=== PATIENT | female | born 1995 | race Hispanic/Latino ===

== ENCOUNTER 2016-08-30 14:08 | Emergency (ER) | payer OTHER ==
[~2016-08-30] VITALS: Ht 157.5 cm; Wt 49.9 kg
[2016-08-30 15:21] LABS: BASO % 0.5 % (0.0-1.0); EOS # 0.1 K/mm3 (0.0-0.50); EOS % 1.1 % (0.0-3.0); LARGE UNSTAINED CELL # 0.2 K/mm3 (0.0-0.4); LARGE UNSTAINED CELL % 2.5 % (0.0-4.0); LYMPH # 2.6 K/mm3 (1.5-6.5); LYMPH % 41.1 % (24.0-44.0); MEAN CORPUSCULAR HEMOGLOBIN 30.2 pg (27.0-33.0); MEAN CORPUSCULAR HGB CONC 33.7 g/dl (32.0-36.5); MEAN CORPUSCULAR VOLUME 89.7 fl (80.0-96.0); MONO # 0.4 K/mm3 (0.0-0.8); MONO % 6.5 % (0.0-5.0); NEUTROPHILS # 2.9 K/mm3 (1.8-7.7); NEUTROPHILS % 48.2 % (36.0-66.0); PLATELET COUNT, AUTOMATED 208 k/mm3 (150-450); WHITE BLOOD COUNT 5.9 K/mm3 (4.0-10.0)
[2016-08-30 16:47] VITALS: BP 121/56
== END 2016-08-30 17:11 | disposition home or self-care (01) ==
LOC: M ED 15:07
DX: N83.291 Other ovarian cyst, right side (principal); Z3A.01 Less than 8 weeks gestation of pregnancy

== ENCOUNTER → 2016-09-02 | Outpatient (CLI) | payer OTHER | LOC: M LAB 09:26 | PROVIDERS: ATTEND Nurse Practitioner Family | DX: R10.9 Unspecified abdominal pain (principal) ==

== ENCOUNTER → 2016-09-11 | Outpatient (CLI) | payer OTHER ==
[~2016-09-11] MED LIST: BENA25TA9 PO; KEFL500C7 PO; PRENTAB55 PO
[2016-09-11 13:27] LABS: BASO % 0.5 % (0.0-1.0); EOS # 0.1 K/mm3 (0.0-0.50); EOS % 1.6 % (0.0-3.0); LARGE UNSTAINED CELL # 0.1 K/mm3 (0.0-0.4); LARGE UNSTAINED CELL % 2.2 % (0.0-4.0); LYMPH # 2.1 K/mm3 (1.5-6.5); LYMPH % 39.8 % (24.0-44.0); MEAN CORPUSCULAR HEMOGLOBIN 30.5 pg (27.0-33.0); MEAN CORPUSCULAR HGB CONC 33.6 g/dl (32.0-36.5); MEAN CORPUSCULAR VOLUME 90.9 fl (80.0-96.0); MONO # 0.3 K/mm3 (0.0-0.8); MONO % 6.2 % (0.0-5.0); NEUTROPHILS # 2.5 K/mm3 (1.8-7.7); NEUTROPHILS % 49.7 % (36.0-66.0); PLATELET COUNT, AUTOMATED 167 k/mm3 (150-450); RED CELL DISTRIBUTION WIDTH 12.8 % (11.5-14.5); WHITE BLOOD COUNT 4.9 K/mm3 (4.0-10.0)
[2016-09-11 14:19] LABS: HBsAg Prenatal NEGATIVE (NEGATIVE)
== END ==
LOC: M SMT 09:15
PROVIDERS: ATTEND Advanced Practice Midwife
DX: Z34.81 Encounter for supervision of other normal pregnancy, first trimester (principal)

== ENCOUNTER 2016-09-16 15:00 | Emergency (ER) | payer OTHER ==
[~2016-09-16] VITALS: Ht 160 cm; Wt 42.6 kg
[2016-09-16 15:01] VITALS: BP 111/61
[2016-09-16] MEDS ORDERED: PRENTAB55 PO (15:33)
[2016-09-16] MEDS ORDERED: KEFL500C7 PO (16:07)
[2016-09-16] MEDS ORDERED: BENA25TA9 PO (16:07)
== END 2016-09-16 16:19 | disposition home or self-care (01) ==
LOC: M ED 15:00
DX: L03.114 Cellulitis of left upper limb (principal)

== ENCOUNTER 2016-12-04 12:27 | Emergency (ER) | payer OTHER ==
[~2016-12-04] VITALS: Ht 160 cm; Wt 52.3 kg
[2016-12-04 12:27] VITALS: BP 117/59
[~2016-12-04 12:27] MED LIST changes: +BENA25TA10 PO; -BENA25TA9 PO; +KEFL500C17 PO; -KEFL500C7 PO
== END 2016-12-04 13:36 | disposition home or self-care (01) ==
LOC: M ED 12:27
DX: O9A.212 Injury, poisoning and certain other consequences of external causes complicating pregnancy, second trimester (principal); S93.601A Unspecified sprain of right foot, initial encounter; Z3A.18 18 weeks gestation of pregnancy; X50.1XXA Overexertion from prolonged static or awkward postures, initial encounter; Y92.099 Unspecified place in other non-institutional residence as the place of occurrence of the external cause; Y93.01 Activity, walking, marching and hiking; Y99.9 Unspecified external cause status

== ENCOUNTER → 2016-12-17 | Outpatient (CLI) | payer OTHER ==
[~2016-12-17] MED LIST changes: +ACET50TA PO; +PRENTAB9 PO
--- NOTE | 2016-12-18 03:16 | REP ---
Clinical: Anatomical evaluation. Comparison: 08/30/2016 . Findings: Examination demonstrates a single live intrauterine in breech presentation. motion is identified by technologist. Placenta is noted anteriorly and grade zero without evidence for placenta previa or abruption. Amniotic fluid volume is normal. Cervix measures 4.9 cm in length and appears closed. No evidence for nuchal cord. Gestational age by current measurements 20 weeks 1 day with BISI 05/05/2017 . FHR equals 150 beats per minute. BPD 4.7 cm 20 weeks 0 days HC 17.9 cm 20 weeks 2 days AC 14.8 cm 20 weeks 1 day FL 3.4 cm 20 weeks 5 days HL 3.3 cm 21 weeks 1 day HC/AC ratio 1.21 Estimated weight 349 grams ( 56 percentile). Anatomical assessment demonstrates normal structures including cranium, choroid plexus, cavum, cerebellum/posterior fossa, lungs, diaphragm, stomach, cord insertion/three-vessel cord, kidneys/bladder, spine, and extremities. Impression: Single live intrauterine in breech presentation demonstrating appropriate estimated weight based on current measurements. Limited evaluation of the facial features and heart/ventricular outflow tracts may warrant reevaluation and follow-up. No abnormalities identified. Signed by Sachin Montgomery MD 12/18/2016 03:07 A
== END ==
LOC: M SMT 13:10
PROVIDERS: ATTEND Advanced Practice Midwife
DX: Z34.80 Encounter for supervision of other normal pregnancy, unspecified trimester (principal)

== ENCOUNTER → 2017-01-14 | Outpatient (CLI) | payer OTHER ==
--- NOTE | 2017-01-14 14:42 | REP ---
OB ULTRASOUND: Real-time sonographic evaluation of the gravid uterus is performed. There is a single living intrauterine gestation with an estimated gestational age of 24 weeks 1 day, EDC 05/05/2017. Today's measurements indicate appropriate growth. BPD 60 mm = 24 weeks 3 days, 57th percentile HC 223 mm = 24 weeks 3 days, 52nd percentile AC 194 mm = 24 weeks 1 day, 50th percentile Femur length 43 mm = 24 weeks 1 day, 50th percentile HC/AC ratio 1.15 within normal range. Estimated weight 667 grams, 45th percentile. Cervix is closed and measures 5.8 cm in length. heart rate 144 beats per minute. SEEN/GROSSLY UNREMARKABLE Lateral ventricles Yes Posterior fossa Yes Upper lip Yes Four-chamber heart Yes LVOT Yes RVOT Yes Stomach Yes Cord insertion Yes Three vessel cord Yes Kidneys Yes Bladder Yes Spine No position: Breech. Placenta: Anterior and grade 1 with no previa or abruption. Amniotic fluid: Within normal limits. Signed by Gurpreet Henriquez MD 01/14/2017 02:44 P
== END ==
LOC: M SMT 13:04
PROVIDERS: ATTEND Specialist
DX: Z34.82 Encounter for supervision of other normal pregnancy, second trimester (principal); Z36.2 Encounter for other antenatal screening follow-up

== ENCOUNTER 2017-01-29 14:54 | Outpatient (CLI) | payer OTHER ==
[~2017-01-29] VITALS: Ht 160 cm; Wt 59.1 kg
[~2017-01-29 14:54] MED LIST changes: -ACET50TA PO; -PRENTAB9 PO
[2017-01-29] MEDS ORDERED: PRENTAB9 PO (15:16)
[2017-01-29] MEDS ORDERED: ACET50TA PO (15:16)
[2017-01-29 16:00] VITALS: BP 102/51
[2017-01-29] MEDS ORDERED: PERCOCET 5MG/325MG TAB PO ONE (16:00)
[2017-01-29 16:52] VITALS: BP 101/52
== END 2017-01-29 17:01 | disposition home or self-care (01) ==
LOC: M LDO 14:54
PROVIDERS: ATTEND Specialist
DX: O26.892 Other specified pregnancy related conditions, second trimester (principal); Z3A.26 26 weeks gestation of pregnancy; M54.5 Low back pain; M46.1 Sacroiliitis, not elsewhere classified

== ENCOUNTER 2017-02-05 19:42 | Outpatient (CLI) | payer OTHER ==
[~2017-02-05] VITALS: Ht 160 cm; Wt 60.6 kg
[~2017-02-05 19:42] MED LIST changes: +ACET50TA PO; +PRENTAB9 PO
[2017-02-05 20:08] VITALS: BP 106/55
[2017-02-05] MEDS ORDERED: CYCLOBENZAPRINE 10 MG TAB PO ONE (22:00)
== END 2017-02-05 22:30 | disposition home or self-care (01) ==
LOC: M LDO 19:42
PROVIDERS: ATTEND Obstetrics & Gynecology
DX: O26.892 Other specified pregnancy related conditions, second trimester (principal); Z3A.27 27 weeks gestation of pregnancy; M54.5 Low back pain

== ENCOUNTER → 2017-04-09 | Outpatient (REF) | payer OTHER | LOC: M LAB REF 17:00 | DX: Z34.83 Encounter for supervision of other normal pregnancy, third trimester (principal) ==

== ENCOUNTER 2017-04-15 07:28 | Inpatient (IN) | payer OTHER ==
[2017-04-15 08:34] LABS: HEMATOCRIT 38.6 % (36.0-47.0); HEMOGLOBIN 12.8 g/dl (12.0-16.0); MEAN CORPUSCULAR HGB CONC 33.2 g/dl (32.0-36.5); MEAN CORPUSCULAR VOLUME 87.3 fl (80.0-96.0); PLATELET COUNT, AUTOMATED 184 10^3/uL (150-450); RED BLOOD COUNT 4.42 10^6/uL (4.00-5.40); RED CELL DISTRIBUTION WIDTH 14.2 % (11.5-14.5)
[2017-04-15] MEDS: BUTORPHANOL 2 MG/ML INJ (J0595) IV (08:54)
[2017-04-15] MEDS: PROMETHAZINE INJ 25 MG/ML VIAL (J2550) IV (08:54)
[2017-04-15] MEDS: LACTATED RINGER'S 1000 ML IV (11:59)
[2017-04-15] MEDS ORDERED: FENTANYL 2MCG/ML ROPIVACAINE 0.2% IN 0.9% NACL 200ML IVBAG As Ordered (12:54)
[2017-04-15] MEDS: LR 1,000 ML IV ×2 (13:32→19:13)
[2017-04-15] MEDS ORDERED: EPIDURAL/PCA KEYS XX (16:00)
[2017-04-15] MEDS ORDERED: REFRIGERATOR IV KEYS XX (16:00)
[2017-04-15] MEDS ORDERED: NALOXONE INJ 0.4 MG/1 ML VIAL (J2310) IV (16:00)
[2017-04-15] MEDS ORDERED: EPIDURAL COMMENT XX (16:00)
[2017-04-15] MEDS ORDERED: LACTATED RINGER'S 1000 ML IV (16:00)
[2017-04-15] MEDS ORDERED: diphenhydrAMINE INJ 50MG/ML VIAL (J1200) IV (16:00)
[2017-04-15] MEDS ORDERED: ePHEDrine INJ 50 MG/ML VIAL IV (16:00)
[2017-04-15] MEDS ORDERED: FENTANYL/ROPIVACAINE/NACL BAG 200 ML EPIDURAL (16:00)
[2017-04-15] MEDS ORDERED: ONDANSETRON 4MG/2ML VIAL (J2405) IV ×2 (16:00→19:15)
[2017-04-15] MEDS ORDERED: OXYTOCIN 30 UNITS IN 0.9% NaCl 500ML IV BAG (J2590) As Ordered (18:41)
[2017-04-15] MEDS: OXYTOCIN DRIP 30 UNITS in APPROPRIATE DILUENT 1 EA IV (19:13)
[2017-04-15] MEDS ORDERED: PROMETHAZINE 25 MG TAB PO (19:15)
[2017-04-15] MEDS ORDERED: RHOGAM 300 MCG (1500 IU) INJ (J2790) IM (19:15)
[2017-04-15] MEDS ORDERED: DOCUSATE SODIUM 100 MG CAP PO (19:15)
[2017-04-15] MEDS ORDERED: DIBUCAINE 1% OINTMENT 30GM TOP (19:15)
[2017-04-15] MEDS ORDERED: MEASLES,MUMPS,RUBELLA VACCINE INJ (MMR-II) (90707) SC (19:15)
[2017-04-16] MEDS: ACETAMINOPHEN 500 MG TAB PO ×3 (02:58→19:26)
[2017-04-16] MEDS: IBUPROFEN 800 MG TAB PO ×2 (04:06→05:57)
[2017-04-16] MEDS: PRENATAL VITAMINS CHEWABLE TABLET PO (08:03)
[2017-04-16] MEDS: KETOROLAC 30 MG/ML VIAL (J1885) IV (20:49)
[2017-04-17] MEDS: KETOROLAC 30 MG/ML VIAL (J1885) IV ×2 (03:18→09:32)
[2017-04-17] MEDS: ACETAMINOPHEN 500 MG TAB PO (03:18)
[2017-04-17] MEDS: PRENATAL VITAMINS CHEWABLE TABLET PO (09:31)
== END 2017-04-17 12:50 | disposition home or self-care (01) | DRG 560 ==
LOC: M LDO 07:28 → M LDI 08:00 → M OBS 21:29
PROVIDERS: Obstetrics & Gynecology
PROC: 10E0XZZ Delivery of Products of Conception, External Approach (ICD-10-PCS; principal; 2017-04-15)
PROC: 10907ZC Drainage of Amniotic Fluid, Therapeutic from Products of Conception, Via Natural or Artificial Opening (ICD-10-PCS; 2017-04-15)
PROC: 0HQ9XZZ Repair Perineum Skin, External Approach (ICD-10-PCS; 2017-04-15)
DX: O34.211 Maternal care for low transverse scar from previous cesarean delivery (principal); O70.0 First degree perineal laceration during delivery; Z37.0 Single live birth; Z3A.37 37 weeks gestation of pregnancy

== ENCOUNTER → 2017-06-11 | Outpatient (CLI) | payer OTHER | LOC: M SMT 14:03 | DX: M54.6 Pain in thoracic spine (principal); M53.85 Other specified dorsopathies, thoracolumbar region | CPT/HCPCS: 72070 ==

== ENCOUNTER → 2017-07-08 | Outpatient (REF) | payer OTHER | LOC: M SFHCPLAZ 14:37 | DX: Z00.00 Encounter for general adult medical examination without abnormal findings (principal) | CPT/HCPCS: 36415 ==

== ENCOUNTER → 2017-07-15 | Outpatient (REF) | payer OTHER ==
[2017-07-15 15:57] LABS: BASO % 0.4 % (0.0-1.0); EOS # 0.1 10^3/uL (0.0-0.50); EOS % 1.4 % (0.0-3.0); HEMATOCRIT 40.6 % (36.0-47.0); HEMOGLOBIN 13.3 g/dl (12.0-15.5); IMMATURE GRANULOCYTE % 0.1 % (0-3.0); LYMPH # 2.4 10^3/uL (1.5-6.5); LYMPH % 34.1 % (24.0-44.0); MEAN CORPUSCULAR HEMOGLOBIN 28.6 pg (27.0-33.0); MEAN CORPUSCULAR HGB CONC 32.8 g/dl (32.0-36.5); MEAN CORPUSCULAR VOLUME 87.3 fl (80.0-96.0); MONO # 0.6 10^3/uL (0.0-0.8); MONO % 8.9 % (0.0-5.0); NEUTROPHILS # 3.9 10^3/uL (1.8-7.7); NEUTROPHILS % 55.1 % (36.0-66.0); PLATELET COUNT, AUTOMATED 230 10^3/uL (150-450); RED BLOOD COUNT 4.65 10^6/uL (4.00-5.40); RED CELL DISTRIBUTION WIDTH 13.7 % (11.5-14.5); WHITE BLOOD COUNT 7.1 10^3/uL (4.0-10.0)
[2017-07-15 16:18] LABS: ALBUMIN/GLOBULIN RATIO 0.98 (1.00-1.93); ALKALINE PHOSPHATASE 88 U/L (45-117); ALT/SGPT 51 U/L (12-78); ANION GAP 6 MEQ/L (8-16); AST/SGOT 28 U/L (7-37); BILIRUBIN,TOTAL 0.3 MG/DL (0.2-1.0); BLOOD UREA NITROGEN 13 MG/DL (7-18); CARBON DIOXIDE LEVEL 30 MEQ/L (21-32); CHLORIDE LEVEL 104 MEQ/L (98-107); CREATININE FOR GFR 0.69 MG/DL (0.55-1.30); FREE T4 0.98 NG/DL (0.76-1.46); GLOMERULAR FILTRATION RATE > 60.0 (>60); GLUCOSE, FASTING 94 MG/DL (70-100); POTASSIUM SERUM 4.4 MEQ/L (3.5-5.1); SODIUM LEVEL 140 MEQ/L (136-145); TOTAL PROTEIN 8.1 GM/DL (6.4-8.2)
[2017-07-15 16:26] LABS: TOTAL 25(OH) VITAMIN D 15.9 NG/ML (30.0-100.0)
== END ==
LOC: M SFHCPLAZ 13:04
DX: M54.5 Low back pain (principal); R41.840 Attention and concentration deficit; F41.9 Anxiety disorder, unspecified
CPT/HCPCS: 84443

== ENCOUNTER 2018-01-10 17:57 | Emergency (ER) | payer OTHER, MEDICAID ==
[2018-01-10 19:47] LABS: KETONE, URINE AUTO RFX NEGATIVE (NEGATIVE); LEUKOCYTE ESTERASE UR AUTO RFX NEGATIVE (NEGATIVE); NITRITE, URINE AUTO RFX NEGATIVE (NEGATIVE); RBC, URINE AUTO RFX 1 /HPF (0-3); SPECIFIC GRAVITY UR AUTO RFX 1.005 (1.002-1.035); SQUAM EPITHELIAL CELL UR AURFX 1 /HPF (0-6); WBC, URINE AUTO RFX 0 /HPF (0-3)
[2018-01-10 21:58] LABS: CONTROL LINE UCG INT CTR LINE PRESENT
[2018-01-10 21:59] LABS: URINE PREG TEST NEGATIVE (NEGATIVE)
[2018-01-10] MEDS: KETOROLAC TROMETHAMINE 10 MG TAB PO (22:06)
[2018-01-10] MEDS: METHOCARBAMOL 750 MG TAB PO (22:06)
== END 2018-01-10 23:38 | disposition home or self-care (01) ==
LOC: M ED 17:57
DX: M54.41 Lumbago with sciatica, right side (principal); F90.9 Attention-deficit hyperactivity disorder, unspecified type; Z79.899 Other long term (current) drug therapy
CPT/HCPCS: 74176

== ENCOUNTER → 2018-02-01 | Outpatient (REF) | payer OTHER ==
[2018-02-01 16:49] LABS: TOTAL 25(OH) VITAMIN D 15.1 NG/ML (30.0-100.0)
== END ==
LOC: M SFHCPLAZ 13:12
DX: E55.9 Vitamin D deficiency, unspecified (principal)
CPT/HCPCS: 82306

== ENCOUNTER → 2018-02-08 | Outpatient (REF) | payer OTHER ==
[2018-02-08 16:05] LABS: AMORPHOUS SEDIMENT SMALL (NEGATIVE); APPEARANCE, URINE TURBID (CLEAR); BACTERIA, URINE AUTO NEGATIVE (NEGATIVE); BILIRUBIN, URINE AUTO NEGATIVE (NEGATIVE); BLOOD, URINE BLOOD NEGATIVE (NEGATIVE); COLOR, URINE YELLOW (YELLOW); GLUCOSE, URINE (UA) AUTO NEGATIVE (NEGATIVE); KETONE, URINE AUTO 1+ mg/dL (NEGATIVE); LEUKOCYTE ESTERASE, URINE AUTO NEGATIVE (NEGATIVE); MUCUS, URINE LARGE (NEGATIVE); NITRITE, URINE AUTO NEGATIVE (NEGATIVE); PROTEIN, URINE AUTO NEGATIVE (NEGATIVE); RBC, URINE AUTO 0 /HPF (0-3); SPECIFIC GRAVITY URINE AUTO 1.029 (1.002-1.035); SQUAMOUS EPITHELIAL CELL UR AU 0 /HPF (0-6); UROBILINOGEN, URINE AUTO 0.2 mg/dL (0.0-2.0); WBC, URINE AUTO 5 /HPF (0-3)
== END ==
LOC: M SFHCPLAZ 15:42
DX: R30.0 Dysuria (principal)
CPT/HCPCS: 81001

== ENCOUNTER → 2018-04-05 | Outpatient (CLI) | payer OTHER ==
[~2018-04-05] MED LIST changes: -ACET50TA PO; +COLA100C5 PO; +IBUP-1114 PO; +MAPA500T2 PO; +METH-914; +METH36TA2; +NORCOTAB PO; +PERCOCET PO; +ROBA500T PO
[2018-04-05 14:27] LABS: FREE T4 0.91 NG/DL (0.76-1.46)
[2018-04-05 14:57] LABS: HCG, SERUM QUALITATIVE NEGATIVE (NEGATIVE)
[2018-04-06 10:57] LABS: HEPATITIS B SURFACE ANTIGEN NEGATIVE (NEGATIVE)
[2018-04-06 11:23] LABS: HEPATITIS B CORE ANTIBODY IGM NEGATIVE (NEGATIVE); HEPATITIS C VIRUS ABY INDEX 0.1 INDEX (<0.8)
[2018-04-06 11:25] LABS: HIV 1&2 SCREEN CENTAUR NEGATIVE (NEGATIVE)
[2018-04-06 11:26] LABS: HEPATITIS A ANTIBODY IGM NEGATIVE (NEGATIVE)
== END ==
LOC: M SMT 11:48
PROVIDERS: ATTEND Advanced Practice Midwife
DX: N92.6 Irregular menstruation, unspecified (principal); Z11.3 Encounter for screening for infections with a predominantly sexual mode of transmission

== ENCOUNTER → 2018-04-05 | Outpatient (REF) | payer OTHER, MEDICAID ==
[2018-04-05 15:48] LABS: CHLAMYDIA DNA AMPLIFICATION NEGATIVE (NEGATIVE); GC DNA AMPLIFICATION NEGATIVE (NEGATIVE)
== END ==
LOC: M LAB REF 13:34
PROVIDERS: ATTEND Advanced Practice Midwife
DX: Z11.3 Encounter for screening for infections with a predominantly sexual mode of transmission (principal)

== ENCOUNTER 2018-04-27 15:28 | Emergency (ER) | payer MEDICAID, OTHER ==
[~2018-04-27] VITALS: Ht 160 cm; Wt 54.5 kg
[2018-04-27 15:28] VITALS: BP 123/62
[2018-04-27] MEDS ORDERED: LIDOCAINE 1% MDV 20ML VIAL IM ONE (16:00)
[2018-04-27] MEDS ORDERED: NAPROXEN 250 MG TAB PO ONE (16:00)
[2018-04-27] MEDS ORDERED: POLYSPORIN TOPICAL OINTMENT 15GM As Ordered ONE (16:36)
[2018-04-27] MEDS ORDERED: BACITRACIN OINT 30GM TOP ONE (16:45)
--- NOTE | 2018-04-27 16:49 | REP ---
RIGHT FINGERS, FOUR VIEWS: HISTORY: 5th digit injury. There is no acute fracture or dislocation. The joint spaces are normal in appearance. IMPRESSION:There is no acute fracture or dislocation. Electronically Signed by Hai Garnica MD 04/27/2018 04:54 P
[2018-04-27] MEDS ORDERED: ADACEL/BOOSTRIX VACCINE (DIPHTH/PERTUSS/ACELL/TETANUS)0.5ML SYR (90715) IM ONE (17:00)
== END 2018-04-27 17:25 | disposition home or self-care (01) ==
LOC: M ED 15:28
DX: S61.206A Unspecified open wound of right little finger without damage to nail, initial encounter (principal); W23.1XXA Caught, crushed, jammed, or pinched between stationary objects, initial encounter; Y92.89 Other specified places as the place of occurrence of the external cause

== ENCOUNTER 2018-07-07 09:24 | Emergency (ER) | payer OTHER ==
[~2018-07-07] VITALS: Ht 160 cm; Wt 53.6 kg
[~2018-07-07 09:24] MED LIST changes: +HYDR-3715 PO; +METH-1022; -METH-914; -NORCOTAB PO
--- NOTE | 2018-07-07 10:17 | REP ---
Right knee five views : There is no fracture or dislocation. Mineralization and joint spaces are normal. There are no calcifications or foreign bodies. Impression: Negative right knee . Electronically Signed by Gurpreet Lao MD 07/07/2018 10:09 A
[2018-07-07] MEDS ORDERED: NAPR-837 PO (10:36)
[2018-07-07 10:51] VITALS: BP 113/65
== END 2018-07-07 11:20 | disposition home or self-care (01) ==
LOC: M ED 09:24
DX: S83.411A Sprain of medial collateral ligament of right knee, initial encounter (principal); X50.9XXA Other and unspecified overexertion or strenuous movements or postures, initial encounter; Y92.018 Other place in single-family (private) house as the place of occurrence of the external cause

== ENCOUNTER → 2018-08-10 | Outpatient (CLI) | payer OTHER ==
[~2018-08-10] MED LIST changes: +NAPR-837 PO
--- NOTE | 2018-08-10 15:12 | REP ---
MRI RIGHT KNEE: TECHNIQUE: Axial proton density fat saturation, sagittal proton density T2 STIR, water excitation, coronal proton density, proton density fat saturation. Menisci are intact with no evidence of a tear. The cruciate and collateral ligaments are intact. The extensor mechanism is intact. No osteochrondral defect is seen. There is no bone marrow edema or occult fracture. There is a small joint effusion. No abnormalities are seen in the popliteal fossa. The medial and lateral patellar reticula are intact. IMPRESSION: No meniscal tear. Cruciate and collateral ligaments intact. Small joint effusion. No occult fracture. Electronically Signed by Gurpreet Henriquez MD 08/11/2018 12:33 P
== END ==
LOC: M RAD 08:58
PROVIDERS: ATTEND Orthopaedic Surgery Sports Medicine
DX: M25.561 Pain in right knee (principal); M25.461 Effusion, right knee

== ENCOUNTER 2019-01-06 14:44 | Emergency (ER) | payer OTHER ==
[~2019-01-06] VITALS: Ht 160 cm; Wt 54.5 kg
[2019-01-06 15:07] LABS: HEMATOCRIT 45.4 % (36.0-47.0); HEMOGLOBIN 14.6 g/dl (12.0-15.5); MEAN CORPUSCULAR HEMOGLOBIN 29.2 pg (27.0-33.0); MEAN CORPUSCULAR HGB CONC 32.2 g/dl (32.0-36.5); MEAN CORPUSCULAR VOLUME 90.8 fl (80.0-96.0); PLATELET COUNT, AUTOMATED 216 10^3/uL (150-450)
[2019-01-06 15:33] LABS: HCG, SERUM QUALITATIVE NEGATIVE (NEGATIVE)
[2019-01-06 15:45] LABS: ACETAMINOPHEN LEVEL < 2.0 UG/ML (10.0-30.0); ALBUMIN 4.8 GM/DL (3.2-5.2); ALT/SGPT 18 U/L (12-78); BILIRUBIN,DIRECT 0.2 MG/DL (0.0-0.2); BILIRUBIN,TOTAL 0.8 MG/DL (0.2-1.0); BLOOD UREA NITROGEN 11 MG/DL (7-18); CALCIUM LEVEL 9.7 MG/DL (8.5-10.1); CARBON DIOXIDE LEVEL 25 MEQ/L (21-32); CHLORIDE LEVEL 103 MEQ/L (98-107); CREATININE FOR GFR 0.68 MG/DL (0.55-1.30); ETHYL ALCOHOL (ETHANOL) < 0.003 % (0.000-0.010); GLOMERULAR FILTRATION RATE > 60.0 (>60); GLUCOSE, FASTING 81 MG/DL (70-100); POTASSIUM SERUM 3.8 MEQ/L (3.5-5.1); SALICYLATE LEVEL 3.4 MG/DL (5.0-30.0); SODIUM LEVEL 136 MEQ/L (136-145); THYROID STIMULATING HORMONE 0.844 uIU/ML (0.358-3.740); TOTAL PROTEIN 8.8 GM/DL (6.4-8.2)
[2019-01-06 17:45] LABS: AMPHETAMINES LEVEL URINE NEGATIVE (NEGATIVE); BARBITURATES URINE NEGATIVE (NEGATIVE); BENZODIAZEPINES URINE NEGATIVE (NEGATIVE); CANNABINOIDS URINE POSITIVE (NEGATIVE); COCAINE METABOLITE URINE NEGATIVE (NEGATIVE); METHADONE URINE NEGATIVE (NEGATIVE); OPIATES URINE NEGATIVE (NEGATIVE); PHENCYCLIDINE URINE NEGATIVE (NEGATIVE)
--- NOTE | 2019-01-06 20:24 | ECGEPIP ---
[facility] - ED Test Date: 2019-01-06 Pat Name: OLU SAUNDERS Department: Room: - Gender: Female [employer]ator: : 1995 Requested By: MICKI Francisco Order Number: [id number] Reading MD: Renzo Villarreal Measurements Intervals [place] Rate: 60 P: 15 ME: 174 QRS: 0 QRSD: 107 T: 25 QT: 405 QTc: 407 Interpretive Statements SINUS RHYTHM POSSIBLE RIGHT VENTRICULAR CONDUCTION DELAY NONSPECIFIC ST T WAVE CHANGES NO PRIOR ECG FOR COMPARISON Electronically Signed on 01-06-2019 20:24:24 EDT by Renzo Villarreal
[2019-01-07 05:31] VITALS: BP 139/63
== END 2019-01-07 05:35 ==
LOC: M ED 14:44
DX: F32.9 Major depressive disorder, single episode, unspecified (principal); R45.851 Suicidal ideations; F90.9 Attention-deficit hyperactivity disorder, unspecified type; Z87.891 Personal history of nicotine dependence
CPT/HCPCS: 36415; 80048; 80076; 80307; 84443; 84703; 85027; 93005; 99284; G0480

== ENCOUNTER 2019-03-28 09:30 | Emergency (ER) | payer OTHER ==
[~2019-03-28] VITALS: Ht 160 cm; Wt 57.9 kg
[2019-03-28] MEDS ORDERED: OLAN10TA2 (09:45)
[2019-03-28] MEDS ORDERED: LORA1TAB4 (09:45)
[2019-03-28] MEDS ORDERED: PRAZ1CAP (09:45)
[2019-03-28] MEDS ORDERED: DIVA500T94 (09:45)
[2019-03-28] MEDS ORDERED: ZYPR10TA (09:45)
[2019-03-28 11:11] VITALS: BP 114/54
== END 2019-03-28 11:11 | disposition home or self-care (01) ==
LOC: M ED 09:30
DX: N92.6 Irregular menstruation, unspecified (principal); R35.0 Frequency of micturition; F31.9 Bipolar disorder, unspecified; F90.9 Attention-deficit hyperactivity disorder, unspecified type; Z79.899 Other long term (current) drug therapy

== ENCOUNTER 2019-04-01 12:50 | Emergency (ER) | payer OTHER ==
[~2019-04-01] VITALS: Ht 160 cm; Wt 57.9 kg
[~2019-04-01 12:50] MED LIST changes: +DIVA500T94; +LORA1TAB4; +OLAN10TA2; +PRAZ1CAP; +ZYPR10TA
[2019-04-01] MEDS ORDERED: KETOROLAC 30 MG/ML VIAL (J1885) IM ONE (14:15)
[2019-04-01] MEDS ORDERED: BENZOCAINE 20% GEL 9GM TUBE (ANBESOL MAX STRENGTH) TOP ONE (14:15)
[2019-04-01] MEDS ORDERED: LIDOCAINE 2% W/ EPINEPHRINE 1.7 ML DENTAL INJ SM ONE (14:15)
[2019-04-01] MEDS ORDERED: IBUP80TA PO (15:04)
[2019-04-01] MEDS ORDERED: AMOX500C PO (15:04)
[2019-04-01 15:11] VITALS: BP 121/56
== END 2019-04-01 15:12 | disposition home or self-care (01) ==
LOC: M ED 12:50
DX: S02.5XXA Fracture of tooth (traumatic), initial encounter for closed fracture (principal); Y92.9 Unspecified place or not applicable; Y93.9 Activity, unspecified; Y99.9 Unspecified external cause status; F90.9 Attention-deficit hyperactivity disorder, unspecified type; F32.9 Major depressive disorder, single episode, unspecified; F41.9 Anxiety disorder, unspecified; Z79.2 Long term (current) use of antibiotics; Z79.899 Other long term (current) drug therapy
CPT/HCPCS: 64400; 96372; 99283; J1885

== ENCOUNTER 2020-02-02 12:28 | Emergency (ER) | payer OTHER ==
[~2020-02-02] VITALS: Ht 160 cm; Wt 43.3 kg
[~2020-02-02 12:28] MED LIST changes: +AMOX500C PO; +IBUP80TA PO
[2020-02-02] MEDS ORDERED: BUPR-69 PO (12:36)
[2020-02-02] MEDS ORDERED: GABA-1171 PO (12:36)
[2020-02-02 13:11] LABS: BASO # 0.1 10^3/uL (0.0-0.2); BASO % 0.7 % (0.0-1.0); EOS # 0.1 10^3/uL (0.0-0.5); EOS % 1.2 % (0.0-3.0); HEMATOCRIT 43.7 % (36.0-47.0); HEMOGLOBIN 13.7 g/dl (12.0-15.5); LYMPH # 2.1 10^3/uL (1.5-5.0); LYMPH % 29.1 % (24.0-44.0); MEAN CORPUSCULAR HEMOGLOBIN 28.6 pg (27.0-33.0); MEAN CORPUSCULAR HGB CONC 31.4 g/dl (32.0-36.5); MEAN CORPUSCULAR VOLUME 91.2 fl (80.0-96.0); MONO # 0.6 10^3/uL (0.0-0.8); MONO % 8.3 % (0.0-5.0); NEUTROPHILS # 4.4 10^3/uL (1.5-8.5); NEUTROPHILS % 60.1 % (36.0-66.0); PLATELET COUNT, AUTOMATED 261 10^3/uL (150-450); RED BLOOD COUNT 4.79 10^6/uL (4.00-5.40); WHITE BLOOD COUNT 7.3 10^3/uL (4.0-10.0)
[2020-02-02 13:44] LABS: ALBUMIN 4.3 GM/DL (3.2-5.2); BILIRUBIN,DIRECT 0.1 MG/DL (0.0-0.2); BILIRUBIN,TOTAL 0.5 MG/DL (0.2-1.0); TOTAL PROTEIN 8.5 GM/DL (6.4-8.2)
[2020-02-02] MEDS ORDERED: NS 1,000 ML IV SCH (13:47)
[2020-02-02] MEDS ORDERED: ONDANSETRON 4MG/2ML VIAL IV ONE (14:00)
[2020-02-02] MEDS ORDERED: PANTOPRAZOLE 40MG VIAL (C9113 PER 1) IV ONE (14:00)
--- NOTE | 2020-02-02 14:27 | REP ---
INDICATION: ruq pain. COMPARISON: 01/10/2018 TECHNIQUE: Noncontrast examination with coronal and sagittal reconstructions. FINDINGS: CT abdomen: Lung bases remain clear. Heart is not enlarged there is no pericardial thickening or effusion. No hiatal hernia. There is no hepatosplenomegaly, focal hepatic or splenic mass nor intrahepatic biliary dilatation. Gallbladder shows no calcified stone or mass. No upper abdominal ascites adrenal glands were normal. Kidneys appear grossly symmetric and without stone, mass or hydronephrosis. There is stool and gas are seen throughout the colon without signs of colitis or diverticulitis. No fluid in the peritoneal gutter. Small bowel loops fluid-filled without dilatation or air-fluid levels. The aorta is without aneurysm. No periaortic, retroperitoneal or mesenteric lymphadenopathy identified. Lung window review of all CT slices in the abdomen and pelvis shows no perforation or free air. Bone windows show lumbar, lower thoracic vertebral levels, posterior elements, visualized ribs and lumbosacral junction intact. CT pelvis: Sacrum, pelvis and hips were all unremarkable uterus anteverted cysts, slightly tilted towards the right but not enlarged. No pelvic mass fluid-filled small bowel loops in the deep pelvis without dilatation the cecum was unremarkable. Distal left colon sigmoid and rectum intact no ventral or inguinal hernia nor pathologic sized inguinal adenopathy. The bladder shows no mass wall thickening or stone within. There are some pelvic phleboliths on the left side which are unchanged. No hydroureter or ureteral stone in the abdomen and pelvis. IMPRESSION: 1. No abdominal or pelvic adenopathy, ascites, perforation or free air. I see no inflammatory changes involving the colon or small bowel. Appendix is not reliably visualized but I see no inflammatory changes adjacent to the cecum. 2. No pelvic mass and the solid organs in the upper abdomen were also unremarkable. No calcified gallstones. No renal, ureteral or bladder stone. 3. Bones unremarkable. Lung bases clear. <Electronically signed by Jarad Diaz > 02/02/20 [id number]
[2020-02-02] MEDS ORDERED: FAMO1TAB25 PO (15:10)
[2020-02-02] MEDS ORDERED: ANUS25SU PR (15:10)
[2020-02-02 15:15] VITALS: BP 111/53
== END 2020-02-02 15:25 | disposition home or self-care (01) ==
LOC: M ED 12:28
DX: K59.00 Constipation, unspecified (principal); K64.8 Other hemorrhoids; G89.29 Other chronic pain; Z79.899 Other long term (current) drug therapy
CPT/HCPCS: 36415; 74176; 80047; 80076; 81001; 83690; 84702; 85025; 86850; 86900; 86901; 96374; 96375; 99284; C9113; J2405

== ENCOUNTER → 2020-11-07 | Outpatient (REF) | payer OTHER ==
[~2020-11-07] MED LIST changes: +ANUS25SU PR; +BUPR-69 PO; +FAMO10TA50 PO; +GABA-1171 PO; -OLAN10TA2; +OLAN1TAB20
[2020-11-08 04:59] LABS: GC DNA AMPLIFICATION NEGATIVE (NEGATIVE)
== END ==
LOC: M SFHCWAGY 17:20
PROVIDERS: ATTEND Advanced Practice Midwife
DX: Z11.3 Encounter for screening for infections with a predominantly sexual mode of transmission (principal)

== ENCOUNTER 2021-01-01 15:46 | Emergency (ER) | payer OTHER ==
[~2021-01-01] VITALS: Ht 160 cm; Wt 59.5 kg
[2021-01-01] MEDS ORDERED: GABA-282 (15:50)
[2021-01-01] MEDS ORDERED: OXCA300T14 (15:50)
[2021-01-01] MEDS ORDERED: FLUO10CA16 (15:50)
--- OUTSIDE RECORDS SUMMARY | 2021-01-01 15:51 | CCD ---
Author Author [facility] Organization [facility] Address Unknown Phone Unavailable Care Team Providers Care Manager Document Name Role Phone Dille, E Pricila DDS Unavailable Unavailable Dille, E Pricila DDS Unavailable Unavailable Dille, E Pricila DDS Unavailable Unavailable Dille, E Pricila DDS Unavailable Unavailable ColletteLexxolga lidiasaundra Unavailable TOM, H LEE ANN FIELD HAULER Unavailable Unavailable TOM, H LEE ANN FIELD HAULER Unavailable Unavailable TOM, H LEE ANN FIELD HAULER Unavailable Unavailable TOM, H LEE ANN FIELD HAULER Unavailable Unavailable TOM, H LEE ANN FIELD HAULER Unavailable Unavailable TOM, H LEE ANN FIELD HAULER Unavailable Unavailable TOM, H LEE ANN FIELD HAULER Unavailable Unavailable TOM, H LEE NAN FIELD HAULER Unavailable Unavailable TOM, H LEE ANN FIELD HAULER Unavailable Unavailable Re-disclosure Warning The records that you are about to access may contain information from federally-assisted alcohol or drug abuse programs. If such information is present, then the following federally mandated warning applies: This information has been disclosed to you from records protected by federal confidentiality rules (42 CFR part 2). The federal rules prohibit you from making any further disclosure of this information unless further disclosure is expressly permitted by the written consent of the person to whom it pertains or as otherwise permitted by 42 CFR part 2. A general authorization for the release of medical or other information is NOT sufficient for this purpose. The Federal rules restrict any use of the information to criminally investigate or prosecute any alcohol or drug abuse patient.The records that you are about to access may contain highly sensitive health information, the redisclosure of which is protected by Article 27-F of the [facility] Public Health law. If you continue you may have access to information: Regarding HIV / AIDS; Provided by facilities licensed or operated by the [facility] Office of Mental Health; or Provided by the [facility] Office for People With Developmental Disabilities. If such information is present, then the following [facility] mandated warning applies: This information has been disclosed to you from confidential records which are protected by state law. State law prohibits you from making any further disclosure of this information without the specific written consent of the person to whom it pertains, or as otherwise permitted by law. Any unauthorized further disclosure in violation of state law may result in a fine or fpc sentence or both. A general authorization for the release of medical or other information is NOT sufficient authorization for further disc losure. Family History Family Member Name Family Member Gender Family Member Status Date o f Status Description Data Source(s) Unknown Unknown Problem [facility] ([facility]) Unknown Male Problem [facility] ([facility]) Encounters Encounter Providers Location Date Indications Data Source(s ) Outpatient Attender: LEE ANN YEE NP [facility] Johann l 11/14/2020 11:00:00 AM EDT - 11/14/2020 11:00:00 AM EDT [facility] ([facility]) Attender: LEE ANN YEE NP 11/14/2020 12:00:00 AM EDT [facility] ([facility]) [place] [address] [address] 11/07/2020 12:00:00 AM EDT [facility] ([facility]) [place] [address] [address] 10/15/2020 12:00:00 AM EDT eCW1 ([facility]) [place] [address] [address] 10/14/2020 12:00:00 AM EDT eCW1 ([facility]) Outpatient Attender: LEE ANN YEE NP [facility] Johann joel 09/24/2020 11:00:00 AM EDT - 09/24/2020 11:00:00 AM EDT [facility] ([facility]) Attender: LEE ANN YEE NP 09/24/2020 12:00:00 AM EDT [facility] ([facility]) Outpatient Attender: LEE ANN YEE NP [facility] Johann joel 08/26/2020 11:30:00 AM EDT - 08/26/2020 11:30:00 AM EDT [facility] ([facility]) Attender: LEE ANN YEE NP 08/26/2020 12:00:00 AM EDT [facility] ([facility]) Brief Individual Psychotherapy - 30 min Attender: [facility] 08/15/2020 12:00:00 PM EDT - 08/15/2020 12:00:00 PM EDT [facility] ([facility]) Attender: Renaldo Murdock 08/15/2020 12:00:00 AM EDT [facility] ([facility]) Attender: Renaldo Murdock 07/24/2020 12:00:00 AM EDT [facility] ([facility]) Extended Individual [facility] - [facility] 07/23/[facility] 01:15:00 AM EDT - 07/23/2020 01:15:00 AM EDT [facility] ([facility]) Extended Individual Psychotherapy - 45 min Attender: [facility] 07/09/2020 01:15:00 AM EDT - 07/09/2020 01:15:00 AM EDT [facility] ([facility]) Attender: Renaldo Murdock 07/09/2020 12:00:00 AM EDT [facility] ([facility]) Extended Individual Psychotherapy - 45 min Attender: [facility] 06/25/2020 11:00:00 AM EDT - 06/25/2020 11:00:00 AM EDT [facility] ([facility]) [facility]/25/2020 12:00:00 AM EDT [facility] ([facility]) Brief Individual Psychotherapy - 30 min Attender: [facility] 05/31/2020 05:00:00 AM EST - 05/31/2020 05:00:00 AM EST [facility] ([facility]) [facility] 05/31/2020 12:00:00 AM EST [facility] ([facility]) [id number]"Psychotherapy Attender: [facility] 05/17/2020 11:00:00 AM EST - 05/17/2020 11:00:00 AM EST [facility] ([facility]) Attender: [facility] 05/17/2020 12:00:00 AM EST [facility] ([facility]) Extended Individual Psychotherapy - 45 min Attender: [facility] 05/07/2020 11:00:00 AM EST - 05/07/2020 11:00:00 AM EST [facility] ([facility]) Outpatient Attender: LEE ANN YEE NP [facility] Johann joel 05/07/2020 02:30:00 AM EST - 05/07/2020 02:30:00 AM EST [facility] ([facility]) [facility] 05/07/2020 12:00:00 AM EST [facility] ([facility]) Attender: LEE ANN YEE NP 05/07/2020 12:00:00 AM EST [facility] ([facility]) Extended Individual Psychotherapy - 45 min Attender: [facility] 04/19/2020 11:00:00 AM EST - 04/19/2020 11:00:00 AM EST [facility] ([facility]) Attender: Renaldo Murdock 04/19/2020 12:00:00 AM EST [facility] ([facility]) Outpatient Attender: LEE ANN YEE NP [facility] 04/09/2020 10:00:00 AM EST - 04/09/2020 10:00:00 AM EST [facility] ([facility]) Attender: LEE ANN YEE NP 04/09/2020 12:00:00 AM EST [facility] ([facility]) Extended Individual Psychotherapy - 45 min Attender: Kristi Collette [facility] 04/02/2020 11:00:00 AM EST - 04/02/2020 11:00:00 AM EST [facility] ([facility]) Attender: Renaldo Murdock 04/02/2020 12:00:00 AM EST [facility] ([facility]) Outpatient Attender: LEE ANN YEE NP [facility] 03/12/2020 01:00:00 AM EST - 03/12/2020 01:00:00 AM EST [facility] ([facility]) Attender: LEE ANN YEE NP 03/12/2020 12:00:00 AM EST [facility] ([facility]) Outpatient Attender: LEE ANN YEE NP [facility] 02/13/2020 11:30:00 AM EST - 02/13/2020 11:30:00 AM EST [facility] ([facility]) Attender: LEE ANN YEE NP 02/13/2020 12:00:00 AM EST [facility] ([facility]) TEMPMHCTelemed--Crisis Brief Attender: Renaldo Murdock [facility] 01/23/2020 02:00:00 AM EST - 01/23/2020 02:00:00 AM EST [facility] ([facility]) Extended Individual Psychotherapy - 45 min Attender: Renaldo Murdock [facility] 01/23/2020 01:00:00 AM EST - 01/23/2020 01:00:00 AM EST [facility] ([facility]) Attender: Renaldo Murdock 01/23/2020 12:00:00 AM EST [facility] ([facility]) Attender: Renaldo Murdock 01/23/2020 12:00:00 AM EST [facility] ([facility]) Outpatient Attender: LEE ANN YEE NP [facility] Johann joel 01/16/2020 11:00:00 AM EDT - 01/16/2020 11:00:00 AM EDT [facility] ([facility]) Attender: LEE ANN YEE NP 01/16/2020 12:00:00 AM EDT [facility] ([facility]) Outpatient Attender: LEE ANN YEE NP [facility] Johann joel 01/02/2020 11:30:00 AM EDT - 01/02/2020 11:30:00 AM EDT [facility] ([facility]) Attender: LEE ANN YEE NP 01/02/2020 12:00:00 AM EDT [facility] ([facility]) Extended Individual Psychotherapy - 45 min Attender: Renaldo Murdock [facility] 12/26/2019 01:00:00 AM EDT - 12/26/2019 01:00:00 AM EDT [facility] ([facility]) Attender: Renaldo Murdock 12/26/2019 12:00:00 AM EDT [facility] ([facility]) Outpatient Attender: Pricila CARPENTER 12/21/2019 12:02:19 A M EDT [facility] Outpatient Attender: LEE ANN YEE NP [facility] Johann joel 12/20/2019 01:30:00 AM EDT - 12/20/2019 01:30:00 AM EDT [facility] ([facility]) Attender: LEE ANN YEE NP 12/20/2019 12:00:00 AM EDT [facility] ([facility]) Brief Individual Psychotherapy - 30 min Attender: [facility] 12/19/2019 12:30:00 PM EDT - 12/19/2019 12:30:00 PM EDT [facility] ([facility]) Attender: [facility] 12/19/2019 12:00:00 AM EDT [facility] ([facility]) Extended Individual Psychotherapy - 45 min Attender: [facility] 12/11/2019 02:00:00 AM EDT - 12/11/2019 02:00:00 AM EDT [facility] ([facility]) Attender: [facility] 12/11/2019 12:00:00 AM EDT [facility] ([facility]) Extended Individual Psychotherapy - 45 min Attender: [facility] 11/30/2019 11:45:00 AM EDT - 11/30/2019 11:45:00 AM EDT [facility] ([facility]) Attender: [facility] 11/30/2019 12:00:00 AM EDT [facility] ([facility]) Functional Status Medications Medication Brand Name Start Date Product Form Dose Route Admi nistrative Instructions Pharmacy Instructions Status Indications Reaction Description Data Source(s) 300 mg 11/26/2020 12:00:00 AM EDT capsule 30 TAKE ONE CAPSULE BY MOUTH EVERY DAY TAKE ONE CAPSULE BY MOUTH EVERY DAY SOLD: 12/25/2020 [facility] 10 mg 11/26/2020 12:00:00 AM EDT capsule 30 TAKE ONE CAPSULE BY MOUTH EVERY MORNING TAKE ONE CAPSULE BY MOUTH EVERY MORNING SOLD: 12/25/2020 [facility] 300 mg 11/26/2020 12:00:00 AM EDT capsule 30 TAKE ONE CAPSULE BY MOUTH EVERY DAY TAKE ONE CAPSULE BY MOUTH EVERY DAY SOLD: 11/27/2020 [facility] 10 mg 11/26/2020 12:00:00 AM EDT capsule 30 TAKE ONE CAPSULE BY MOUTH EVERY MORNING TAKE ONE CAPSULE BY MOUTH EVERY MORNING SOLD: 11/27/2020 [facility] 300 mg 11/26/2020 12:00:00 AM EDT tablet 90 TAKE 1 TABLET BY MOUTH IN THE MORNING AND 2 AT BEDTIME TAKE 1 TABLET BY MOUTH IN THE MORNING AND 2 AT BEDTIME SOLD: 11/27/2020 [facility] 300 mg 11/26/2020 12:00:00 AM EDT tablet 90 TAKE 1 TABLET BY MOUTH IN THE MORNING AND 2 AT BEDTIME TAKE 1 TABLET BY MOUTH IN THE MORNING AND 2 AT BEDTIME SOLD: 12/25/2020 [facility] 300 mg 10/31/2020 12:00:00 AM EDT capsule 30 TAKE ONE CAPSULE BY MOUTH AT BEDTIME TAKE ONE CAPSULE BY MOUTH AT BEDTIME SOLD: 10/31/2020 [facility] 10 mg 10/31/2020 12:00:00 AM EDT capsule 30 TAKE ONE CAPSULE BY MOUTH EVERY MORNING TAKE ONE CAPSULE BY MOUTH EVERY MORNING SOLD: 10/31/2020 [facility] 300 mg 10/30/2020 12:00:00 AM EDT tablet 90 TAKE ONE TABLET BY MOUTH EVERY MORNING AND TWO TABLETS BY MOUTH AT BEDTIME TAKE ONE TABLET BY MOUTH EVERY MORNING AND TWO TABLETS BY MOUTH AT BEDTIME SOLD: 10/31/2020 [facility] Hydrocortisone 25 MG/ML Topical Cream Hydrocortisone ( Perianal) 2.5 % Hydrocortisone (Perianal) 2.5 % 10/15/2020 12:00:00 AM EDT active eCW1 ([facility]) Hydrocortisone 25 MG/ML Topical Cream Hydrocortisone ( Perianal) 2.5 % Hydrocortisone (Perianal) 2.5 % 10/15/2020 12:00:00 AM EDT active Hydrocortisone (Perianal) 2.5 % eCW1 ([facility]) 2.5 % 10/15/2020 12:00:00 AM EDT cream with perineal geronimo licator 28 APPLY TO RECTUM TWO TIMES A DAY NEEDED APPLY TO RECTUM TWO TIMES A DAY NEEDED SOLD: 10/18/2020 [facility] Hydrocortisone 25 MG/ML Topical Cream Hydrocortisone ( Perianal) 2.5 % Hydrocortisone (Perianal) 2.5 % 10/15/2020 12:00:00 AM EDT active Hydrocortisone (Perianal) 2.5 % eCW1 ([facility]) Docusate Sodium 100 MG Oral Capsule [Colace] Colace 100 MG C olace 100 MG 10/15/2020 12:00:00 AM EDT 1.0 {capsule_as_needed} active Colace 100 MG eCW1 ([facility]) Docusate Sodium 100 MG Oral Capsule [Colace] Colace 100 MG C olace 100 MG 10/15/2020 12:00:00 AM EDT 1.0 {capsule_as_needed} a ctive eCW1 ([facility]) 100 mg 10/15/2020 12:00:00 AM EDT capsule 30 TAKE ONE CAPSULE BY MOUTH EVERY DAY NEEDED TAKE ONE CAPSULE BY MOUTH EVERY DAY NEEDED SOLD: 10/18/2020 [facility] Docusate Sodium 100 MG Oral Capsule [Colace] Colace 100 MG C olace 100 MG 10/15/2020 12:00:00 AM EDT 1.0 {capsule_as_needed} suspended Colace 100 MG eCW1 ([facility]) 300 mg 10/05/2020 12:00:00 AM EDT capsule 30 TAKE ONE CAPSULE BY MOUTH AT BEDTIME TAKE ONE CAPSULE BY MOUTH AT BEDTIME SOLD: 10/07/2020 [facility] 10 mg 10/05/2020 12:00:00 AM EDT capsule 30 TAKE ONE CAPSULE BY MOUTH EVERY DAY IN THE MORNING TAKE ONE CAPSULE BY MOUTH EVERY DAY IN THE MORNING ABRIL [facility] 300 mg 10/04/2020 12:00:00 AM EDT tablet 90 TAKE ONE TABLET BY MOUTH THREE TIMES A DAY - ONE TABLET BY MOUTH IN THE IN THE MORNING AND 2 TABLETS BY MOUTH AT BEDTIME TAKE ONE TABLET BY MOUTH THREE TIMES A D AY - ONE TABLET BY MOUTH IN THE IN THE MORNING AND 2 TABLETS BY MOUTH AT BEDTIME SOLD: 10/07/2020 [facility] olanzapine 2.5 MG Oral Tablet [Zyprexa] Zyprexa 09/24/2020 12: 00:00 AM EDT 2.5 mg by mouth completed <td ID="Me dicationRxNorm_3">051088</td><td ID="MedicationMedication_3">Zyprexa</td><td ID="MedicationRoute_3">by mouth</td><td ID="MedicationRouteConcept_3">E18730</td><td ID="MedicationStartDate_3">09/24/2020</td><td ID="MedicationStopDate_3">09/24/2020</td><td ID="MedicationDosageFrequency_3">at bedtime</td><td ID="MedicationDuration_3">30</td><td ID="MedicationFormulaStrength_3">2.5 mg</td><td ID="MedicationDosageForm_3">tablet</td><td ID="MedicationDosageFormCode_3"></td><td ID="MedicationDosageDescription_3"></td><td ID="MedicationMedicationId_3">[id number]</td><td ID="MedicationAccount_3">[id number]</td><td ID="MedicationNpid_3">[id number]</td><td ID="MedicationAuthorFirstName_3">Lee Ann</td><td ID="MedicationAuthorLastName_3">Tom</td><td ID="MedicationTaxonomyCode_3">[id number]</td><td ID="MedicationTaxonomyDesc_3">Nurse Practitioner</td><td ID="MedicationPhoneNumber_3">[phone]</td> [facility] ([facility]) oxcarbazepine 300 MG Oral Tablet [Trileptal] Trileptal 09/24/2020 12:00:00 AM EDT 300 mg by mouth completed <td ID="MedicationRxNorm_6">264615</td><td ID="MedicationMedication_6">Trileptal</td><td ID="MedicationRoute_6">by mouth</td><td ID="MedicationRouteConcept_6">M97913</td><td ID="MedicationStartDate_6">09/24/2020</td><td ID="MedicationStopDate_6">10/24/2020</td><td ID="MedicationDosageFrequency_6">three times a day</td><td ID="MedicationDuration_6">30</td><td ID="MedicationFormulaStrength_6">300 mg</td><td ID="MedicationDosageForm_6">tablet</td><td ID="MedicationDosageFormCode_6"></td><td ID="MedicationDosageDescription_6">as directed</td><td ID="MedicationMedicationId_6">[id number]</td><td ID="MedicationAccount_6">[id number]</td><td ID="MedicationNpid_6">[id number]</td><td ID="MedicationAuthorFirstName_6">Lee Ann</td><td ID="MedicationAuthorLastName_6">Tom</td><td ID="MedicationTaxonomyCode_6">[id number]</td><td ID="MedicationTaxonomyDesc_6">Nurse Practitioner</td><td ID="MedicationPhoneNumber_6">[phone]</td> [facility] ([facility]) 300 mg 09/17/2020 12:00:00 AM EDT tablet 60 TAKE ONE TABLET BY MOUTH TWICE A DAY TAKE ONE TABLET BY MOUTH TWICE A DAY SOLD: 09/19/2020 [facility] 0.5 mg 09/09/2020 12:00:00 AM EDT tablet 30 TAKE ONE TABLET BY MOUTH EVERY DAY AT BEDTIME TAKE ONE TABLET BY MOUTH EVERY DAY AT BEDTIME SOLD: 09/10/2020 [facility] 10 mg 09/09/2020 12:00:00 AM EDT capsule 30 TAKE ONE CAPSULE BY MOUTH EVERY MORNING TAKE ONE CAPSULE BY MOUTH EVERY MORNING SOLD: 09/10/2020 [facility] 300 mg 09/09/2020 12:00:00 AM EDT capsule 30 TAKE ONE CAPSULE BY MOUTH EVERY DAY AT BEDTIME TAKE ONE CAPSULE BY MOUTH EVERY DAY AT BEDTIME SOLD: [facility] Risperidone 0.5 MG Oral Tablet risperidone 08/26/2020 12:00:00 AM EDT 0.5 mg by mouth completed <td ID="Medica tionRxNorm_5">680771</td><td ID="MedicationMedication_5">risperidone</td><td ID="MedicationRoute_5">by mouth</td><td ID="MedicationRouteConcept_5">[id number]</td><td ID="MedicationStartDate_5">08/26/2020</td><td ID="MedicationStopDate_5">09/25/2020</td><td ID="MedicationDosageFrequency_5">at bedtime</td><td ID="MedicationDuration_5">30</td><td ID="MedicationFormulaStrength_5">0.5 mg</td><td ID="MedicationDosageForm_5">tablet</td><td ID="MedicationDosageFormCode_5"></td><td ID="MedicationDosageDescription_5"></td><td ID="MedicationMedicationId_5">[id number]</td><td ID="MedicationAccount_5">[id number]</td><td ID="MedicationNpid_5">[id number]</td><td ID="MedicationAuthorFirstName_5">Lee Ann</td><td ID="MedicationAuthorLastName_5">Tom</td><td ID="MedicationTaxonomyCode_5">[id number]</td><td ID="MedicationTaxonomyDesc_5">Nurse Practitioner</td><td ID="MedicationPhoneNumber_5">[phone]</td> [facility] ([facility]) Risperidone 0.5 MG Oral Tablet risperidone 08/26/2020 12:00:00 AM EDT 0.5 mg by mouth completed <td ID="Medica tionRxNorm_2">727967</td><td ID="MedicationMedication_2">risperidone</td><td ID="MedicationRoute_2">by mouth</td><td ID="MedicationRouteConcept_2">M04314</td><td ID="MedicationStartDate_2">08/26/2020</td><td ID="MedicationStopDate_2">09/24/2020</td><td ID="MedicationDosageFrequency_2">at bedtime</td><td ID="MedicationDuration_2">30</td><td ID="MedicationFormulaStrength_2">0.5 mg</td><td ID="MedicationDosageForm_2">tablet</td><td ID="MedicationDosageFormCode_2"></td><td ID="MedicationDosageDescription_2"></td><td ID="MedicationMedicationId_2">[id number]</td><td ID="MedicationAccount_2">[id number]</td><td ID="MedicationNpid_2">[id number]</td><td ID="MedicationAuthorFirstName_2">Lee Ann</td><td ID="MedicationAuthorLastName_2">Tom</td><td ID="MedicationTaxonomyCode_2">[id number]</td><td ID="MedicationTaxonomyDesc_2">Nurse Practitioner</td><td ID="MedicationPhoneNumber_2">[phone]</td> [facility] ([facility] 300 mg 08/22/2020 12:00:00 AM EDT tablet 60 TAKE ONE TABLET BY MOUTH TWICE A DAY TAKE ONE TABLET BY MOUTH TWICE A DAY SOLD: 08/22/2020 [facility] 10 mg 08/16/2020 12:00:00 AM EDT capsule 30 TAKE ONE CAPSULE BY MOUTH EVERY MORNING TAKE ONE CAPSULE BY MOUTH EVERY MORNING SOLD: 08/16/2020 [facility] 0.5 mg 08/16/2020 12:00:00 AM EDT tablet 30 TAKE ONE TABLET BY MOUTH EVERY DAY NEEDED TAKE ONE TABLET BY MOUTH EVERY DAY NEEDED SOLD: 08/16/2020 [facility] 300 mg 08/16/2020 12:00:00 AM EDT capsule 30 TAKE ONE CAPSULE BY MOUTH AT BEDTIME TAKE ONE CAPSULE BY MOUTH AT BEDTIME SOLD: 08/16/2020 [facility] Risperidone 0.5 MG Oral Tablet risperidone 08/14/2020 12:00:00 AM EDT 0.5 mg by mouth completed <td ID="Medica tionRxNorm_2">667841</td><td ID="MedicationMedication_2">risperidone</td><td ID="MedicationRoute_2">by mouth</td><td ID="MedicationRouteConcept_2">O41999</td><td ID="MedicationStartDate_2">08/14/2020</td><td ID="MedicationStopDate_2"></td><td ID="MedicationDosageFrequency_2">once a day</td><td ID="MedicationDuration_2">30</td><td ID="MedicationFormulaStrength_2">0.5 mg</td><td ID="MedicationDosageForm_2">tablet</td><td ID="MedicationDosageFormCode_2"></td><td ID="MedicationDosageDescription_2">as needed</td><td ID="MedicationMedicationId_2">[id number]</td><td ID="MedicationAccount_2">[id number]</td><td ID="MedicationNpid_2">[id number]</td><td ID="MedicationAuthorFirstName_2">Lee Ann</td><td ID="MedicationAuthorLastName_2">Tom</td><td ID="MedicationTaxonomyCode_2">[id number]</td><td ID="MedicationTaxonomyDesc_2">Nurse Practitioner</td><td ID="MedicationPhoneNumber_2">[phone]</td> [facility] ([facility]) Risperidone 0.5 MG Oral Tablet risperidone 08/14/2020 12:00:00 AM EDT 0.5 mg by mouth completed <td ID="Medica tionRxNorm_1">445304</td><td ID="MedicationMedication_1">risperidone</td><td ID="MedicationRoute_1">by mouth</td><td ID="MedicationRouteConcept_1">[id number]</td><td ID="MedicationStartDate_1">08/14/2020</td><td ID="MedicationStopDate_1">08/26/2020</td><td ID="MedicationDosageFrequency_1">once a day</td><td ID="MedicationDuration_1">30</td><td ID="MedicationFormulaStrength_1">0.5 mg</td><td ID="MedicationDosageForm_1">tablet</td><td ID="MedicationDosageFormCode_1"></td><td ID="MedicationDosageDescription_1">as needed</td><td ID="MedicationMedicationId_1">[id number]</td><td ID="MedicationAccount_1">[id number]</td><td ID="MedicationNpid_1">[id number]</td><td ID="MedicationAuthorFirstName_1">Lee Ann</td><td ID="MedicationAuthorLastName_1">Tom</td><td ID="MedicationTaxonomyCode_1">[id number]</td><td ID="MedicationTaxonomyDesc_1">Nurse Practitioner</td><td ID="MedicationPhoneNumber_1">[phone]</td> [facility] ([facility] 300 mg 06/28/2020 12:00:00 AM EDT tablet 60 TAKE ONE TABLET BY MOUTH TWICE A DAY TAKE ONE TABLET BY MOUTH TWICE A DAY SOLD: 06/30/2020 [facility] 300 mg 06/28/2020 12:00:00 AM EDT tablet 60 TAKE ONE TABLET BY MOUTH TWICE A DAY TAKE ONE TABLET BY MOUTH TWICE A DAY SOLD: 07/27/2020 [facility] 300 mg 06/20/2020 12:00:00 AM EDT capsule 30 TAKE ONE CAPSULE BY MOUTH AT BEDTIME TAKE ONE CAPSULE BY MOUTH AT BEDTIME SOLD: 06/20/2020 [facility] 0.5 mg 06/20/2020 12:00:00 AM EDT tablet 30 TAKE ONE TABLET BY MOUTH EVERY DAY NEEDED TAKE ONE TABLET BY MOUTH EVERY DAY NEEDED SOLD: 06/20/2020 [facility] gabapentin 300 MG Oral Capsule gabapentin 06/17/2020 12:00:00 AM EDT 300 mg by mouth completed <td ID="Medica tionRxNorm_4">088645</td><td ID="MedicationMedication_4">gabapentin</td><td ID="MedicationRoute_4">by mouth</td><td ID="MedicationRouteConcept_4">Z70621</td><td ID="MedicationStartDate_4">06/17/2020</td><td ID="MedicationStopDate_4">09/25/2020</td><td ID="MedicationDosageFrequency_4">at bedtime</td><td ID="MedicationDuration_4">30</td><td ID="MedicationFormulaStrength_4">300 mg</td><td ID="MedicationDosageForm_4">capsule</td><td ID="MedicationDosageFormCode_4"></td><td ID="MedicationDosageDescription_4"></td><td ID="MedicationMedicationId_4">[id number]</td><td ID="MedicationAccount_4">[id number]</td><td ID="MedicationNpid_4">[id number]</td><td ID="MedicationAuthorFirstName_4">Lee Ann</td><td ID="MedicationAuthorLastName_4">Tom</td><td ID="MedicationTaxonomyCode_4">[id number]</td><td ID="MedicationTaxonomyDesc_4">Nurse Practitioner</td><td ID="MedicationPhoneNumber_4">[phone]</td> [facility] ([facility]) gabapentin 300 MG Oral Capsule gabapentin 06/17/2020 12:00:00 AM EDT 300 mg by mouth completed <td ID="Medica tionRxNorm_5">745814</td><td ID="MedicationMedication_5">gabapentin</td><td ID="MedicationRoute_5">by mouth</td><td ID="MedicationRouteConcept_5">J34828</td><td ID="MedicationStartDate_5">06/17/2020</td><td ID="MedicationStopDate_5">09/25/2020</td><td ID="MedicationDosageFrequency_5">at bedtime</td><td ID="MedicationDuration_5">30</td><td ID="MedicationFormulaStrength_5">300 mg</td><td ID="MedicationDosageForm_5">capsule</td><td ID="MedicationDosageFormCode_5"></td><td ID="MedicationDosageDescription_5"></td><td ID="MedicationMedicationId_5">[id number]</td><td ID="MedicationAccount_5">[id number]</td><td ID="MedicationNpid_5">[id number]</td><td ID="MedicationAuthorFirstName_5">Lee Ann</td><td ID="MedicationAuthorLastName_5">Tom</td><td ID="MedicationTaxonomyCode_5">[id number]</td><td ID="MedicationTaxonomyDesc_5">Nurse Practitioner</td><td ID="MedicationPhoneNumber_5">[phone]</td> [facility] ([facility]) gabapentin 300 MG Oral Capsule gabapentin 06/17/2020 12:00:00 AM EDT 300 mg by mouth completed <td ID="Medica tionRxNorm_1">009818</td><td ID="MedicationMedication_1">gabapentin</td><td ID="MedicationRoute_1">by mouth</td><td ID="MedicationRouteConcept_1">O42341</td><td ID="MedicationStartDate_1">06/17/2020</td><td ID="MedicationStopDate_1"></td><td ID="MedicationDosageFrequency_1">at bedtime</td><td ID="MedicationDuration_1">30</td><td ID="MedicationFormulaStrength_1">300 mg</td><td ID="MedicationDosageForm_1">capsule</td><td ID="MedicationDosageFormCode_1"></td><td ID="MedicationDosageDescription_1"></td><td ID="MedicationMedicationId_1">[id number]</td><td ID="MedicationAccount_1">[id number]</td><td ID="MedicationNpid_1">[id number]</td><td ID="MedicationAuthorFirstName_1">Lee Ann</td><td ID="MedicationAuthorLastName_1">Tom</td><td ID="MedicationTaxonomyCode_1">[id number]</td><td ID="MedicationTaxonomyDesc_1">Nurse Practitioner</td><td ID="MedicationPhoneNumber_1">[phone]</td> [facility] ([facility]) 10 mg 05/08/2020 12:00:00 AM EST capsule 30 TAKE ONE CAPSULE BY MOUTH EVERY DAY IN THE MORNING TAKE ONE CAPSULE BY MOUTH EVERY DAY IN THE MORNING [facility] 10 mg 05/08/2020 12:00:00 AM EST capsule 30 TAKE ONE CAPSULE BY MOUTH EVERY DAY IN THE MORNING TAKE ONE CAPSULE BY MOUTH EVERY DAY IN THE MORNING [facility] 300 mg 05/08/2020 12:00:00 AM EST tablet 60 TAKE ONE TABLET BY MOUTH TWICE A DAY TAKE ONE TABLET BY MOUTH TWICE A DAY SOLD: 06/04/2020 [facility] 300 mg 05/08/2020 12:00:00 AM EST tablet 60 TAKE ONE TABLET BY MOUTH TWICE A DAY TAKE ONE TABLET BY MOUTH TWICE A DAY SOLD: 05/08/2020 [facility] quetiapine 50 MG Oral Tablet QUETIAPINE FUMARATE 04/09/2020 12:0 0:00 AM EST tablet 30 TAKE ONE TABLET BY MOUTH AT BEDT JOSE MARTIN NEEDED TAKE ONE TABLET BY MOUTH AT BEDTIME NEEDED SOLD: 05/22/2020 [facility] 300 mg 04/09/2020 12:00:00 AM EST capsule 30 TAKE ONE CAPSULE BY MOUTH EVERY DAY AT BEDTIME TAKE ONE CAPSULE BY MOUTH EVERY DAY AT BEDTIME SOLD: 021 [facility] 10 mg 04/09/2020 12:00:00 AM EST capsule 30 TAKE ONE CAPSULE BY MOUTH EVERY DAY IN THE MORNING TAKE ONE CAPSULE BY MOUTH EVERY DAY IN THE MORNING [facility] 300 mg 04/09/2020 12:00:00 AM EST capsule 30 TAKE ONE CAPSULE BY MOUTH EVERY DAY AT BEDTIME TAKE ONE CAPSULE BY MOUTH EVERY DAY AT BEDTIME SOLD: 021 [facility] 10 mg 04/09/2020 12:00:00 AM EST capsule 30 TAKE ONE CAPSULE BY MOUTH EVERY DAY IN THE MORNING TAKE ONE CAPSULE BY MOUTH EVERY DAY IN THE MORNING [facility] quetiapine 50 MG Oral Tablet QUETIAPINE FUMARATE 04/09/2020 12:0 0:00 AM EST tablet 30 TAKE ONE TABLET BY MOUTH AT BEDT JOSE MARTIN NEEDED TAKE ONE TABLET BY MOUTH AT BEDTIME NEEDED SOLD: 04/09/2020 [facility] quetiapine 50 MG Oral Tablet [Seroquel] Seroquel 04/09/2020 12: 00:00 AM EST 50 mg by mouth completed <td ID="Me dicationRxNorm_2">445059</td><td ID="MedicationMedication_2">Seroquel</td><td ID="MedicationRoute_2">by mouth</td><td ID="MedicationRouteConcept_2">J14280</td><td ID="MedicationStartDate_2">04/09/2020</td><td ID="MedicationStopDate_2">06/08/2020</td><td ID="MedicationDosageFrequency_2">at bedtime</td><td ID="MedicationDuration_2">30</td><td ID="MedicationFormulaStrength_2">50 mg</td><td ID="MedicationDosageForm_2">tablet</td><td ID="MedicationDosageFormCode_2"></td><td ID="MedicationDosageDescription_2">as needed</td><td ID="MedicationMedicationId_2">[id number]</td><td ID="MedicationAccount_2">[id number]</td><td ID="MedicationNpid_2">[id number]</td><td ID="MedicationAuthorFirstName_2">Lee Ann</td><td ID="MedicationAuthorLastName_2">Tom</td><td ID="MedicationTaxonomyCode_2">[id number]</td><td ID="MedicationTaxonomyDesc_2">Nurse Practitioner</td><td ID="MedicationPhoneNumber_2">[phone]</td> [facility] ([facility]) 300 mg 04/09/2020 12:00:00 AM EST tablet 60 TAKE ONE TABLET BY MOUTH TWICE A DAY TAKE ONE TABLET BY MOUTH TWICE A DAY SOLD: 04/09/2020 [facility] quetiapine 50 MG Oral Tablet [Seroquel] Seroquel 04/09/2020 12: 00:00 AM EST 50 mg by mouth completed <td ID="Me dicationRxNorm_4">395750</td><td ID="MedicationMedication_4">Seroquel</td><td ID="MedicationRoute_4">by mouth</td><td ID="MedicationRouteConcept_4">H97375</td><td ID="MedicationStartDate_4">04/09/2020</td><td ID="MedicationStopDate_4">06/08/2020</td><td ID="MedicationDosageFrequency_4">at bedtime</td><td ID="MedicationDuration_4">30</td><td ID="MedicationFormulaStrength_4">50 mg</td><td ID="MedicationDosageForm_4">tablet</td><td ID="MedicationDosageFormCode_4"></td><td ID="MedicationDosageDescription_4">as needed</td><td ID="MedicationMedicationId_4">[id number]</td><td ID="MedicationAccount_4">[id number]</td><td ID="MedicationNpid_4">[id number]</td><td ID="MedicationAuthorFirstName_4">Lee Ann</td><td ID="MedicationAuthorLastName_4">Tom</td><td ID="MedicationTaxonomyCode_4">[id number]</td><td ID="MedicationTaxonomyDesc_4">Nurse Practitioner</td><td ID="MedicationPhoneNumber_4">[phone]</td> [facility] ([facility]) 10 mg 03/12/2020 12:00:00 AM EST capsule 30 TAKE ONE CAPSULE BY MOUTH EVERY MORNING TAKE ONE CAPSULE BY MOUTH EVERY MORNING SOLD: 03/12/2020 [facility] quetiapine 50 MG Oral Tablet QUETIAPINE FUMARATE 03/12/2020 12:0 0:00 AM EST tablet 30 TAKE ONE TABLET BY MOUTH AT BEDT JOSE MARTIN TAKE ONE TABLET BY MOUTH AT BEDTIME SOLD: 03/12/2020 [facility] quetiapine 50 MG Oral Tablet QUETIAPINE FUMARATE 03/12/2020 12:0 0:00 AM EST tablet 30 TAKE ONE TABLET BY MOUTH AT BEDT JOSE MARTIN TAKE ONE TABLET BY MOUTH AT BEDTIME SOLD: 06/20/2020 [facility] 300 mg 03/12/2020 12:00:00 AM EST tablet 60 TAKE ONE TABLET BY MOUTH TWICE A DAY TAKE ONE TABLET BY MOUTH TWICE A DAY SOLD: 03/12/2020 [facility] 300 mg 03/05/2020 12:00:00 AM EST capsule 30 TAKE ONE CAPSULE BY MOUTH AT BEDTIME TAKE ONE CAPSULE BY MOUTH AT BEDTIME SOLD: 03/07/2020 [facility] 300 mg 02/14/2020 12:00:00 AM EST tablet 60 TAKE ONE TABLET BY MOUTH TWICE A DAY TAKE ONE TABLET BY MOUTH TWICE A DAY SOLD: 02/14/2020 [facility] quetiapine 50 MG Oral Tablet QUETIAPINE FUMARATE 02/14/2020 12:0 0:00 AM EST tablet 30 TAKE ONE TABLET BY MOUTH AT BEDT JOSE MARTIN TAKE ONE TABLET BY MOUTH AT BEDTIME SOLD: 02/14/2020 [facility] 10 mg 02/14/2020 12:00:00 AM EST capsule 30 TAKE ONE CAPSULE BY MOUTH EVERY MORNING TAKE ONE CAPSULE BY MOUTH EVERY MORNING SOLD: 02/14/2020 [facility] oxcarbazepine 300 MG Oral Tablet [Trileptal] Trileptal 02/13/2020 12:00:00 AM EST 300 mg by mouth completed <td ID="MedicationRxNorm_3">293662</td><td ID="MedicationMedication_3">Trileptal</td><td ID="MedicationRoute_3">by mouth</td><td ID="MedicationRouteConcept_3">H18559</td><td ID="MedicationStartDate_3">02/13/2020</td><td ID="MedicationStopDate_3">09/25/2020</td><td ID="MedicationDosageFrequency_3">twice a day</td><td ID="MedicationDuration_3">30</td><td ID="MedicationFormulaStrength_3">300 mg</td><td ID="MedicationDosageForm_3">tablet</td><td ID="MedicationDosageFormCode_3"></td><td ID="MedicationDosageDescription_3"></td><td ID="MedicationMedicationId_3">[id number]</td><td ID="MedicationAccount_3">[id number]</td><td ID="MedicationNpid_3">[id number]</td><td ID="MedicationAuthorFirstName_3">Lee Ann</td><td ID="MedicationAuthorLastName_3">Tom</td><td ID="MedicationTaxonomyCode_3">[id number]</td><td ID="MedicationTaxonomyDesc_3">Nurse Practitioner</td><td ID="MedicationPhoneNumber_3">[phone]</td> [facility] ([facility]) oxcarbazepine 300 MG Oral Tablet [Trileptal] Trileptal 02/13/2020 12:00:00 AM EST 300 mg by mouth completed <td ID="MedicationRxNorm_4">699152</td><td ID="MedicationMedication_4">Trileptal</td><td ID="MedicationRoute_4">by mouth</td><td ID="MedicationRouteConcept_4">Z81088</td><td ID="MedicationStartDate_4">02/13/2020</td><td ID="MedicationStopDate_4">08/18/2020</td><td ID="MedicationDosageFrequency_4">twice a day</td><td ID="MedicationDuration_4">30</td><td ID="MedicationFormulaStrength_4">300 mg</td><td ID="MedicationDosageForm_4">tablet</td><td ID="MedicationDosageFormCode_4"></td><td ID="MedicationDosageDescription_4"></td><td ID="MedicationMedicationId_4">[id number]</td><td ID="MedicationAccount_4">[id number]</td><td ID="MedicationNpid_4">[id number]</td><td ID="MedicationAuthorFirstName_4">Lee Ann</td><td ID="MedicationAuthorLastName_4">Tom</td><td ID="MedicationTaxonomyCode_4">[id number]</td><td ID="MedicationTaxonomyDesc_4">Nurse Practitioner</td><td ID="MedicationPhoneNumber_4">[phone]</td> [facility] ([facility]) gabapentin 300 MG Oral Capsule gabapentin 02/13/2020 12:00:00 AM EST 300 mg by mouth completed <td ID="Medica tionRxNorm_2">436811</td><td ID="MedicationMedication_2">gabapentin</td><td ID="MedicationRoute_2">by mouth</td><td ID="MedicationRouteConcept_2">M52679</td><td ID="MedicationStartDate_2">02/13/2020</td><td ID="MedicationStopDate_2">06/08/2020</td><td ID="MedicationDosageFrequency_2">at bedtime</td><td ID="MedicationDuration_2">30</td><td ID="MedicationFormulaStrength_2">300 mg</td><td ID="MedicationDosageForm_2">capsule</td><td ID="MedicationDosageFormCode_2"></td><td ID="MedicationDosageDescription_2"></td><td ID="MedicationMedicationId_2">[id number]</td><td ID="MedicationAccount_2">[id number]</td><td ID="MedicationNpid_2">[id number]</td><td ID="MedicationAuthorFirstName_2">Lee Ann</td><td ID="MedicationAuthorLastName_2">Tom</td><td ID="MedicationTaxonomyCode_2">[id number]</td><td ID="MedicationTaxonomyDesc_2">Nurse Practitioner</td><td ID="MedicationPhoneNumber_2">[phone]</td> [facility] ([facility]) gabapentin 300 MG Oral Capsule gabapentin 02/13/2020 12:00:00 AM EST 300 mg by mouth completed <td ID="Medica tionRxNorm_3">508123</td><td ID="MedicationMedication_3">gabapentin</td><td ID="MedicationRoute_3">by mouth</td><td ID="MedicationRouteConcept_3">I35282</td><td ID="MedicationStartDate_3">02/13/2020</td><td ID="MedicationStopDate_3">05/11/2020</td><td ID="MedicationDosageFrequency_3">at bedtime</td><td ID="MedicationDuration_3">30</td><td ID="MedicationFormulaStrength_3">300 mg</td><td ID="MedicationDosageForm_3">capsule</td><td ID="MedicationDosageFormCode_3"></td><td ID="MedicationDosageDescription_3"></td><td ID="MedicationMedicationId_3">[id number]</td><td ID="MedicationAccount_3">[id number]</td><td ID="MedicationNpid_3">[id number]</td><td ID="MedicationAuthorFirstName_3">Lee Ann</td><td ID="MedicationAuthorLastName_3">Tom</td><td ID="MedicationTaxonomyCode_3">[id number]</td><td ID="MedicationTaxonomyDesc_3">Nurse Practitioner</td><td ID="MedicationPhoneNumber_3">[phone]</td> [facility] ([facility]) oxcarbazepine 300 MG Oral Tablet [Trileptal] Trileptal 02/13/2020 12:00:00 AM EST 300 mg by mouth completed <td ID="MedicationRxNorm_6">432502</td><td ID="MedicationMedication_6">Trileptal</td><td ID="MedicationRoute_6">by mouth</td><td ID="MedicationRouteConcept_6">A78226</td><td ID="MedicationStartDate_6">02/13/2020</td><td ID="MedicationStopDate_6">03/14/2020</td><td ID="MedicationDosageFrequency_6">twice a day</td><td ID="MedicationDuration_6">30</td><td ID="MedicationFormulaStrength_6">300 mg</td><td ID="MedicationDosageForm_6">tablet</td><td ID="MedicationDosageFormCode_6"></td><td ID="MedicationDosageDescription_6"></td><td ID="MedicationMedicationId_6">[id number]</td><td ID="MedicationAccount_6">[id number]</td><td ID="MedicationNpid_6">[id number]</td><td ID="MedicationAuthorFirstName_6">Lee Ann</td><td ID="MedicationAuthorLastName_6">Tom</td><td ID="MedicationTaxonomyCode_6">[id number]</td><td ID="MedicationTaxonomyDesc_6">Nurse Practitioner</td><td ID="MedicationPhoneNumber_6">[phone]</td> [facility] ([facility]) Fluoxetine fluoxetine 02/13/2020 12:00:00 AM EST 10 mg by mouth completed <td ID="MedicationRxNorm_3"> 6469045</td><td ID="MedicationMedication_3">fluoxetine</td><td ID="MedicationRoute_3">by mouth</td><td ID="MedicationRouteConcept_3">U83787</td><td ID="MedicationStartDate_3">02/13/2020</td><td ID="MedicationStopDate_3">08/18/2020</td><td ID="MedicationDosageFrequency_3">every morning</td><td ID="MedicationDuration_3">30</td><td ID="MedicationFormulaStrength_3">10 mg</td><td ID="MedicationDosageForm_3">tablet</td><td ID="MedicationDosageFormCode_3"></td><td ID="MedicationDosageDescription_3"> </td><td ID="MedicationMedicationId_3">[id number]</td><td ID="MedicationAccount_3">[id number]</td><td ID="MedicationNpid_3">[id number]</td><td ID="MedicationAuthorFirstName_3">Lee Ann</td><td ID="MedicationAuthorLastName_3">Tom</td><td ID="MedicationTaxonomyCode_3">[id number]</td><td ID="MedicationTaxonomyDesc_3">Nurse Practitioner</td><td ID="MedicationPhoneNumber_3">[phone]</td> [facility] ([facility]) Fluoxetine fluoxetine 02/13/2020 12:00:00 AM EST 10 mg by mouth completed <td ID="MedicationRxNorm_4"> 1092537</td><td ID="MedicationMedication_4">fluoxetine</td><td ID="MedicationRoute_4">by mouth</td><td ID="MedicationRouteConcept_4">J12761</td><td ID="MedicationStartDate_4">02/13/2020</td><td ID="MedicationStopDate_4">09/25/2020</td><td ID="MedicationDosageFrequency_4">every morning</td><td ID="MedicationDuration_4">30</td><td ID="MedicationFormulaStrength_4">10 mg</td><td ID="MedicationDosageForm_4">tablet</td><td ID="MedicationDosageFormCode_4"></td><td ID="MedicationDosageDescription_4"> </td><td ID="MedicationMedicationId_4">[id number]</td><td ID="MedicationAccount_4">[id number]</td><td ID="MedicationNpid_4">[id number]</td><td ID="MedicationAuthorFirstName_4">Lee Ann</td><td ID="MedicationAuthorLastName_4">Tom</td><td ID="MedicationTaxonomyCode_4">[id number]</td><td ID="MedicationTaxonomyDesc_4">Nurse Practitioner</td><td ID="MedicationPhoneNumber_4">[phone]</td> [facility] ([facility]) Fluoxetine fluoxetine 02/13/2020 12:00:00 AM EST 10 mg by mouth completed <td ID="MedicationRxNorm_2"> 9093566</td><td ID="MedicationMedication_2">fluoxetine</td><td ID="MedicationRoute_2">by mouth</td><td ID="MedicationRouteConcept_2">Q85451</td><td ID="MedicationStartDate_2">02/13/2020</td><td ID="MedicationStopDate_2">09/25/2020</td><td ID="MedicationDosageFrequency_2">every morning</td><td ID="MedicationDuration_2">30</td><td ID="MedicationFormulaStrength_2">10 mg</td><td ID="MedicationDosageForm_2">tablet</td><td ID="MedicationDosageFormCode_2"></td><td ID="MedicationDosageDescription_2"> </td><td ID="MedicationMedicationId_2">[id number]</td><td ID="MedicationAccount_2">[id number]</td><td ID="MedicationNpid_2">[id number]</td><td ID="MedicationAuthorFirstName_2">Lee Ann</td><td ID="MedicationAuthorLastName_2">Tom</td><td ID="MedicationTaxonomyCode_2">[id number]</td><td ID="MedicationTaxonomyDesc_2">Nurse Practitioner</td><td ID="MedicationPhoneNumber_2">[phone]</td> [facility] ([facility]) oxcarbazepine 300 MG Oral Tablet [Trileptal] Trileptal 02/13/2020 12:00:00 AM EST 300 mg by mouth completed <td ID="MedicationRxNorm_1">132469</td><td ID="MedicationMedication_1">Trileptal</td><td ID="MedicationRoute_1">by mouth</td><td ID="MedicationRouteConcept_1">A26593</td><td ID="MedicationStartDate_1">02/13/2020</td><td ID="MedicationStopDate_1">09/24/2020</td><td ID="MedicationDosageFrequency_1">twice a day</td><td ID="MedicationDuration_1">30</td><td ID="MedicationFormulaStrength_1">300 mg</td><td ID="MedicationDosageForm_1">tablet</td><td ID="MedicationDosageFormCode_1"></td><td ID="MedicationDosageDescription_1"></td><td ID="MedicationMedicationId_1">[id number]</td><td ID="MedicationAccount_1">[id number]</td><td ID="MedicationNpid_1">[id number]</td><td ID="MedicationAuthorFirstName_1">Lee Ann</td><td ID="MedicationAuthorLastName_1">Tom</td><td ID="MedicationTaxonomyCode_1">[id number]</td><td ID="MedicationTaxonomyDesc_1">Nurse Practitioner</td><td ID="MedicationPhoneNumber_1">[phone]</td> [facility] ([facility]) Fluoxetine 10 MG Oral Tablet fluoxetine 02/13/2020 12:00:00 AM EST 10 mg by mouth completed <td ID="Medica tionRxNorm_5">586440</td><td ID="MedicationMedication_5">fluoxetine</td><td ID="MedicationRoute_5">by mouth</td><td ID="MedicationRouteConcept_5">E92784</td><td ID="MedicationStartDate_5">02/13/2020</td><td ID="MedicationStopDate_5">03/14/2020</td><td ID="MedicationDosageFrequency_5">every morning</td><td ID="MedicationDuration_5">30</td><td ID="MedicationFormulaStrength_5">10 mg</td><td ID="MedicationDosageForm_5">tablet</td><td ID="MedicationDosageFormCode_5"></td><td ID="MedicationDosageDescription_5"> </td><td ID="MedicationMedicationId_5">[id number]</td><td ID="MedicationAccount_5">[id number]</td><td ID="MedicationNpid_5">[id number]</td><td ID="MedicationAuthorFirstName_5">Lee Ann</td><td ID="MedicationAuthorLastName_5">Tom</td><td ID="MedicationTaxonomyCode_5">[id number]</td><td ID="MedicationTaxonomyDesc_5">Nurse Practitioner</td><td ID="MedicationPhoneNumber_5">[phone]</td> [facility] ([facility]) 300 mg 02/08/2020 12:00:00 AM EST capsule 30 TAKE ONE CAPSULE BY MOUTH EVERY DAY AT BEDTIME TAKE ONE CAPSULE BY MOUTH EVERY DAY AT BEDTIME SOLD: 020 [facility] 100 mg 02/06/2020 12:00:00 AM EST capsule 60 TAKE ONE CAPSULE BY MOUTH TWICE A DAY DIRECTED TAKE ONE CAPSULE BY MOUTH TWICE A DAY DIRECTED SOLD : 02/09/2020 [facility] gabapentin 100 MG Oral Capsule gabapentin 02/05/2020 12:00:00 AM EST 100 mg by mouth completed <td ID="Medica tionRxNorm_3">576775</td><td ID="MedicationMedication_3">gabapentin</td><td ID="MedicationRoute_3">by mouth</td><td ID="MedicationRouteConcept_3">T39537</td><td ID="MedicationStartDate_3">02/05/2020</td><td ID="MedicationStopDate_3">02/13/2020</td><td ID="MedicationDosageFrequency_3">twice a day</td><td ID="MedicationDuration_3"></td><td ID="MedicationFormulaStrength_3">100 mg</td><td ID="MedicationDosageForm_3">capsule</td><td ID="MedicationDosageFormCode_3"></td><td ID="MedicationDosageDescription_3">as directed</td><td ID="MedicationMedicationId_3">[id number]</td><td ID="MedicationAccount_3">[id number]</td><td ID="MedicationNpid_3">[id number]</td><td ID="MedicationAuthorFirstName_3">Tessie</td><td ID="MedicationAuthorLastName_3">[place]</td><td ID="MedicationTaxonomyCode_3">[id number]</td><td ID="MedicationTaxonomyDesc_3">Psychiatric/Mental Health</td><td ID="MedicationPhoneNumber_3">[phone]</td> [facility] ([facility]) 10 mg 02/03/2020 12:00:00 AM EST tablet 30 TAKE ONE TABLET BY MOUTH EVERY DAY TAKE ONE TABLET BY MOUTH EVERY DAY SOLD: 02/05/2020 [facility] quetiapine 50 MG Oral Tablet QUETIAPINE FUMARATE 01/17/2020 12:0 0:00 AM EDT tablet 30 TAKE ONE TABLET BY MOUTH EVERY D AY AT BEDTIME TAKE ONE TABLET BY MOUTH EVERY DAY AT BEDTIME SOLD: 01/21/2020 [facility] quetiapine 50 MG Oral Tablet [Seroquel] Seroquel 01/16/2020 12: 00:00 AM EDT 50 mg by mouth completed <td ID="Me dicationRxNorm_7">927603</td><td ID="MedicationMedication_7">Seroquel</td><td ID="MedicationRoute_7">by mouth</td><td ID="MedicationRouteConcept_7">T05373</td><td ID="MedicationStartDate_7">01/16/2020</td><td ID="MedicationStopDate_7">04/13/2020</td><td ID="MedicationDosageFrequency_7">at bedtime</td><td ID="MedicationDuration_7">30</td><td ID="MedicationFormulaStrength_7">50 mg</td><td ID="MedicationDosageForm_7">tablet</td><td ID="MedicationDosageFormCode_7"></td><td ID="MedicationDosageDescription_7"></td><td ID="MedicationMedicationId_7">45063</td><td ID="MedicationAccount_7">[id number]</td><td ID="MedicationNpid_7">[id number]</td><td ID="MedicationAuthorFirstName_7">Lee Ann</td><td ID="MedicationAuthorLastName_7">Tom</td><td ID="MedicationTaxonomyCode_7">[id number]</td><td ID="MedicationTaxonomyDesc_7">Nurse Practitioner</td><td ID="MedicationPhoneNumber_7">[phone]</td> [facility] ([facility]) quetiapine 50 MG Oral Tablet [Seroquel] Seroquel 01/16/2020 12: 00:00 AM EDT 50 mg by mouth completed <td ID="Me dicationRxNorm_5">826290</td><td ID="MedicationMedication_5">Seroquel</td><td ID="MedicationRoute_5">by mouth</td><td ID="MedicationRouteConcept_5">W36642</td><td ID="MedicationStartDate_5">01/16/2020</td><td ID="MedicationStopDate_5">04/13/2020</td><td ID="MedicationDosageFrequency_5">at bedtime</td><td ID="MedicationDuration_5">30</td><td ID="MedicationFormulaStrength_5">50 mg</td><td ID="MedicationDosageForm_5">tablet</td><td ID="MedicationDosageFormCode_5"></td><td ID="MedicationDosageDescription_5"></td><td ID="MedicationMedicationId_5">[id number]</td><td ID="MedicationAccount_5">[id number]</td><td ID="MedicationNpid_5">[id number]</td><td ID="MedicationAuthorFirstName_5">Lee Ann</td><td ID="MedicationAuthorLastName_5">Tom</td><td ID="MedicationTaxonomyCode_5">[id number]</td><td ID="MedicationTaxonomyDesc_5">Nurse Practitioner</td><td ID="MedicationPhoneNumber_5">[phone]</td> [facility] quetiapine 50 MG Oral Tablet [Seroquel] Seroquel 01/16/2020 12: 00:00 AM EDT 50 mg by mouth completed <td ID="Me dicationRxNorm_3">[id number]</td><td ID="MedicationMedication_3">Seroquel</td><td ID="MedicationRoute_3">by mouth</td><td ID="MedicationRouteConcept_3">[id number]</td><td ID="MedicationStartDate_3">01/16/2020</td><td ID="MedicationStopDate_3">03/16/2020</td><td ID="MedicationDosageFrequency_3">at bedtime</td><td ID="MedicationDuration_3">30</td><td ID="MedicationFormulaStrength_3">50 mg</td><td ID="MedicationDosageForm_3">tablet</td><td ID="MedicationDosageFormCode_3"></td><td ID="MedicationDosageDescription_3"></td><td ID="MedicationMedicationId_3">[id number]</td><td ID="MedicationAccount_3">[id number]</td><td ID="MedicationNpid_3">[id number]</td><td ID="MedicationAuthorFirstName_3">Lee Ann</td><td ID="MedicationAuthorLastName_3">Tom</td><td ID="MedicationTaxonomyCode_3">[id number]</td><td ID="MedicationTaxonomyDesc_3">Nurse Practitioner</td><td ID="MedicationPhoneNumber_3">[phone]</td> [facility] ([facility]) quetiapine 50 MG Oral Tablet [Seroquel] Seroquel 01/16/2020 12: 00:00 AM EDT 50 mg by mouth completed <td ID="Me dicationRxNorm_2">561770</td><td ID="MedicationMedication_2">Seroquel</td><td ID="MedicationRoute_2">by mouth</td><td ID="MedicationRouteConcept_2">I84096</td><td ID="MedicationStartDate_2">01/16/2020</td><td ID="MedicationStopDate_2">05/11/2020</td><td ID="MedicationDosageFrequency_2">at bedtime</td><td ID="MedicationDuration_2">30</td><td ID="MedicationFormulaStrength_2">50 mg</td><td ID="MedicationDosageForm_2">tablet</td><td ID="MedicationDosageFormCode_2"></td><td ID="MedicationDosageDescription_2"></td><td ID="MedicationMedicationId_2">[id number]</td><td ID="MedicationAccount_2">[id number]</td><td ID="MedicationNpid_2">[id number]</td><td ID="MedicationAuthorFirstName_2">Lee Ann</td><td ID="MedicationAuthorLastName_2">Tom</td><td ID="MedicationTaxonomyCode_2">[id number]</td><td ID="MedicationTaxonomyDesc_2">Nurse Practitioner</td><td ID="MedicationPhoneNumber_2">[phone]</td> [facility] ([facility]) 100 mg 01/15/2020 12:00:00 AM EDT tablet sustained-releas e 12 hr 30 TAKE ONE TABLET BY MOUTH EVERY MORNING TAKE ONE TABLET BY MOUTH EVERY MORNING SOLD: 01/15/2020 [facility] 300 mg 01/13/2020 12:00:00 AM EDT capsule 30 TAKE ONE CAPSULE BY MOUTH AT BEDTIME TAKE ONE CAPSULE BY MOUTH AT BEDTIME SOLD: 01/15/2020 [facility] 100 mg 01/12/2020 12:00:00 AM EDT capsule 60 TAKE ONE CAPSULE BY MOUTH TWICE A DAY TAKE ONE CAPSULE BY MOUTH TWICE A DAY SOLD: 01/15/2020 [facility] 25 mg 01/03/2020 12:00:00 AM EDT tablet 30 TAKE ONE TABLET BY MOUTH AT BEDTIME TAKE ONE TABLET BY MOUTH AT BEDTIME SOLD: 01/03/2020 [facility] quetiapine 25 MG Oral Tablet [Seroquel] Seroquel 01/02/2020 12: 00:00 AM EDT 25 mg by mouth completed <td ID="Me dicationRxNorm_4">781016</td><td ID="MedicationMedication_4">Seroquel</td><td ID="MedicationRoute_4">by mouth</td><td ID="MedicationRouteConcept_4">K13722</td><td ID="MedicationStartDate_4">01/02/2020</td><td ID="MedicationStopDate_4">02/01/2020</td><td ID="MedicationDosageFrequency_4">at bedtime</td><td ID="MedicationDuration_4">30</td><td ID="MedicationFormulaStrength_4">25 mg</td><td ID="MedicationDosageForm_4">tablet</td><td ID="MedicationDosageFormCode_4"></td><td ID="MedicationDosageDescription_4"></td><td ID="MedicationMedicationId_4">[id number]</td><td ID="MedicationAccount_4">[id number]</td><td ID="MedicationNpid_4">[id number]</td><td ID="MedicationAuthorFirstName_4">Lee Ann</td><td ID="MedicationAuthorLastName_4">Tom</td><td ID="MedicationTaxonomyCode_4">[id number]</td><td ID="MedicationTaxonomyDesc_4">Nurse Practitioner</td><td ID="MedicationPhoneNumber_4">[phone]</td> [facility] ([facility]) 2 mg 12/21/2019 12:00:00 AM EDT tablet 30 TAKE ONE TABLET BY MOUTH EVERY MORNING TAKE ONE TABLET BY MOUTH EVERY MORNING SOLD: 12/22/2019 [facility] 100 mg 12/21/2019 12:00:00 AM EDT tablet sustained-releas e 12 hr 30 TAKE ONE TABLET BY MOUTH EVERY MORNING TAKE ONE TABLET BY MOUTH EVERY MORNING SOLD: 12/22/2019 [facility] 12 HR Bupropion Hydrochloride 100 MG Extended Release Oral Tablet [Wellbutrin] Wellbutrin SR 12/20/2019 12:00:00 AM EDT 100 mg by mouth co mpleted <td ID="MedicationRxNorm_4">808103</td><td ID="MedicationMedication_4">Wellbutrin SR</td><td ID="MedicationRoute_4">by mouth</td><td ID="MedicationRouteConcept_4">W19771</td><td ID="MedicationStartDate_4">12/20/2019</td><td ID="MedicationStopDate_4">02/15/2020</td><td ID="MedicationDosageFrequency_4">every morning</td><td ID="MedicationDuration_4">30</td><td ID="MedicationFormulaStrength_4">100 mg</td><td ID="MedicationDosageForm_4">tablet sustained-release 12 hr</td><td ID="MedicationDosageFormCode_4"></td><td ID="MedicationDosageDescription_4"></td><td ID="MedicationMedicationId_4">[id number]</td><td ID="MedicationAccount_4">[id number]</td><td ID="MedicationNpid_4">[id number]</td><td ID="MedicationAuthorFirstName_4">Lee Ann</td><td ID="MedicationAuthorLastName_4">Tom</td><td ID="MedicationTaxonomyCode_4">[id number]</td><td ID="MedicationTaxonomyDesc_4"> Nurse Practitioner</td><td ID="MedicationPhoneNumber_4">[phone]</td> [facility] ([facility]) aripiprazole 2 MG Oral Tablet aripiprazole 12/20/2019 12:00:00 AM EDT 2 mg by mouth completed <td ID="Medica tionRxNorm_2">413574</td><td ID="MedicationMedication_2">aripiprazole</td><td ID="MedicationRoute_2">by mouth</td><td ID="MedicationRouteConcept_2">M61602</td><td ID="MedicationStartDate_2">12/20/2019</td><td ID="MedicationStopDate_2">01/02/2020</td><td ID="MedicationDosageFrequency_2">every morning</td><td ID="MedicationDuration_2">30</td><td ID="MedicationFormulaStrength_2">2 mg</td><td ID="MedicationDosageForm_2">tablet</td><td ID="MedicationDosageFormCode_2"></td><td ID="MedicationDosageDescription_2"> </td><td ID="MedicationMedicationId_2">[id number]</td><td ID="MedicationAccount_2">[id number]</td><td ID="MedicationNpid_2">[id number]</td><td ID="MedicationAuthorFirstName_2">Lee Ann</td><td ID="MedicationAuthorLastName_2">Tom</td><td ID="MedicationTaxonomyCode_2">[id number]</td><td ID="MedicationTaxonomyDesc_2">Nurse Practitioner</td><td ID="MedicationPhoneNumber_2">[phone]</td> [facility] ([facility]) 12 HR Bupropion Hydrochloride 100 MG Extended Release Oral Tablet [Wellbutrin] Wellbutrin SR 12/20/2019 12:00:00 AM EDT 100 mg by mouth co mpleted <td ID="MedicationRxNorm_2">814527</td><td ID="MedicationMedication_2">Wellbutrin SR</td><td ID="MedicationRoute_2">by mouth</td><td ID="MedicationRouteConcept_2">H59630</td><td ID="MedicationStartDate_2">12/20/2019</td><td ID="MedicationStopDate_2">02/13/2020</td><td ID="MedicationDosageFrequency_2">every morning</td><td ID="MedicationDuration_2">30</td><td ID="MedicationFormulaStrength_2">100 mg</td><td ID="MedicationDosageForm_2">tablet sustained-release 12 hr</td><td ID="MedicationDosageFormCode_2"></td><td ID="MedicationDosageDescription_2"></td><td ID="MedicationMedicationId_2">[id number]</td><td ID="MedicationAccount_2">[id number]</td><td ID="MedicationNpid_2">[id number]</td><td ID="MedicationAuthorFirstName_2">Tessie</td><td ID="MedicationAuthorLastName_2">Redd</td><td ID="MedicationTaxonomyCode_2">[id number]</td><td ID="MedicationTaxonomyDesc_2"> Psychiatric/Mental Health</td><td ID="MedicationPhoneNumber_2">[phone]</td> [facility] ([facility]) 12 HR Bupropion Hydrochloride 100 MG Extended Release Oral Tablet [Wellbutrin] Wellbutrin SR 12/20/2019 12:00:00 AM EDT 100 mg by mouth co mpleted <td ID="MedicationRxNorm_3">040137</td><td ID="MedicationMedication_3">Wellbutrin SR</td><td ID="MedicationRoute_3">by mouth</td><td ID="MedicationRouteConcept_3">H08378</td><td ID="MedicationStartDate_3">12/20/2019</td><td ID="MedicationStopDate_3">02/01/2020</td><td ID="MedicationDosageFrequency_3">every morning</td><td ID="MedicationDuration_3">30</td><td ID="MedicationFormulaStrength_3">100 mg</td><td ID="MedicationDosageForm_3">tablet sustained-release 12 hr</td><td ID="MedicationDosageFormCode_3"></td><td ID="MedicationDosageDescription_3"></td><td ID="MedicationMedicationId_3">[id number]</td><td ID="MedicationAccount_3">[id number]</td><td ID="MedicationNpid_3">[id number]</td><td ID="MedicationAuthorFirstName_3">Lee Ann</td><td ID="MedicationAuthorLastName_3">Tom</td><td ID="MedicationTaxonomyCode_3">[id number]</td><td ID="MedicationTaxonomyDesc_3"> Nurse Practitioner</td><td ID="MedicationPhoneNumber_3">[phone]</td> [facility] ([facility]) 300 mg 12/19/2019 12:00:00 AM EDT capsule 30 TAKE ONE CAPSULE BY MOUTH EVERY DAY AT BEDTIME TAKE ONE CAPSULE BY MOUTH EVERY DAY AT BEDTIME SOLD: 020 [facility] 100 mg 12/01/2019 12:00:00 AM EDT capsule 60 TAKE 1 CAPSULE BY MOUTH EVERY MONRING AND AFTERNOON TAKE 1 CAPSULE BY MOUTH EVERY MONRING AND AFTERNOON SO LD: 12/01/2019 [facility] 5 mg 11/13/2019 12:00:00 AM EDT tablet 49 TAKE ONE TABLET BY MOUTH TWICE A DAY (EVERY MORNING AND AT 12NOON) MAXIMUM DAILY DOSE = 2 TAKE ONE TABLET BY MOUTH TWICE A DAY (EVERY MORNING AND AT 12NOON) MAXIMUM DAILY DOSE = 2 SOLD: 11/13/2019 [facility] Amphetamine aspartate 1.25 MG / Amphetam ine Sulfate 1.25 MG / Dextroamphetamine saccharate 1.25 MG / Dextroamphetamine Sulfate 1.25 MG Oral Tablet dextroamphetamine-amphetamine 11/13/2019 12:00:00 AM EDT 5 mg by mouth completed <td ID="MedicationRx Norm_2">837064</td><td ID="MedicationMedication_2">dextroamphetamine-amphetamine</td><td ID="MedicationRoute_2">by mouth</td><td ID="MedicationRouteConcept_2"> W59842</td><td ID="MedicationStartDate_2">11/13/2019</td><td ID="MedicationStopDate_2">12/13/2019</td><td ID="MedicationDosageFrequency_2">twice a day</td><td ID="MedicationDuration_2">30</td><td ID="MedicationFormulaStrength_2">5 mg</td><td ID="MedicationDosageForm_2">tablet</td><td ID="MedicationDosageFormCode_2"></td><td ID="MedicationDosageDescription_2">as directed</td><td ID="MedicationMedicationId_2">[id number]</td><td ID="MedicationAccount_2">[id number]</td><td ID="MedicationNpid_2">[id number]</td><td ID="MedicationAuthorFirstName_2">Lee Ann</td><td ID="MedicationAuthorLastName_2">Tom</td><td ID="MedicationTaxonomyCode_2">[id number]</td><td ID="MedicationTaxonomyDesc_2"> Nurse Practitioner</td><td ID="MedicationPhoneNumber_2">[phone]</td> [facility] ([facility]) 5 mg 11/13/2019 12:00:00 AM EDT tablet 11 TAKE ONE TABLET BY MOUTH TWICE A DAY (EVERY MORNING AND AT 12NOON) MAXIMUM DAILY DOSE = 2 TAKE ONE TABLET BY MOUTH TWICE A DAY (EVERY MORNING AND AT 12NOON) MAXIMUM DAILY DOSE = 2 SOLD: 11/13/2019 [facility] 300 mg 11/13/2019 12:00:00 AM EDT capsule 30 TAKE ONE CAPSULE BY MOUTH AT BEDTIME TAKE ONE CAPSULE BY MOUTH AT BEDTIME SOLD: 11/13/2019 [facility] Amphetamine aspartate 1.25 MG / Amphetam ine Sulfate 1.25 MG / Dextroamphetamine saccharate 1.25 MG / Dextroamphetamine Sulfate 1.25 MG Oral Tablet dextroamphetamine-amphetamine 11/13/2019 12:00:00 AM EDT 5 mg by mouth completed <td ID="MedicationRx Norm_3">165814</td><td ID="MedicationMedication_3">dextroamphetamine-amphetamine</td><td ID="MedicationRoute_3">by mouth</td><td ID="MedicationRouteConcept_3"> O56052</td><td ID="MedicationStartDate_3">11/13/2019</td><td ID="MedicationStopDate_3">12/13/2019</td><td ID="MedicationDosageFrequency_3">twice a day</td><td ID="MedicationDuration_3">30</td><td ID="MedicationFormulaStrength_3">5 mg</td><td ID="MedicationDosageForm_3">tablet</td><td ID="MedicationDosageFormCode_3"></td><td ID="MedicationDosageDescription_3">as directed</td><td ID="MedicationMedicationId_3">[id number]</td><td ID="MedicationAccount_3">[id number]</td><td ID="MedicationNpid_3">[id number]</td><td ID="MedicationAuthorFirstName_3">Lee Ann</td><td ID="MedicationAuthorLastName_3">Tom</td><td ID="MedicationTaxonomyCode_3">[id number]</td><td ID="MedicationTaxonomyDesc_3"> Nurse Practitioner</td><td ID="MedicationPhoneNumber_3">[phone]</td> [facility] 5 mg 11/01/2019 12:00:00 AM EDT tablet 14 TAKE ONE TABLET BY MOUTH TWICE A DAY MAXIMUM DAILY DOSE = 2 TAKE ONE TABLET BY MOUTH TWICE A DAY MAX IMUM DAILY DOSE = 2 SOLD: 11/03/2019 [facility] olanzapine 5 MG Oral Tablet olanzapine 10/09/2019 12:00:00 AM EDT 5 mg by mouth completed <td ID="Medica tionRxNorm_1">867734</td><td ID="MedicationMedication_1">olanzapine</td><td ID="MedicationRoute_1">by mouth</td><td ID="MedicationRouteConcept_1">V98076</td><td ID="MedicationStartDate_1">10/09/2019</td><td ID="MedicationStopDate_1">12/08/2019</td><td ID="MedicationDosageFrequency_1">at bedtime</td><td ID="MedicationDuration_1">30</td><td ID="MedicationFormulaStrength_1">5 mg</td><td ID="MedicationDosageForm_1">tablet</td><td ID="MedicationDosageFormCode_1"></td><td ID="MedicationDosageDescription_1"></td><td ID="MedicationMedicationId_1">[id number]</td><td ID="MedicationAccount_1">[id number]</td><td ID="MedicationNpid_1">[id number]</td><td ID="MedicationAuthorFirstName_1">Lee Ann</td><td ID="MedicationAuthorLastName_1">Tom</td><td ID="MedicationTaxonomyCode_1">[id number]</td><td ID="MedicationTaxonomyDesc_1">Nurse Practitioner</td><td ID="MedicationPhoneNumber_1">[phone]</td> [facility] ([facility]) Insurance Providers Payer name Policy type / Coverage type Policy ID Covered republican ID Covered republican's relationship to sagastume Policy Sag[employer] Plan Information [facility] ([facility]) [id number] Self [id number] [facility] Community Plan Commercial [id number] Self [id number] [facility] Community Plan Commercial [id number] Self [id number] [facility] [id number] SP [id number] [facility] [id number] SP [id number] [facility] [id number] SP [id number] [facility] [id number] SP [id number] SELF PAY [facility] [id number] SP [id number] ANSI-Medicaid [id number] ANSI-Medicaid [id number] ANSI-Medicaid [id number] ANSI-Medicaid [id number] ANSI-Medicaid [id number] ANSI-Medicaid [id number] [facility] [id number] SP [id number] ANSI-Medicaid [id number] ANSI-Medicaid [id number] [facility] [id number] SP [id number] [facility] PLAN [facility] [id number] SP [id number] [employer] [id number] SP [id number] [address] [facility] Commercial [id number] [facility] [id number] [facility] PLAN [facility] [id number] [employer] [facility] [id number] S [id number] [facility] [id number] SP [id number] Managed Care [facility] Community Plan P [id number] S [id number] Medicaid S [id number] S [id number] ANSI-Medicaid [id number] ANSI-Medicaid [id number] ANSI-Medicaid [id number] ANSI-Medicaid [id number] Problems, Conditions, and Diagnoses Code Display Name Description Problem Type Effective Dates Data Source(s) 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 Condition 11/14/2020 12:00:00 AM EDT [facility] ([facility]) F50.00 Anorexia nervosa, unspecified Anorexia nervosa, unspec ified Condition 11/14/2020 12:00:00 AM EDT [facility] ([facility]) F33.2 Major depressive disorder, recurrent 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 Major Depressive Disorder, Recurrent episode, Severe Condition 0 11/14/2020 12:00:00 AM EDT [facility] ([facility]) F43.12 Post-traumatic stress disorder, chronic Post-traumatic stress disorder, chronic Condition 11/14/2020 12:00:00 AM EDT [facility] ([facility]) F90.2 Attention-deficit hyperactivity disorder , combined type Attention- Deficit/Hyperactivity Disorder, Combined presentation Condition 11/30/2019 12:00:00 AM EDT [facility] ([facility]) F31.32 Bipolar disorder, current episode depres sed, moderate Bipolar I Disorder, Current or most recent episode depressed, Moderate Condition 12:00:00 AM EDT [facility] ([facility]) Surgeries/Procedures Procedure Description Date Indications Data Source(s) OFFICE OUTPATIENT VISIT 15 MINUTES 11/14 12:00:00 AM EDT - 11/14/2020 12:00:00 AM EDT [facility] ([facility]) OFFICE OUTPATIENT VISIT 15 MINUTES 11/14/2020 12:00:00 AM EDT [facility] ([facility]) EAR IRRIGATION 10/15/2020 12:00:00 AM EDT eCW1 ([facility]) OFFICE OUTPATIENT VISIT 15 MINUTES 09/24 12:00:00 AM EDT - 09/24/2020 12:00:00 AM EDT [facility] ([facility]) OFFICE OUTPATIENT VISIT 15 MINUTES 09/24/2020 12:00:00 AM EDT [facility] ([facility]) OFFICE OUTPATIENT VISIT 15 MINUTES 08/26 12:00:00 AM EDT - 08/26/2020 12:00:00 AM EDT [facility] ([facility]) OFFICE OUTPATIENT VISIT 15 MINUTES 08/26/2020 12:00:00 AM EDT [facility] ([facility]) Brief Individual Psychotherapy - 30 min 08/15/2020 12:00:00 AM EDT - 08/15/2020 12:00:00 AM EDT [facility] ([facility]) Brief Individual Psychotherapy - 30 min 08/15/2020 12: 00:00 AM EDT [facility] ([facility]) Extended Individual Psychotherapy - 45 min 07/24/2020 12:00:00 AM EDT - 07/24/2020 12:00:00 AM EDT [facility] ([facility]) Extended Individual Psychotherapy - 45 min 12:00:00 AM EDT [facility] ([facility]) Extended Individual Psychotherapy - 45 min 07/09/2020 12:00:00 AM EDT - 07/09/2020 12:00:00 AM EDT [facility] ([facility]) Extended Individual Psychotherapy - 45 min 12:00:00 AM EDT [facility] ([facility]) Extended Individual Psychotherapy - 45 min 06/25/2020 12:00:00 AM EDT - 06/25/2020 12:00:00 AM EDT [facility] ([facility]) Extended Individual Psychotherapy - 45 min 12:00:00 AM EDT [facility] ([facility]) Brief Individual Psychotherapy - 30 min 05/31/2020 12:00:00 AM EST - 05/31/2020 12:00:00 AM EST [facility] ([facility]) Brief Individual Psychotherapy - 30 min 05/31/2020 12: 00:00 AM EST [facility] ([facility]) [id number]"Psychotherapy 12:00:00 AM EST - 05/17/2020 12:00:00 AM EST [facility] ([facility]) [id number]"Psychotherapy 05/17/2020 12:00:00 AM EST [facility] ([facility]) Extended Individual Psychotherapy - 45 min 05/07/2020 12:00:00 AM EST - 05/07/2020 12:00:00 AM EST [facility] ([facility]) Extended Individual Psychotherapy - 45 min 12:00:00 AM EST [facility] ([facility]) MHC Telemed E/M Lvl 3--Est pt 05/07/2020 12:00:00 AM EST - 05/07/2020 12:00:00 AM EST [facility] ([facility]) Psychotherapy ADD ON - 30 Minutes 05/07/2020 12:00:00 AM EST [facility] ([facility]) MHC Telemed E/M Lvl 3--Est pt 05/07/2020 12:00:[address] [facility] ([facility]) Extended Individual Psychotherapy - 45 min 04/19/2020 12:00:00 AM EST - 04/19/2020 12:00:00 AM EST [facility] ([facility]) Extended Individual Psychotherapy - 45 min 12:00:00 AM EST [facility] ([facility]) OFFICE OUTPATIENT VISIT 15 MINUTES 04/09 12:00:00 AM EST - 04/09/2020 12:00:00 AM EST [facility] ([facility]) OFFICE OUTPATIENT VISIT 15 MINUTES 04/09/2020 12:00:00 AM EST [facility] ([facility]) Extended Individual Psychotherapy - 45 min 04/02/2020 12:00:00 AM EST - 04/02/2020 12:00:00 AM EST [facility] ([facility]) Extended Individual Psychotherapy - 45 min 12:00:00 AM EST [facility] ([facility]) OFFICE OUTPATIENT VISIT 15 MINUTES 03/12 12:00:00 AM EST - 03/12/2020 12:00:00 AM EST [facility] ([facility]) OFFICE OUTPATIENT VISIT 15 MINUTES 03/12/2020 12:00:00 AM EST [facility] ([facility]) OFFICE OUTPATIENT VISIT 15 MINUTES 02/12 12:00:00 AM EST - 02/13/2020 12:00:00 AM EST [facility] ([facility]) OFFICE OUTPATIENT VISIT 15 MINUTES 02/13/2020 12:00:00 AM EST [facility] ([facility]) TEMPMHCTelemed--Crisis Brief 01/23/2020 12:00:00 AM EST - 01/23/2020 12:00:00 AM EST [facility] ([facility]) TEMPMHCTelemed--Crisis Brief 01/23/2020 12:00:00 AM ES T [facility] ([facility]) Extended Individual Psychotherapy - 45 min 01/23/2020 12:00:00 AM EST - 01/23/2020 12:00:00 AM EST [facility] ([facility]) Extended Individual Psychotherapy - 45 min 0 12:00:00 AM EST [facility] ([facility]) OFFICE OUTPATIENT VISIT 15 MINUTES 01/15 12:00:00 AM EDT - 01/16/2020 12:00:00 AM EDT [facility] ([facility]) OFFICE OUTPATIENT VISIT 15 MINUTES 01/16/2020 12:00:00 AM EDT [facility] ([facility]) OFFICE OUTPATIENT VISIT 15 MINUTES 01/01 12:00:00 AM EDT - 01/02/2020 12:00:00 AM EDT [facility] ([facility]) OFFICE OUTPATIENT VISIT 15 MINUTES 01/02/2020 12:00:00 AM EDT [facility] ([facility]) Extended Individual Psychotherapy - 45 min 12/26/2019 12:00:00 AM EDT - 12/26/2019 12:00:00 AM EDT [facility] ([facility]) Extended Individual Psychotherapy - 45 min 0 12:00:00 AM EDT [facility] ([facility]) OFFICE OUTPATIENT VISIT 15 MINUTES 12/19 12:00:00 AM EDT - 12/20/2019 12:00:00 AM EDT [facility] ([facility]) Psychotherapy ADD ON - 30 Minutes 12/20/2019 12:00:00 AM EDT [facility] ([facility]) OFFICE OUTPATIENT VISIT 15 MINUTES 12/20/2019 12:00:00 AM EDT [facility] ([facility]) Brief Individual Psychotherapy - 30 min 12/19/2019 12:00:00 AM EDT - 12/19/2019 12:00:00 AM EDT [facility] ([facility]) Brief Individual Psychotherapy - 30 min 12/19/2019 12: 00:00 AM EDT [facility] ([facility]) Extended Individual Psychotherapy - 45 min 12/11/2019 12:00:00 AM EDT - 12/11/2019 12:00:00 AM EDT [facility] ([facility]) Extended Individual Psychotherapy - 45 min 0 12:00:00 AM EDT [facility] ([facility]) Extended Individual Psychotherapy - 45 min 11/30/2019 12:00:00 AM EDT - 11/30/2019 12:00:00 AM EDT [facility] ([facility]) Extended Individual Psychotherapy - 45 min 0 12:00:00 AM EDT [facility] ([facility]) Results ID Date Data Source CHLAMYDIA, GC & TRICH AMP 11/07/2020 12:00:00 AM EDT eCW1 ([facility], [facility]) Name Value Range Interpretation Code Description Data Angie rce(s) Supporting Document(s) NOT DETECTED NEGATIVE Trichomonas vaginalis ( AMP) eCW1 ([facility]) ID Date Data Source PAP REQUEST FOR SERVICE 11/07/2020 12:00:00 AM EDT eCW1 ([facility]) Name Value Range Interpretation Code Description Data Angie rce(s) Supporting Document(s) PAP REQUEST FOR SERVICE eCW1 ( [facility]) Procedure Social History Code Duration Value Status Description Data Source(s ) Smoking 11/14/2020 12:00:00 AM EDT Unknown if ever smoked comp leted Unknown if ever smoked [facility] ([facility]) Smoking 11/07/2020 12:00:00 AM EDT Never Smoker completed Never S moker eCW1 ([facility]) Smoking 10/15/2020 12:00:00 AM EDT Never Smoker completed Never S moker eCW1 ([facility]) Smoking 10/15/2020 12:00:00 AM EDT Never Smoker completed Never S moker eCW1 ([facility]) Smoking 09/24/2020 12:00:00 AM EDT Unknown if ever smoked comp leted Unknown if ever smoked [facility] ([facility]) Smoking 08/26/2020 12:00:00 AM EDT Unknown if ever smoked comp leted Unknown if ever smoked [facility] ([facility]) Smoking 08/15/2020 12:00:00 AM EDT Unknown if ever smoked comp leted Unknown if ever smoked [facility] ([facility]) Smoking 07/24/2020 12:00:00 AM EDT Unknown if ever smoked comp leted Unknown if ever smoked [facility] ([facility]) Smoking 07/09/2020 12:00:00 AM EDT Unknown if ever smoked comp leted Unknown if ever smoked [facility] ([facility]) Smoking 06/25/2020 12:00:00 AM EDT Unknown if ever smoked comp leted Unknown if ever smoked [facility] ([facility]) Smoking 05/31/2020 12:00:00 AM EST Unknown if ever smoked comp leted Unknown if ever smoked [facility] ([facility]) Smoking 05/17/2020 12:00:00 AM EST Unknown if ever smoked comp leted Unknown if ever smoked [facility] ([facility]) Smoking 05/07/2020 12:00:00 AM EST Unknown if ever smoked comp leted Unknown if ever smoked [facility] ([facility]) Smoking 04/19/2020 12:00:00 AM EST Unknown if ever smoked comp leted Unknown if ever smoked [facility] ([facility]) Smoking 04/09/2020 12:00:00 AM EST Unknown if ever smoked comp leted Unknown if ever smoked [facility] ([facility]) Smoking 04/02/2020 12:00:00 AM EST Unknown if ever smoked comp leted Unknown if ever smoked [facility] ([facility]) Smoking 03/12/2020 12:00:00 AM EST Unknown if ever smoked comp leted Unknown if ever smoked [facility] ([facility]) Smoking 02/13/2020 12:00:00 AM EST Unknown if ever smoked comp leted Unknown if ever smoked [facility] ([facility]) Smoking 01/23/2020 12:00:00 AM EST Unknown if ever smoked comp leted Unknown if ever smoked [facility] ([facility]) Smoking 01/16/2020 12:00:00 AM EDT Unknown if ever smoked comp leted Unknown if ever smoked [facility] ([facility]) Smoking 01/02/2020 12:00:00 AM EDT Unknown if ever smoked comp leted Unknown if ever smoked [facility] ([facility]) Smoking 12/26/2019 12:00:00 AM EDT Unknown if ever smoked comp leted Unknown if ever smoked [facility] ([facility]) Smoking 12/20/2019 12:00:00 AM EDT Unknown if ever smoked comp leted Unknown if ever smoked [facility] ([facility]) Smoking 12/19/2019 12:00:00 AM EDT Unknown if ever smoked comp leted Unknown if ever smoked [facility] ([facility]) Smoking 12/11/2019 12:00:00 AM EDT Unknown if ever smoked comp leted Unknown if ever smoked [facility] ([facility]) Smoking 11/30/2019 12:00:00 AM EDT Unknown if ever smoked comp leted Unknown if ever smoked [facility] ([facility]) Vital Signs ID Date Data Source UNK Name Value Range Interpretation Code Description Data Source(s) Body weight 140 [lb_av] 140 [lb_av] eCW1 ([facility]) Body height 63 [in_i] 63 [in_i] eCW1 ([facility]) Body mass index (BMI) [Ratio] 24.8 kg/m2 24.8 k g/m2 eCW1 ([facility]) Systolic blood pressure 102 mm[Hg] 102 mm[Hg] e CW1 ([facility]) Diastolic blood pressure 68 mm[Hg] 68 mm[Hg] eCW1 ([facility]) Body weight 137 [lb_av] 137 [lb_av] eCW1 ([facility]) Body height 63 [in_i] 63 [in_i] eCW1 ([facility]) Body mass index (BMI) [Ratio] 24.27 kg/m2 24.27 kg/m2 eCW1 ([facility]) Heart rate 77 /min 77 /min eCW1 ([facility]) Respiratory rate 18 /min 18 /min eCW1 ([facility]) Body temperature 98.1 [degF] 98.1 [degF] eCW1 ( [facility]) Systolic blood pressure 110 mm[Hg] 110 mm[Hg] e CW1 ([facility]) Diastolic blood pressure 70 mm[Hg] 70 mm[Hg] eCW1 ([facility]) Body height 0.00 in Normal (applies to non-numeric resu lts) 0.00 in [facility] ([facility]) Body weight Measured 0.00 lbs Normal (applies to n on-numeric results) 0.00 lbs [facility] ([facility]) Body mass index (BMI) [Ratio] 0.00 kg/m2 No rmal (applies to non-numeric results) 0.00 kg/m2 [facility] ([facility]) Systolic blood pressure 0 mm[Hg] Normal (applies t o non-numeric results) 0 mm[Hg] [facility] ([facility]) Diastolic blood pressure 0 mm[Hg] Normal (applies to non-numeric results) 0 mm[Hg] [facility] ([facility]) Body height 0.00 in Normal (applies to non-numeric resu lts) 0.00 in [facility] ([facility]) Body weight Measured 0.00 lbs Normal (applies to n on-numeric results) 0.00 lbs [facility] ([facility]) Body mass index (BMI) [Ratio] 0.00 kg/m2 No rmal (applies to non-numeric results) 0.00 kg/m2 [facility] ([facility]) Systolic blood pressure 0 mm[Hg] Normal (applies t o non-numeric results) 0 mm[Hg] [facility] ([facility]) Diastolic blood pressure 0 mm[Hg] Normal (applies to non-numeric results) 0 mm[Hg] [facility] ([facility]) Body height 0.00 in Normal (applies to non-numeric resu lts) 0.00 in [facility] ([facility]) Body weight Measured 0.00 lbs Normal (applies to n on-numeric results) 0.00 lbs [facility] ([facility]) Body mass index (BMI) [Ratio] 0.00 kg/m2 No rmal (applies to non-numeric results) 0.00 kg/m2 [facility] ([facility]) Systolic blood pressure 0 mm[Hg] Normal (applies t o non-numeric results) 0 mm[Hg] [facility] ([facility]) Diastolic blood pressure 0 mm[Hg] Normal (applies to non-numeric results) 0 mm[Hg] [facility] ([facility]) Body height 0.00 in Normal (applies to non-numeric resu lts) 0.00 in [facility] ([facility]) Body weight Measured 0.00 lbs Normal (applies to n on-numeric results) 0.00 lbs [facility] ([facility]) Body mass index (BMI) [Ratio] 0.00 kg/m2 No rmal (applies to non-numeric results) 0.00 kg/m2 [facility] ([facility]) Systolic blood pressure 0 mm[Hg] Normal (applies t o non-numeric results) 0 mm[Hg] [facility] ([facility]) Diastolic blood pressure 0 mm[Hg] Normal (applies to non-numeric results) 0 mm[Hg] [facility] ([facility]) Body height 0.00 in Normal (applies to non-numeric resu lts) 0.00 in [facility] ([facility]) Body weight Measured 0.00 lbs Normal (applies to n on-numeric results) 0.00 lbs [facility] ([facility]) Body mass index (BMI) [Ratio] 0.00 kg/m2 No rmal (applies to non-numeric results) 0.00 kg/m2 [facility] ([facility]) Systolic blood pressure 0 mm[Hg] Normal (applies t o non-numeric results) 0 mm[Hg] [facility] ([facility]) Diastolic blood pressure 0 mm[Hg] Normal (applies to non-numeric results) 0 mm[Hg] [facility]) Body height 0.00 in Normal (applies to non-numeric resu lts) 0.00 in [facility] ([facility]) Body mass index (BMI) [Ratio] 0.00 kg/m2 No rmal (applies to non-numeric results) 0.00 kg/m2 [facility] ([facility]) Body weight Measured 0.00 lbs Normal (applies to n on-numeric results) 0.00 lbs [facility] ([facility]) Systolic blood pressure 0 mm[Hg] Normal (applies t o non-numeric results) 0 mm[Hg] [facility] ([facility]) Diastolic blood pressure 0 mm[Hg] Normal (applies to non-numeric results) 0 mm[Hg] [facility] ([facility]) Body height 0.00 in Normal (applies to non-numeric resu lts) 0.00 in [facility]) Body weight Measured 0.00 lbs Normal (applies to n on-numeric results) 0.00 lbs [facility] ([facility]) Body mass index (BMI) [Ratio] 0.00 kg/m2 No rmal (applies to non-numeric results) 0.00 kg/m2 [facility] ([facility]) Systolic blood pressure 0 mm[Hg] Normal (applies t o non-numeric results) 0 mm[Hg] [facility] ([facility]) Diastolic blood pressure 0 mm[Hg] Normal (applies to non-numeric results) 0 mm[Hg] [facility] ([facility]) Patient Treatment Plan of Care Planned Activity Planned Date Details Description Data Source (s) Hydrocortisone 25 MG/ML Topical Cream 10/15/2020 12:00:00 AM EDT eCW1 ([facility]) Docusate Sodium 100 MG Oral Capsule [Colace] 10/15/2020 12:00:00 AM EDT eCW1 ([facility]) Hydrocortisone 25 MG/ML Topical Cream 10/15/2020 12:00:00 AM EDT eCW1 ([facility]) Docusate Sodium 100 MG Oral Capsule [Colace] 10/15/2020 12:00:00 AM EDT eCW1 ([facility])
--- OUTSIDE RECORDS SUMMARY | 2021-01-01 15:51 | CCD ---
Author Author [facility] Organization [facility] Address Unknown Phone Unavailable Care Team Providers Care Graphics Edit Technician Name Role Phone Laury Davis Unavailable PROBLEMS Type Condition ICD9-CM Code [id number] Code Onset Dates Condition S tatus W/U Status Risk SNOMED Code Notes Problem Difficulty concentrating R41.840 Active confirmed 24074527 Problem Other chronic pain G89.29 Active confirmed 8 2848635 Problem Anxiety F41.9 Active confirmed 79647318 Problem Attention-deficit hyperactiv ity disorder, predominantly inattentive type F90.0 Active confirmed 77243958 Problem Perioral dermatitis L71.0 Active confirmed 608100388 Problem Vitamin D deficiency E55.9 Active confirmed 16762032 Problem Generalized anxiety disorder F41.1 Active confirme d 07116938 Problem Attention deficit hyperactivity disorder (ADHD), unspecified ADHD type F90.9 Active confirmed 576870979 Problem Attention-deficit hyperactiv ity disorder, predominantly hyperactive type F90.1 Active confirmed 110586430 ALLERGIES No Known Allergies ENCOUNTERS from 1993 to 2020-10-15 Encounter Location Date Provider Diagnosis [address] [phone] [place] [address] Sep, Laury Davis IMMUNIZATIONS Vaccine Route Administration Date Status TDAP VFC 0.5mL Boostrix Unknown Jan 27, 2017 Administ ered Influenza 6mo & up Fluzone IM Intramuscular Feb 08, 2018 Admi nistered SOCIAL HISTORY Tobacco Use: Social History Observation Description Date Details (start date - stop date) Never Smoker Sex Assigned At : Social History Observation Description Sex Assigned At Unknown Education: Question Answer Notes Level of Education: High School Audit Question Answer Notes Total Score: 0 Interpretation: Alcohol Education Language: Question Answer Notes Languages spoken: Both Uzbek and Panamanian Jainism: Question Answer Notes Jainism 33 None Sexual Hx: Question Answer Notes Had sex in the last 12 months (vaginal, oral, or anal)? No LMP: 05/2017 Have you ever had an STD? No Drug and Alcohol Question Answer Notes Total Score: 0 Interpretation: No problems reported Alcohol Screening: Question Answer Notes Did you have a drink containing alcohol in the past year? No Points 0 Interpretation Negative Tobacco Use: Question Answer Notes Are you a: never smoker REASON FOR REFERRAL No Information VITAL SIGNS No information MEDICATIONS Medication SIG (Take, Route, Frequency, Duration) Notes Start Da te End Date Status Colace 100 MG 1 capsule as needed Orally Once a day for 30 day (s) Sep, Active Acetaminophen 500 MG 2 capsule as needed Orally every 6 hrs Active Hydrocortisone (Perianal) 2.5 % 1 application to rectu m Externally Twice a day as needed for 14 days Sep, Active Ibuprofen 800 MG 1 tablet with food or milk as needed Ora lly Three times a day Active PROCEDURES No Information RESULTS No Results REASON FOR VISIT can not hear out of left ear MEDICAL (GENERAL) HISTORY Type Description Date Medical History Anxiety Medical History ADHD - previously seen at [facility] Medical History Mild thoracolumbar scoliosis noted on X- ray 06/06 Medical History Right knee injury 06/2018 Surgical History 2008 Surgical History Rt hand tendon repair 2014 Surgical History Right knee athroscopy after injury 10/08 18 Hospitalization History with child x 4 Goals Section No Information Health Concerns No Information MEDICAL EQUIPMENT No Information MENTAL STATUS No Information FUNCTIONAL STATUS No Information ASSESSMENTS No Information PLAN OF TREATMENT Medication Medication Name Sig Start Date Stop Date Colace 100 MG 1 capsule as needed Orally Once a day for 30 day (s) Sep, Hydrocortisone (Perianal) 2.5 % 1 application to rectu m Externally Twice a day as needed for 14 days Sep, Next Appt Details Provider Name:Tabitha Dill, 2020-11-07 01:20:00 PM, [address] [place] [address], , [place], [address], Provider Name:Laury Davis, 2021-01-20 02:30:00 PM, [address] [place] [address], , [place], [address], Insurance Providers Payer Name Payer Address Payer Phone Insured Name Patient Relati onship to Insured Coverage Start Date Coverage End Date [employer] [facility] [address] [facility] [phone] OLU SAUNDERS self
--- OUTSIDE RECORDS SUMMARY | 2021-01-01 15:51 | CCD ---
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 11/15/19 21 Medications No Data in Section Social History Social History Element Description Concept Effective Date Smoking Status Unknown if ever smoked [id number] Immunizations No Data in Section Vital Signs No Data in Section Procedures Date Concept Id Description Targeted Site Concept Targeted Site Concept Type 11/14/2020 95667 E/M Level 3 - Established Patient CPT Patient has no history of implantable de vices Encounters Encounter Start Date End Date Encounter Type Description Diagnosis Di agnosis Desc Location Author First Name Author Last Name Npid Taxonomy Cod e Taxonomy Desc Phone Number Location Addr1 Location Addr2 Location [facility] Location [facility] Location [facility] [id number] 11/14/2020 11/14/2020 21929 E/M Level 3 - Established Pa tient F43.12 Post-traumatic stress disorder, chronic Community [facility] Tom Jyothi [id number] Nurse Practitioner [phone] [address] [address] Plan of Treatment No Data in Section Lab Results No Data in Section Instructions No Data in Section Functional Cognitive Status No Data in Section Insurance Providers Insurance Id Policy Effective Date Policy Thru Date Company N in[place] [id number] 2019 [employer] Managed M' caid
--- OUTSIDE RECORDS SUMMARY | 2021-01-01 15:51 | CCD ---
Author Author [facility] Organization [facility] Address Unknown Phone Unavailable Care Team Providers Care English Professor Name Role Phone Mahogany Calderon Unavailable PROBLEMS ALLERGIES No Known Allergies ENCOUNTERS from 1993 to 2020-10-18 IMMUNIZATIONS SOCIAL HISTORY REASON FOR REFERRAL No Information VITAL SIGNS MEDICATIONS PROCEDURES from 1993 to 2020-10-18 RESULTS No Results REASON FOR VISIT MEDICAL (GENERAL) HISTORY Goals Section Health Concerns MEDICAL EQUIPMENT No Information MENTAL STATUS FUNCTIONAL STATUS ASSESSMENTS PLAN OF TREATMENT Insurance Providers
[2021-01-01] MEDS ORDERED: ACETAMINOPHEN 325 MG TAB PO ONE (20:45)
[2021-01-01 21:26] LABS: RSV AMPLIFICATION NEGATIVE (NEGATIVE)
[2021-01-01] MEDS ORDERED: KETOROLAC 30 MG/ML 1ML VIAL IV ONE (23:55)
[2021-01-01] MEDS ORDERED: diphenhydrAMINE 50MG/ML VIAL (J1200) IV ONE (23:55)
[2021-01-01] MEDS ORDERED: NS 1,000 ML IV ONE (23:55)
--- OUTSIDE RECORDS SUMMARY | 2021-01-02 00:21 | CCD ---
Author Author [facility] Organization [facility] Address Unknown Phone Unavailable Care Team Providers Care Automotive Quality Engineer Name Role Phone Tabitha Dill Unavailable PROBLEMS Type Condition ICD9-CM Code [id number] Code Onset Dates Condition S tatus W/U Status Risk SNOMED Code Notes Problem Difficulty concentrating R41.840 Active confirmed 34786235 Problem Other chronic pain G89.29 Active confirmed 8 7586263 Problem Anxiety F41.9 Active confirmed 44740534 Problem Attention-deficit hyperactiv ity disorder, predominantly inattentive type F90.0 Active confirmed 00903081 Problem Perioral dermatitis L71.0 Active confirmed 983599095 Problem Vitamin D deficiency E55.9 Active confirmed 23304893 Problem Generalized anxiety disorder F41.1 Active confirme d 71790969 Problem Attention deficit hyperactivity disorder (ADHD), unspecified ADHD type F90.9 Active confirmed 161265668 Problem Attention-deficit hyperactiv ity disorder, predominantly hyperactive type F90.1 Active confirmed 250715852 ALLERGIES No Known Allergies ENCOUNTERS from 1993 to 2020-12-31 Encounter Location Date Provider Diagnosis [facility] [address] [place] [address] [place] [address] Oct, Tabithafausto Dill Screen for sexual ly transmitted diseases Z11.3 ; Routine gynecological examination Z01.419 and Encounter for screening for malignant neoplasm of cervix Z12.4 IMMUNIZATIONS Vaccine Route Administration Date Status TDAP [...] Language: Question Answer Notes Languages spoken: Both Czech and Occitan Jehovah'S Witness: Question Answer Notes Jehovah'S Witness 33 None Sexual Hx: Question Answer Notes [...] REASON FOR REFERRAL No Information VITAL SIGNS Weight 140 lbs Oct, Height 63 in Oct, BMI 24.8 kg/m2 Oct, Blood pressure systolic 102 mm Hg Oct, Blood pressure diastolic 68 mm Hg Oct, MEDICATIONS Medication SIG (Take, Route, Frequency, Duration) Notes Start Da te End Date Status Acetaminophen 500 MG 2 capsule as needed Orally every 6 hrs Active Colace 100 MG 1 capsule as needed Orally Once a day for 30 day (s) Sep, Not-Taking Ibuprofen 800 MG 1 tablet with food or milk as needed Ora lly Three times a day Active Hydrocortisone (Perianal) 2.5 % 1 application to rectu m Externally Twice a day as needed for 14 days Sep, Active PROCEDURES No Information RESULTS Component Value Reference Range PAP REQUEST FOR SERVICE Reviewed date:11/08/2020 12:34:22 Interpretation: Performing Lab:[facility] [address] [address] , ,[place] [address] CHLAMYDIA, GC & TRICH AMP Reviewed date:11/08/2020 15:38:40 Interpretation: Performing Lab:[facility] [address] [facility] [address] , ,[facility] Trichomonas vaginalis (AMP) NOT DETECTED NEGATIVE REASON FOR VISIT ANNUAL/STD TESTING. Had a one night partner, wants to make sure., No condoms use d. No current partner. Menses are monthly. Has used Plan B, declines contracepti on at this time. States hemorrhoid since delivery of third child. Has used the O TC products . Reports it is more problematic as she's gained weight. "Blocks me when I go to the bathroom" MEDICAL (GENERAL) HISTORY Type Description Date Medical History Anxiety Medical History ADHD - previously seen at [facility] Medical History Mild thoracolumbar scoliosis noted on X- ray 06/06 Medical History Right knee injury 06/2018 Surgical History 2008 Surgical History Rt hand tendon repair 2014 Surgical History Right knee athroscopy after injury 10/08 18 Hospitalization History with child x 4 Goals Section No Information Health Concerns No Information MEDICAL EQUIPMENT No Information MENTAL STATUS No Information FUNCTIONAL STATUS No Information ASSESSMENTS Encounter Date Diagnosis Assessment Notes Treatment Notes Treatm ent Clinical Notes Oct, Routine gynecological examination (ICD-10 - Z01. 419) Oct, Screen for sexually transmitted diseases (ICD-10 - Z11.3) Oct, Encounter for screening for malignant neoplasm of cervix (ICD-10 - Z12.4) PLAN OF TREATMENT Treatment Notes Test Name Order Date SYPHILIS ANTIBODY (RPR SCREEN) 2020-11-07 HIV 1and2 ANTIBODY SCREEN 2020-11-07 HEPATITIS B CORE ANTIBODY IGM 2020-11-07 HEPATITIS A ANTIBODY IGM 2020-11-07 HEPATITIS B SURFACE ANTIGEN 2020-11-07 HEPATITIS C ANTIBODY INDEX 2020-11-07 Next Appt Details 1 Year Reason:annual Provider Name:Laury E Susan, 2021-01-20 02:30:00 PM, [address] [facility], , [place], [address], Follow Up:1 Yearannual Insurance Providers Payer Name Payer Address Payer Phone Insured Name Patient Relati onship to Insured Coverage Start Date Coverage End Date [facility] [address] [facility] [phone] OLU SAUNDERS self
--- OUTSIDE RECORDS SUMMARY | 2021-01-02 00:21 | CCD ---
Author Author [facility] Organization [facility] Address Unknown Phone Unavailable Care Team Providers Care Cable Assembler Name Role Phone Dille, E Pricila DDS Unavailable Unavailable Dille, E Pricila DDS Unavailable Unavailable Dille, E Pricila DDS Unavailable Unavailable Dille, E Pricila DDS Unavailable Unavailable ColletteLexxolga lidiasaundra Unavailable TOM, H LEE ANN EARLY CHILDHOOD AIDE CLASSROOM Unavailable Unavailable TOM, H LEE ANN EARLY CHILDHOOD AIDE CLASSROOM Unavailable Unavailable TOM, H LEE ANN EARLY CHILDHOOD AIDE CLASSROOM Unavailable Unavailable TOM, H LEE ANN EARLY CHILDHOOD AIDE CLASSROOM Unavailable Unavailable TOM, H LEE ANN EARLY CHILDHOOD AIDE CLASSROOM Unavailable Unavailable TOM, H LEE ANN EARLY CHILDHOOD AIDE CLASSROOM Unavailable Unavailable TOM, H LEE ANN EARLY CHILDHOOD AIDE CLASSROOM Unavailable Unavailable TOM, H LEE ANN EARLY CHILDHOOD AIDE CLASSROOM Unavailable Unavailable TOM, H LEE ANN EARLY CHILDHOOD AIDE CLASSROOM Unavailable Unavailable Re-disclosure Warning The records that [...] is protected by Article 27-F of the [facility] Public Health law. If you continue you may have access to information: Regarding HIV / AIDS; Provided by facilities licensed or operated by the [facility] Office of Mental Health; or Provided by the [facility] Office for People With Developmental Disabilities. If such information is present, then the following [facility] mandated warning applies: This information has [...] law may result in a fine or prison sentence or both. A general authorization for the release of medical or other information is NOT sufficient authorization for further disc losure. Family History Family Member Name Family Member Gender Family Member Status Date o f Status Description Data Source(s) Unknown Unknown Problem [facility] ([facility]) Unknown Male Problem [facility] ([facility]) Encounters Encounter Providers Location Date Indications Data Source(s ) Outpatient Attender: LEE ANN YEE NP [facility] Johann l 11/14/2020 11:00:00 AM EDT - 11/14/2020 11:00:00 AM EDT [facility] Attender: LEE ANN YEE NP 11/14/2020 12:00:00 AM EDT [facility] ([facility]) [place] [address] [address] 11/07/2020 12:00:00 AM EDT eCW1 ([facility]) [place] [address] [address] 10/15/2020 12:00:00 AM EDT eCW1 ([facility]) Unknown [address] [address] 10/14/2020 12:00:00 AM EDT eCW1 ([facility]) Outpatient Attender: LEE ANN YEE NP [facility] Johann joel 09/24/2020 11:00:00 AM EDT - 09/24/2020 11:00:00 AM EDT [facility] ([facility]) Attender: LEE ANN YEE NP 09/24/2020 12:00:00 AM EDT [facility] ([facility]) Outpatient Attender: LEE ANN YEE NP [facility] Johann joel 08/26/2020 11:30:00 AM EDT - 08/26/2020 11:30:00 AM EDT [facility] ([facility]) Attender: LEE ANN YEE NP 08/26/2020 12:00:00 AM EDT [facility] ([facility]) Brief Individual Psychotherapy - 30 min Attender: [facility] 08/15/2020 12:00:00 PM EDT - 08/15/2020 12:00:00 PM EDT [facility] ([facility]) Attender: Renaldo Murdock 08/15/2020 12:00:00 AM EDT [facility] ([facility]) Attender: Renaldo Murdock 07/24/2020 12:00:00 AM EDT [facility] ([facility]) Extended [facility] - [facility] 01:15:00 AM EDT - 07/23/2020 01:15:00 AM EDT [facility] ([facility]) Extended Individual Psychotherapy - 45 min Attender: [facility] 07/09/2020 01:15:00 AM EDT - 07/09/2020 01:15:00 AM EDT [facility] ([facility]) Attender: Renaldo Murdock 07/09/2020 12:00:00 AM EDT [facility] ([facility]) Extended Individual Psychotherapy - 45 min Attender: [facility] 06/25/2020 11:00:00 AM EDT - 06/25/2020 11:00:00 AM EDT [facility] ([facility] 12:00:00 AM EDT [facility] ([facility]) Brief Individual Psychotherapy - 30 min Attender: [facility] 05/31/2020 05:00:00 AM EST - 05/31/2020 05:00:00 AM EST [facility] ([facility] 12:00:00 AM EST [facility] ([facility]) [id number]"Psychotherapy Attender: [facility] 05/17/2020 11:00:00 AM EST - 05/17/2020 11:00:00 AM EST [facility] ([facility]) Attender: [facility] 05/17/2020 12:00:00 AM EST [facility] ([facility]) Extended Individual Psychotherapy - 45 min Attender: [facility] 05/07/2020 11:00:00 AM EST - 05/07/2020 11:00:00 AM EST [facility] ([facility]) Outpatient Attender: LEE ANN YEE NP [facility] Johann joel 05/07/2020 02:30:00 AM EST - 05/07/2020 02:30:00 AM EST [facility] ([facility]) [facility]07/[facility] 12:00:00 AM EST [facility] ([facility]) Attender: LEE ANN YEE NP 05/07/2020 12:00:00 AM EST [facility] ([facility]) Extended Individual Psychotherapy - 45 min Attender: [facility] 04/19/2020 11:00:00 AM EST - 04/19/2020 11:00:00 AM EST [facility] ([facility]) Attender: Renaldo Murdock 04/19/2020 12:00:00 AM EST [facility] ([facility]) Outpatient Attender: LEE ANN YEE NP [facility] 04/09/2020 10:00:00 AM EST - 04/09/2020 10:00:00 AM EST [facility] ([facility]) Attender: LEE ANN YEE NP 04/09/2020 12:00:00 AM EST [facility] ([facility]) Extended Individual Psychotherapy - 45 min Attender: Kristi Collette [facility] 04/02/2020 11:00:00 AM EST - 04/02/2020 11:00:00 AM EST [facility] ([facility]) Attender: Renaldo Murdock 04/02/2020 12:00:00 AM EST [facility] ([facility]) Outpatient Attender: LEE ANN YEE NP [facility] 03/12/2020 01:00:00 AM EST - 03/12/2020 01:00:00 AM EST [facility] ([facility]) Attender: LEE ANN YEE NP 03/12/2020 12:00:00 AM EST [facility] ([facility]) Outpatient Attender: LEE ANN YEE NP [facility] 02/13/2020 11:30:00 AM EST - 02/13/2020 11:30:00 AM EST [facility] ([facility]) Attender: LEE ANN YEE NP 02/13/2020 12:00:00 AM EST [facility] ([facility]) TEMPMHCTelemed--Crisis Brief Attender: Renaldo Murdock [facility] 01/23/2020 02:00:00 AM EST - 01/23/2020 02:00:00 AM EST [facility] ([facility]) Extended Individual Psychotherapy - 45 min Attender: Renaldo Murdock [facility] 01/23/2020 01:00:00 AM EST - 01/23/2020 01:00:00 AM EST [facility] Attender: Renaldo Murdock 01/23/2020 12:00:00 AM EST [facility] ([facility]) Attender: Renaldo Murdock 01/23/2020 12:00:00 AM EST [facility] ([facility]) Outpatient Attender: LEE ANN YEE NP [facility] Johann joel 01/16/2020 11:00:00 AM EDT - 01/16/2020 11:00:00 AM EDT [facility] ([facility]) Attender: LEE ANN YEE NP 01/16/2020 12:00:00 AM EDT [facility] ([facility]) Outpatient Attender: LEE ANN YEE NP [facility] Johann joel 01/02/2020 11:30:00 AM EDT - 01/02/2020 11:30:00 AM EDT [facility] ([facility]) Attender: LEE ANN YEE NP 01/02/2020 12:00:00 AM EDT [facility] ([facility]) Extended Individual Psychotherapy - 45 min Attender: Renaldo Murdock [facility] 12/26/2019 01:00:00 AM EDT - 12/26/2019 01:00:00 AM EDT [facility] ([facility]) Attender: Renaldo Murdock 12/26/2019 12:00:00 AM EDT [facility] ([facility]) Outpatient Attender: Pricila CARPENTER 12/21/2019 12:02:[address] [facility] Outpatient Attender: LEE ANN YEE NP [facility] Johann joel 12/20/2019 01:30:00 AM EDT - 12/20/2019 01:30:00 AM EDT [facility] ([facility]) Attender: LEE ANN YEE NP 12/20/2019 12:00:00 AM EDT [facility] ([facility]) Brief Individual Psychotherapy - 30 min Attender: [facility] 12/19/2019 12:30:00 PM EDT - 12/19/2019 12:30:00 PM EDT [facility] ([facility]) Attender: [facility] 12/19/2019 12:00:00 AM EDT [facility] ([facility]) Extended Individual Psychotherapy - 45 min Attender: [facility] 12/11/2019 02:00:00 AM EDT - 12/11/2019 02:00:00 AM EDT [facility] ([facility]) Attender: [facility] 12/11/2019 12:00:00 AM EDT [facility] ([facility]) Extended Individual Psychotherapy - 45 min Attender: [facility] 11/30/2019 11:45:00 AM EDT - 11/30/2019 11:45:00 AM EDT [facility] ([facility]) Attender: [facility] 11/30/2019 12:00:00 AM EDT [facility] ([facility]) Functional Status Medications Medication Brand Name Start [...] % 10/15/2020 12:00:00 AM EDT active eCW1 ([facility]) Hydrocortisone 25 MG/ML Topical Cream Hydrocortisone ( Perianal) 2.5 % Hydrocortisone (Perianal) 2.5 % 10/15/2020 12:00:00 AM EDT active Hydrocortisone (Perianal) 2.5 % eCW1 ([facility]) 2.5 % 10/15/2020 12:00:00 AM EDT cream with perineal geronimo licator 28 APPLY TO RECTUM TWO TIMES A DAY NEEDED APPLY TO RECTUM TWO TIMES A DAY NEEDED SOLD: 10/18/2020 [facility] Hydrocortisone 25 MG/ML Topical Cream Hydrocortisone ( Perianal) 2.5 % Hydrocortisone (Perianal) 2.5 % 10/15/2020 12:00:00 AM EDT active Hydrocortisone (Perianal) 2.5 % eCW1 ([facility]) Docusate Sodium 100 MG Oral Capsule [Colace] Colace 100 MG C olace 100 MG 10/15/2020 12:00:00 AM EDT 1.0 {capsule_as_needed} active Colace 100 MG eCW1 ([facility]) Docusate Sodium 100 MG Oral Capsule [Colace] Colace 100 MG C olace 100 MG 10/15/2020 12:00:00 AM EDT 1.0 {capsule_as_needed} a ctive eCW1 ([facility]) 100 mg 10/15/2020 12:00:00 AM EDT capsule 30 TAKE ONE CAPSULE BY MOUTH EVERY DAY NEEDED TAKE ONE CAPSULE BY MOUTH EVERY DAY NEEDED SOLD: 10/18/2020 [facility] Docusate Sodium 100 MG Oral Capsule [Colace] Colace 100 MG C olace 100 MG 10/15/2020 12:00:00 AM EDT 1.0 {capsule_as_needed} suspended Colace 100 MG eCW1 ([facility]) 300 mg 10/05/2020 12:00:00 AM EDT capsule [...] 2.5 mg by mouth completed <td ID="Me dicationRxNorm_3">144916</td><td ID="MedicationMedication_3">Zyprexa</td><td ID="MedicationRoute_3">by mouth</td><td ID="MedicationRouteConcept_3">F02005</td><td ID="MedicationStartDate_3">09/24/2020</td><td ID="MedicationStopDate_3">09/24/2020</td><td ID="MedicationDosageFrequency_3">at bedtime</td><td ID="MedicationDuration_3">30</td><td ID="MedicationFormulaStrength_3">2.5 mg</td><td ID="MedicationDosageForm_3">tablet</td><td ID="MedicationDosageFormCode_3"></td><td ID="MedicationDosageDescription_3"></td><td ID="MedicationMedicationId_3">[id number]</td><td ID="MedicationAccount_3">[id number]</td><td ID="MedicationNpid_3">[id number]</td><td ID="MedicationAuthorFirstName_3">Lee Ann</td><td ID="MedicationAuthorLastName_3">Tom</td><td ID="MedicationTaxonomyCode_3">[id number]</td><td ID="MedicationTaxonomyDesc_3">Nurse Practitioner</td><td ID="MedicationPhoneNumber_3">[phone]</td> [facility] oxcarbazepine 300 MG Oral Tablet [Trileptal] Trileptal 09/24/2020 12:00:00 AM EDT 300 mg by mouth completed <td ID="MedicationRxNorm_6">958618</td><td ID="MedicationMedication_6">Trileptal</td><td ID="MedicationRoute_6">by mouth</td><td ID="MedicationRouteConcept_6">U80831</td><td ID="MedicationStartDate_6">09/24/2020</td><td ID="MedicationStopDate_6">10/24/2020</td><td ID="MedicationDosageFrequency_6">three times a day</td><td ID="MedicationDuration_6">30</td><td ID="MedicationFormulaStrength_6">300 mg</td><td ID="MedicationDosageForm_6">tablet</td><td ID="MedicationDosageFormCode_6"></td><td ID="MedicationDosageDescription_6">as directed</td><td ID="MedicationMedicationId_6">[id number]</td><td ID="MedicationAccount_6">[id number]</td><td ID="MedicationNpid_6">[id number]</td><td ID="MedicationAuthorFirstName_6">Lee Ann</td><td ID="MedicationAuthorLastName_6">Tom</td><td ID="MedicationTaxonomyCode_6">[id number]</td><td ID="MedicationTaxonomyDesc_6">Nurse Practitioner</td><td ID="MedicationPhoneNumber_6">[phone]</td> [facility] ([facility]) 300 mg 09/17/2020 12:00:00 AM EDT tablet [...] 0.5 mg by mouth completed <td ID="Medica tionRxNorm_5">994047</td><td ID="MedicationMedication_5">risperidone</td><td ID="MedicationRoute_5">by mouth</td><td ID="MedicationRouteConcept_5">N88340</td><td ID="MedicationStartDate_5">08/26/2020</td><td ID="MedicationStopDate_5">09/25/2020</td><td ID="MedicationDosageFrequency_5">at bedtime</td><td ID="MedicationDuration_5">30</td><td ID="MedicationFormulaStrength_5">0.5 mg</td><td ID="MedicationDosageForm_5">tablet</td><td ID="MedicationDosageFormCode_5"></td><td ID="MedicationDosageDescription_5"></td><td ID="MedicationMedicationId_5">[id number]</td><td ID="MedicationAccount_5">[id number]</td><td ID="MedicationNpid_5">[id number]</td><td ID="MedicationAuthorFirstName_5">Lee Ann</td><td ID="MedicationAuthorLastName_5">Tom</td><td ID="MedicationTaxonomyCode_5">[id number]</td><td ID="MedicationTaxonomyDesc_5">Nurse Practitioner</td><td ID="MedicationPhoneNumber_5">[phone]</td> [facility] ([facility]) Risperidone 0.5 MG Oral Tablet risperidone 08/26/2020 12:00:00 AM EDT 0.5 mg by mouth completed <td ID="Medica tionRxNorm_2">617480</td><td ID="MedicationMedication_2">risperidone</td><td ID="MedicationRoute_2">by mouth</td><td ID="MedicationRouteConcept_2">Y80470</td><td ID="MedicationStartDate_2">08/26/2020</td><td ID="MedicationStopDate_2">09/24/2020</td><td ID="MedicationDosageFrequency_2">at bedtime</td><td ID="MedicationDuration_2">30</td><td ID="MedicationFormulaStrength_2">0.5 mg</td><td ID="MedicationDosageForm_2">tablet</td><td ID="MedicationDosageFormCode_2"></td><td ID="MedicationDosageDescription_2"></td><td ID="MedicationMedicationId_2">[id number]</td><td ID="MedicationAccount_2">[id number]</td><td ID="MedicationNpid_2">[id number]</td><td ID="MedicationAuthorFirstName_2">Lee Ann</td><td ID="MedicationAuthorLastName_2">Tom</td><td ID="MedicationTaxonomyCode_2">[id number]</td><td ID="MedicationTaxonomyDesc_2">Nurse Practitioner</td><td ID="MedicationPhoneNumber_2">[phone]</td> [facility] ([facility] 300 mg 08/22/2020 12:00:00 AM EDT [...] 0.5 mg by mouth completed <td ID="Medica tionRxNorm_2">905183</td><td ID="MedicationMedication_2">risperidone</td><td ID="MedicationRoute_2">by mouth</td><td ID="MedicationRouteConcept_2">P02937</td><td ID="MedicationStartDate_2">08/14/2020</td><td ID="MedicationStopDate_2"></td><td ID="MedicationDosageFrequency_2">once a day</td><td ID="MedicationDuration_2">30</td><td ID="MedicationFormulaStrength_2">0.5 mg</td><td ID="MedicationDosageForm_2">tablet</td><td ID="MedicationDosageFormCode_2"></td><td ID="MedicationDosageDescription_2">as needed</td><td ID="MedicationMedicationId_2">[id number]</td><td ID="MedicationAccount_2">[id number]</td><td ID="MedicationNpid_2">[id number]</td><td ID="MedicationAuthorFirstName_2">Lee Ann</td><td ID="MedicationAuthorLastName_2">Tom</td><td ID="MedicationTaxonomyCode_2">[id number]</td><td ID="MedicationTaxonomyDesc_2">Nurse Practitioner</td><td ID="MedicationPhoneNumber_2">[phone]</td> [facility] Risperidone 0.5 MG Oral Tablet risperidone 08/14/2020 12:00:00 AM EDT 0.5 mg by mouth completed <td ID="Medica tionRxNorm_1">834023</td><td ID="MedicationMedication_1">risperidone</td><td ID="MedicationRoute_1">by mouth</td><td ID="MedicationRouteConcept_1">L99943</td><td ID="MedicationStartDate_1">08/14/2020</td><td ID="MedicationStopDate_1">08/26/2020</td><td ID="MedicationDosageFrequency_1">once a day</td><td ID="MedicationDuration_1">30</td><td ID="MedicationFormulaStrength_1">0.5 mg</td><td ID="MedicationDosageForm_1">tablet</td><td ID="MedicationDosageFormCode_1"></td><td ID="MedicationDosageDescription_1">as needed</td><td ID="MedicationMedicationId_1">[id number]</td><td ID="MedicationAccount_1">[id number]</td><td ID="MedicationNpid_1">[id number]</td><td ID="MedicationAuthorFirstName_1">Lee Ann</td><td ID="MedicationAuthorLastName_1">Tom</td><td ID="MedicationTaxonomyCode_1">[id number]</td><td ID="MedicationTaxonomyDesc_1">Nurse Practitioner</td><td ID="MedicationPhoneNumber_1">[phone]</td> [facility] ([facility] 300 mg 06/28/2020 12:00:00 AM EDT tablet [...] 300 mg by mouth completed <td ID="Medica tionRxNorm_4">034368</td><td ID="MedicationMedication_4">gabapentin</td><td ID="MedicationRoute_4">by mouth</td><td ID="MedicationRouteConcept_4">L00755</td><td ID="MedicationStartDate_4">06/17/2020</td><td ID="MedicationStopDate_4">09/25/2020</td><td ID="MedicationDosageFrequency_4">at bedtime</td><td ID="MedicationDuration_4">30</td><td ID="MedicationFormulaStrength_4">300 mg</td><td ID="MedicationDosageForm_4">capsule</td><td ID="MedicationDosageFormCode_4"></td><td ID="MedicationDosageDescription_4"></td><td ID="MedicationMedicationId_4">[id number]</td><td ID="MedicationAccount_4">[id number]</td><td ID="MedicationNpid_4">[id number]</td><td ID="MedicationAuthorFirstName_4">Lee Ann</td><td ID="MedicationAuthorLastName_4">Tom</td><td ID="MedicationTaxonomyCode_4">[id number]</td><td ID="MedicationTaxonomyDesc_4">Nurse Practitioner</td><td ID="MedicationPhoneNumber_4">[phone]</td> [facility] ([facility]) gabapentin 300 MG Oral Capsule gabapentin 06/17/2020 12:00:00 AM EDT 300 mg by mouth completed <td ID="Medica tionRxNorm_5">216681</td><td ID="MedicationMedication_5">gabapentin</td><td ID="MedicationRoute_5">by mouth</td><td ID="MedicationRouteConcept_5">B71737</td><td ID="MedicationStartDate_5">06/17/2020</td><td ID="MedicationStopDate_5">09/25/2020</td><td ID="MedicationDosageFrequency_5">at bedtime</td><td ID="MedicationDuration_5">30</td><td ID="MedicationFormulaStrength_5">300 mg</td><td ID="MedicationDosageForm_5">capsule</td><td ID="MedicationDosageFormCode_5"></td><td ID="MedicationDosageDescription_5"></td><td ID="MedicationMedicationId_5">[id number]</td><td ID="MedicationAccount_5">[id number]</td><td ID="MedicationNpid_5">[id number]</td><td ID="MedicationAuthorFirstName_5">Lee Ann</td><td ID="MedicationAuthorLastName_5">Tom</td><td ID="MedicationTaxonomyCode_5">[id number]</td><td ID="MedicationTaxonomyDesc_5">Nurse Practitioner</td><td ID="MedicationPhoneNumber_5">[phone]</td> [facility] ([facility]) gabapentin 300 MG Oral Capsule gabapentin 06/17/2020 12:00:00 AM EDT 300 mg by mouth completed <td ID="Medica tionRxNorm_1">544476</td><td ID="MedicationMedication_1">gabapentin</td><td ID="MedicationRoute_1">by mouth</td><td ID="MedicationRouteConcept_1">Z75255</td><td ID="MedicationStartDate_1">06/17/2020</td><td ID="MedicationStopDate_1"></td><td ID="MedicationDosageFrequency_1">at bedtime</td><td ID="MedicationDuration_1">30</td><td ID="MedicationFormulaStrength_1">300 mg</td><td ID="MedicationDosageForm_1">capsule</td><td ID="MedicationDosageFormCode_1"></td><td ID="MedicationDosageDescription_1"></td><td ID="MedicationMedicationId_1">[id number]</td><td ID="MedicationAccount_1">[id number]</td><td ID="MedicationNpid_1">[id number]</td><td ID="MedicationAuthorFirstName_1">Lee Ann</td><td ID="MedicationAuthorLastName_1">Tom</td><td ID="MedicationTaxonomyCode_1">[id number]</td><td ID="MedicationTaxonomyDesc_1">Nurse Practitioner</td><td ID="MedicationPhoneNumber_1">[phone]</td> [facility] ([facility]) 10 mg 05/08/2020 12:00:00 AM EST capsule [...] 50 mg by mouth completed <td ID="Me dicationRxNorm_2">302067</td><td ID="MedicationMedication_2">Seroquel</td><td ID="MedicationRoute_2">by mouth</td><td ID="MedicationRouteConcept_2">S19333</td><td ID="MedicationStartDate_2">04/09/2020</td><td ID="MedicationStopDate_2">06/08/2020</td><td ID="MedicationDosageFrequency_2">at bedtime</td><td ID="MedicationDuration_2">30</td><td ID="MedicationFormulaStrength_2">50 mg</td><td ID="MedicationDosageForm_2">tablet</td><td ID="MedicationDosageFormCode_2"></td><td ID="MedicationDosageDescription_2">as needed</td><td ID="MedicationMedicationId_2">[id number]</td><td ID="MedicationAccount_2">[id number]</td><td ID="MedicationNpid_2">[id number]</td><td ID="MedicationAuthorFirstName_2">Lee Ann</td><td ID="MedicationAuthorLastName_2">Tom</td><td ID="MedicationTaxonomyCode_2">[id number]</td><td ID="MedicationTaxonomyDesc_2">Nurse Practitioner</td><td ID="MedicationPhoneNumber_2">[phone]</td> [facility] ([facility] 300 mg 04/09/2020 12:00:00 AM EST tablet 60 TAKE ONE TABLET BY MOUTH TWICE A DAY TAKE ONE TABLET BY MOUTH TWICE A DAY SOLD: 04/09/2020 [facility] quetiapine 50 MG Oral Tablet [Seroquel] Seroquel 04/09/2020 12: 00:00 AM EST 50 mg by mouth completed <td ID="Me dicationRxNorm_4">679193</td><td ID="MedicationMedication_4">Seroquel</td><td ID="MedicationRoute_4">by mouth</td><td ID="MedicationRouteConcept_4">V85686</td><td ID="MedicationStartDate_4">04/09/2020</td><td ID="MedicationStopDate_4">06/08/2020</td><td ID="MedicationDosageFrequency_4">at bedtime</td><td ID="MedicationDuration_4">30</td><td ID="MedicationFormulaStrength_4">50 mg</td><td ID="MedicationDosageForm_4">tablet</td><td ID="MedicationDosageFormCode_4"></td><td ID="MedicationDosageDescription_4">as needed</td><td ID="MedicationMedicationId_4">[id number]</td><td ID="MedicationAccount_4">[id number]</td><td ID="MedicationNpid_4">[id number]</td><td ID="MedicationAuthorFirstName_4">Lee Ann</td><td ID="MedicationAuthorLastName_4">Tom</td><td ID="MedicationTaxonomyCode_4">[id number]</td><td ID="MedicationTaxonomyDesc_4">Nurse Practitioner</td><td ID="MedicationPhoneNumber_4">[phone]</td> [facility] ([facility]) 10 mg 03/12/2020 12:00:00 AM EST capsule [...] EST 300 mg by mouth completed <td ID="MedicationRxNorm_3">197026</td><td ID="MedicationMedication_3">Trileptal</td><td ID="MedicationRoute_3">by mouth</td><td ID="MedicationRouteConcept_3">C59292</td><td ID="MedicationStartDate_3">02/13/2020</td><td ID="MedicationStopDate_3">09/25/2020</td><td ID="MedicationDosageFrequency_3">twice a day</td><td ID="MedicationDuration_3">30</td><td ID="MedicationFormulaStrength_3">300 mg</td><td ID="MedicationDosageForm_3">tablet</td><td ID="MedicationDosageFormCode_3"></td><td ID="MedicationDosageDescription_3"></td><td ID="MedicationMedicationId_3">[id number]</td><td ID="MedicationAccount_3">[id number]</td><td ID="MedicationNpid_3">[id number]</td><td ID="MedicationAuthorFirstName_3">Lee Ann</td><td ID="MedicationAuthorLastName_3">Tom</td><td ID="MedicationTaxonomyCode_3">[id number]</td><td ID="MedicationTaxonomyDesc_3">Nurse Practitioner</td><td ID="MedicationPhoneNumber_3">[phone]</td> [facility] ([facility]) oxcarbazepine 300 MG Oral Tablet [Trileptal] Trileptal 02/13/2020 12:00:00 AM EST 300 mg by mouth completed <td ID="MedicationRxNorm_4">098245</td><td ID="MedicationMedication_4">Trileptal</td><td ID="MedicationRoute_4">by mouth</td><td ID="MedicationRouteConcept_4">A95754</td><td ID="MedicationStartDate_4">02/13/2020</td><td ID="MedicationStopDate_4">08/18/2020</td><td ID="MedicationDosageFrequency_4">twice a day</td><td ID="MedicationDuration_4">30</td><td ID="MedicationFormulaStrength_4">300 mg</td><td ID="MedicationDosageForm_4">tablet</td><td ID="MedicationDosageFormCode_4"></td><td ID="MedicationDosageDescription_4"></td><td ID="MedicationMedicationId_4">[id number]</td><td ID="MedicationAccount_4">[id number]</td><td ID="MedicationNpid_4">[id number]</td><td ID="MedicationAuthorFirstName_4">Lee Ann</td><td ID="MedicationAuthorLastName_4">Tom</td><td ID="MedicationTaxonomyCode_4">[id number]</td><td ID="MedicationTaxonomyDesc_4">Nurse Practitioner</td><td ID="MedicationPhoneNumber_4">[phone]</td> [facility] ([facility]) gabapentin 300 MG Oral Capsule gabapentin 02/13/2020 12:00:00 AM EST 300 mg by mouth completed <td ID="Medica tionRxNorm_2">011344</td><td ID="MedicationMedication_2">gabapentin</td><td ID="MedicationRoute_2">by mouth</td><td ID="MedicationRouteConcept_2">Y28597</td><td ID="MedicationStartDate_2">02/13/2020</td><td ID="MedicationStopDate_2">06/08/2020</td><td ID="MedicationDosageFrequency_2">at bedtime</td><td ID="MedicationDuration_2">30</td><td ID="MedicationFormulaStrength_2">300 mg</td><td ID="MedicationDosageForm_2">capsule</td><td ID="MedicationDosageFormCode_2"></td><td ID="MedicationDosageDescription_2"></td><td ID="MedicationMedicationId_2">[id number]</td><td ID="MedicationAccount_2">[id number]</td><td ID="MedicationNpid_2">[id number]</td><td ID="MedicationAuthorFirstName_2">Lee Ann</td><td ID="MedicationAuthorLastName_2">Tom</td><td ID="MedicationTaxonomyCode_2">[id number]</td><td ID="MedicationTaxonomyDesc_2">Nurse Practitioner</td><td ID="MedicationPhoneNumber_2">[phone]</td> [facility] ([facility]) gabapentin 300 MG Oral Capsule gabapentin 02/13/2020 12:00:00 AM EST 300 mg by mouth completed <td ID="Medica tionRxNorm_3">822997</td><td ID="MedicationMedication_3">gabapentin</td><td ID="MedicationRoute_3">by mouth</td><td ID="MedicationRouteConcept_3">I57912</td><td ID="MedicationStartDate_3">02/13/2020</td><td ID="MedicationStopDate_3">05/11/2020</td><td ID="MedicationDosageFrequency_3">at bedtime</td><td ID="MedicationDuration_3">30</td><td ID="MedicationFormulaStrength_3">300 mg</td><td ID="MedicationDosageForm_3">capsule</td><td ID="MedicationDosageFormCode_3"></td><td ID="MedicationDosageDescription_3"></td><td ID="MedicationMedicationId_3">[id number]</td><td ID="MedicationAccount_3">[id number]</td><td ID="MedicationNpid_3">[id number]</td><td ID="MedicationAuthorFirstName_3">Lee Ann</td><td ID="MedicationAuthorLastName_3">Tom</td><td ID="MedicationTaxonomyCode_3">[id number]</td><td ID="MedicationTaxonomyDesc_3">Nurse Practitioner</td><td ID="MedicationPhoneNumber_3">[phone]</td> [facility] ([facility]) oxcarbazepine 300 MG Oral Tablet [Trileptal] Trileptal 02/13/2020 12:00:00 AM EST 300 mg by mouth completed <td ID="MedicationRxNorm_6">578530</td><td ID="MedicationMedication_6">Trileptal</td><td ID="MedicationRoute_6">by mouth</td><td ID="MedicationRouteConcept_6">D13866</td><td ID="MedicationStartDate_6">02/13/2020</td><td ID="MedicationStopDate_6">03/14/2020</td><td ID="MedicationDosageFrequency_6">twice a day</td><td ID="MedicationDuration_6">30</td><td ID="MedicationFormulaStrength_6">300 mg</td><td ID="MedicationDosageForm_6">tablet</td><td ID="MedicationDosageFormCode_6"></td><td ID="MedicationDosageDescription_6"></td><td ID="MedicationMedicationId_6">[id number]</td><td ID="MedicationAccount_6">[id number]</td><td ID="MedicationNpid_6">[id number]</td><td ID="MedicationAuthorFirstName_6">Lee Ann</td><td ID="MedicationAuthorLastName_6">Tom</td><td ID="MedicationTaxonomyCode_6">[id number]</td><td ID="MedicationTaxonomyDesc_6">Nurse Practitioner</td><td ID="MedicationPhoneNumber_6">[phone]</td> [facility] ([facility]) Fluoxetine fluoxetine 02/13/2020 12:00:00 AM EST 10 mg by mouth completed <td ID="MedicationRxNorm_3"> 4031251</td><td ID="MedicationMedication_3">fluoxetine</td><td ID="MedicationRoute_3">by mouth</td><td ID="MedicationRouteConcept_3">J17408</td><td ID="MedicationStartDate_3">02/13/2020</td><td ID="MedicationStopDate_3">08/18/2020</td><td ID="MedicationDosageFrequency_3">every morning</td><td ID="MedicationDuration_3">30</td><td ID="MedicationFormulaStrength_3">10 mg</td><td ID="MedicationDosageForm_3">tablet</td><td ID="MedicationDosageFormCode_3"></td><td ID="MedicationDosageDescription_3"> </td><td ID="MedicationMedicationId_3">[id number]</td><td ID="MedicationAccount_3">[id number]</td><td ID="MedicationNpid_3">[id number]</td><td ID="MedicationAuthorFirstName_3">Lee Ann</td><td ID="MedicationAuthorLastName_3">Tom</td><td ID="MedicationTaxonomyCode_3">[id number]</td><td ID="MedicationTaxonomyDesc_3">Nurse Practitioner</td><td ID="MedicationPhoneNumber_3">[phone]</td> [facility] ([facility]) Fluoxetine fluoxetine 02/13/2020 12:00:00 AM EST 10 mg by mouth completed <td ID="MedicationRxNorm_4"> 6616555</td><td ID="MedicationMedication_4">fluoxetine</td><td ID="MedicationRoute_4">by mouth</td><td ID="MedicationRouteConcept_4">U48415</td><td ID="MedicationStartDate_4">02/13/2020</td><td ID="MedicationStopDate_4">09/25/2020</td><td ID="MedicationDosageFrequency_4">every morning</td><td ID="MedicationDuration_4">30</td><td ID="MedicationFormulaStrength_4">10 mg</td><td ID="MedicationDosageForm_4">tablet</td><td ID="MedicationDosageFormCode_4"></td><td ID="MedicationDosageDescription_4"> </td><td ID="MedicationMedicationId_4">46082</td><td ID="MedicationAccount_4">[id number]</td><td ID="MedicationNpid_4">[id number]</td><td ID="MedicationAuthorFirstName_4">Lee Ann</td><td ID="MedicationAuthorLastName_4">Tom</td><td ID="MedicationTaxonomyCode_4">[id number]</td><td ID="MedicationTaxonomyDesc_4">Nurse Practitioner</td><td ID="MedicationPhoneNumber_4">[phone]</td> [facility] ([facility]) Fluoxetine fluoxetine 02/13/2020 12:00:00 AM EST 10 mg by mouth completed <td ID="MedicationRxNorm_2"> 9354072</td><td ID="MedicationMedication_2">fluoxetine</td><td ID="MedicationRoute_2">by mouth</td><td ID="MedicationRouteConcept_2">B31968</td><td ID="MedicationStartDate_2">02/13/2020</td><td ID="MedicationStopDate_2">09/25/2020</td><td ID="MedicationDosageFrequency_2">every morning</td><td ID="MedicationDuration_2">30</td><td ID="MedicationFormulaStrength_2">10 mg</td><td ID="MedicationDosageForm_2">tablet</td><td ID="MedicationDosageFormCode_2"></td><td ID="MedicationDosageDescription_2"> </td><td ID="MedicationMedicationId_2">65550</td><td ID="MedicationAccount_2">[id number]</td><td ID="MedicationNpid_2">[id number]</td><td ID="MedicationAuthorFirstName_2">Lee Ann</td><td ID="MedicationAuthorLastName_2">Tom</td><td ID="MedicationTaxonomyCode_2">[id number]</td><td ID="MedicationTaxonomyDesc_2">Nurse Practitioner</td><td ID="MedicationPhoneNumber_2">[phone]</td> [facility] ([facility]) oxcarbazepine 300 MG Oral Tablet [Trileptal] Trileptal 02/13/2020 12:00:00 AM EST 300 mg by mouth completed <td ID="MedicationRxNorm_1">608264</td><td ID="MedicationMedication_1">Trileptal</td><td ID="MedicationRoute_1">by mouth</td><td ID="MedicationRouteConcept_1">E08721</td><td ID="MedicationStartDate_1">02/13/2020</td><td ID="MedicationStopDate_1">09/24/2020</td><td ID="MedicationDosageFrequency_1">twice a day</td><td ID="MedicationDuration_1">30</td><td ID="MedicationFormulaStrength_1">300 mg</td><td ID="MedicationDosageForm_1">tablet</td><td ID="MedicationDosageFormCode_1"></td><td ID="MedicationDosageDescription_1"></td><td ID="MedicationMedicationId_1">67832</td><td ID="MedicationAccount_1">[id number]</td><td ID="MedicationNpid_1">[id number]</td><td ID="MedicationAuthorFirstName_1">Lee Ann</td><td ID="MedicationAuthorLastName_1">Tom</td><td ID="MedicationTaxonomyCode_1">[id number]</td><td ID="MedicationTaxonomyDesc_1">Nurse Practitioner</td><td ID="MedicationPhoneNumber_1">[phone]</td> [facility] ([facility]) Fluoxetine 10 MG Oral Tablet fluoxetine 02/13/2020 12:00:00 AM EST 10 mg by mouth completed <td ID="Medica tionRxNorm_5">689924</td><td ID="MedicationMedication_5">fluoxetine</td><td ID="MedicationRoute_5">by mouth</td><td ID="MedicationRouteConcept_5">M77317</td><td ID="MedicationStartDate_5">02/13/2020</td><td ID="MedicationStopDate_5">03/14/2020</td><td ID="MedicationDosageFrequency_5">every morning</td><td ID="MedicationDuration_5">30</td><td ID="MedicationFormulaStrength_5">10 mg</td><td ID="MedicationDosageForm_5">tablet</td><td ID="MedicationDosageFormCode_5"></td><td ID="MedicationDosageDescription_5"> </td><td ID="MedicationMedicationId_5">34424</td><td ID="MedicationAccount_5">[id number]</td><td ID="MedicationNpid_5">[id number]</td><td ID="MedicationAuthorFirstName_5">Lee Ann</td><td ID="MedicationAuthorLastName_5">Tom</td><td ID="MedicationTaxonomyCode_5">[id number]</td><td ID="MedicationTaxonomyDesc_5">Nurse Practitioner</td><td ID="MedicationPhoneNumber_5">[phone]</td> [facility] ([facility] 300 mg 02/08/2020 12:00:00 AM EST capsule [...] 100 mg by mouth completed <td ID="Medica tionRxNorm_3">203441</td><td ID="MedicationMedication_3">gabapentin</td><td ID="MedicationRoute_3">by mouth</td><td ID="MedicationRouteConcept_3">U59625</td><td ID="MedicationStartDate_3">02/05/2020</td><td ID="MedicationStopDate_3">02/13/2020</td><td ID="MedicationDosageFrequency_3">twice a day</td><td ID="MedicationDuration_3"></td><td ID="MedicationFormulaStrength_3">100 mg</td><td ID="MedicationDosageForm_3">capsule</td><td ID="MedicationDosageFormCode_3"></td><td ID="MedicationDosageDescription_3">as directed</td><td ID="MedicationMedicationId_3">07046</td><td ID="MedicationAccount_3">[id number]</td><td ID="MedicationNpid_3">[id number]</td><td ID="MedicationAuthorFirstName_3">Tessie</td><td ID="MedicationAuthorLastName_3">[place]</td><td ID="MedicationTaxonomyCode_3">[id number]</td><td ID="MedicationTaxonomyDesc_3">Psychiatric/Mental Health</td><td ID="MedicationPhoneNumber_3">[phone]</td> [facility] ([facility]) 10 mg 02/03/2020 12:00:00 AM EST tablet [...] 50 mg by mouth completed <td ID="Me dicationRxNorm_7">671075</td><td ID="MedicationMedication_7">Seroquel</td><td ID="MedicationRoute_7">by mouth</td><td ID="MedicationRouteConcept_7">K27524</td><td ID="MedicationStartDate_7">01/16/2020</td><td ID="MedicationStopDate_7">04/13/2020</td><td ID="MedicationDosageFrequency_7">at bedtime</td><td ID="MedicationDuration_7">30</td><td ID="MedicationFormulaStrength_7">50 mg</td><td ID="MedicationDosageForm_7">tablet</td><td ID="MedicationDosageFormCode_7"></td><td ID="MedicationDosageDescription_7"></td><td ID="MedicationMedicationId_7">71096</td><td ID="MedicationAccount_7">[id number]</td><td ID="MedicationNpid_7">[id number]</td><td ID="MedicationAuthorFirstName_7">Lee Ann</td><td ID="MedicationAuthorLastName_7">Tom</td><td ID="MedicationTaxonomyCode_7">[id number]</td><td ID="MedicationTaxonomyDesc_7">Nurse Practitioner</td><td ID="MedicationPhoneNumber_7">[phone]</td> [facility] ([facility]) quetiapine 50 MG Oral Tablet [Seroquel] Seroquel 01/16/2020 12: 00:00 AM EDT 50 mg by mouth completed <td ID="Me dicationRxNorm_5">949683</td><td ID="MedicationMedication_5">Seroquel</td><td ID="MedicationRoute_5">by mouth</td><td ID="MedicationRouteConcept_5">F07537</td><td ID="MedicationStartDate_5">01/16/2020</td><td ID="MedicationStopDate_5">04/13/2020</td><td ID="MedicationDosageFrequency_5">at bedtime</td><td ID="MedicationDuration_5">30</td><td ID="MedicationFormulaStrength_5">50 mg</td><td ID="MedicationDosageForm_5">tablet</td><td ID="MedicationDosageFormCode_5"></td><td ID="MedicationDosageDescription_5"></td><td ID="MedicationMedicationId_5">96342</td><td ID="MedicationAccount_5">[id number]</td><td ID="MedicationNpid_5">[id number]</td><td ID="MedicationAuthorFirstName_5">Lee Ann</td><td ID="MedicationAuthorLastName_5">Tom</td><td ID="MedicationTaxonomyCode_5">[id number]</td><td ID="MedicationTaxonomyDesc_5">Nurse Practitioner</td><td ID="MedicationPhoneNumber_5">[phone]</td> [facility] ([facility]) quetiapine 50 MG Oral Tablet [Seroquel] Seroquel 01/16/2020 12: 00:00 AM EDT 50 mg by mouth completed <td ID="Me dicationRxNorm_3">198625</td><td ID="MedicationMedication_3">Seroquel</td><td ID="MedicationRoute_3">by mouth</td><td ID="MedicationRouteConcept_3">D23238</td><td ID="MedicationStartDate_3">01/16/2020</td><td ID="MedicationStopDate_3">03/16/2020</td><td ID="MedicationDosageFrequency_3">at bedtime</td><td ID="MedicationDuration_3">30</td><td ID="MedicationFormulaStrength_3">50 mg</td><td ID="MedicationDosageForm_3">tablet</td><td ID="MedicationDosageFormCode_3"></td><td ID="MedicationDosageDescription_3"></td><td ID="MedicationMedicationId_3">96629</td><td ID="MedicationAccount_3">[id number]</td><td ID="MedicationNpid_3">[id number]</td><td ID="MedicationAuthorFirstName_3">Lee Ann</td><td ID="MedicationAuthorLastName_3">Tom</td><td ID="MedicationTaxonomyCode_3">[id number]</td><td ID="MedicationTaxonomyDesc_3">Nurse Practitioner</td><td ID="MedicationPhoneNumber_3">[phone]</td> [facility] ([facility]) quetiapine 50 MG Oral Tablet [Seroquel] Seroquel 01/16/2020 12: 00:00 AM EDT 50 mg by mouth completed <td ID="Me dicationRxNorm_2">609174</td><td ID="MedicationMedication_2">Seroquel</td><td ID="MedicationRoute_2">by mouth</td><td ID="MedicationRouteConcept_2">C98278</td><td ID="MedicationStartDate_2">01/16/2020</td><td ID="MedicationStopDate_2">05/11/2020</td><td ID="MedicationDosageFrequency_2">at bedtime</td><td ID="MedicationDuration_2">30</td><td ID="MedicationFormulaStrength_2">50 mg</td><td ID="MedicationDosageForm_2">tablet</td><td ID="MedicationDosageFormCode_2"></td><td ID="MedicationDosageDescription_2"></td><td ID="MedicationMedicationId_2">28267</td><td ID="MedicationAccount_2">[id number]</td><td ID="MedicationNpid_2">[id number]</td><td ID="MedicationAuthorFirstName_2">Lee Ann</td><td ID="MedicationAuthorLastName_2">Tom</td><td ID="MedicationTaxonomyCode_2">[id number]</td><td ID="MedicationTaxonomyDesc_2">Nurse Practitioner</td><td ID="MedicationPhoneNumber_2">[phone]</td> [facility] ([facility]) 100 mg 01/15/2020 12:00:00 AM EDT tablet [...] 25 mg by mouth completed <td ID="Me dicationRxNorm_4">638992</td><td ID="MedicationMedication_4">Seroquel</td><td ID="MedicationRoute_4">by mouth</td><td ID="MedicationRouteConcept_4">X71737</td><td ID="MedicationStartDate_4">01/02/2020</td><td ID="MedicationStopDate_4">02/01/2020</td><td ID="MedicationDosageFrequency_4">at bedtime</td><td ID="MedicationDuration_4">30</td><td ID="MedicationFormulaStrength_4">25 mg</td><td ID="MedicationDosageForm_4">tablet</td><td ID="MedicationDosageFormCode_4"></td><td ID="MedicationDosageDescription_4"></td><td ID="MedicationMedicationId_4">97766</td><td ID="MedicationAccount_4">[id number]</td><td ID="MedicationNpid_4">[id number]</td><td ID="MedicationAuthorFirstName_4">Lee Ann</td><td ID="MedicationAuthorLastName_4">Tom</td><td ID="MedicationTaxonomyCode_4">[id number]</td><td ID="MedicationTaxonomyDesc_4">Nurse Practitioner</td><td ID="MedicationPhoneNumber_4">[phone]</td> [facility] ([facility]) 2 mg 12/21/2019 12:00:00 AM EDT tablet [...] 100 mg by mouth co mpleted <td ID="MedicationRxNorm_4">409912</td><td ID="MedicationMedication_4">Wellbutrin SR</td><td ID="MedicationRoute_4">by mouth</td><td ID="MedicationRouteConcept_4">H18483</td><td ID="MedicationStartDate_4">12/20/2019</td><td ID="MedicationStopDate_4">02/15/2020</td><td ID="MedicationDosageFrequency_4">every morning</td><td ID="MedicationDuration_4">30</td><td ID="MedicationFormulaStrength_4">100 mg</td><td ID="MedicationDosageForm_4">tablet sustained-release 12 hr</td><td ID="MedicationDosageFormCode_4"></td><td ID="MedicationDosageDescription_4"></td><td ID="MedicationMedicationId_4">90072</td><td ID="MedicationAccount_4">[id number]</td><td ID="MedicationNpid_4">[id number]</td><td ID="MedicationAuthorFirstName_4">Lee Ann</td><td ID="MedicationAuthorLastName_4">Tom</td><td ID="MedicationTaxonomyCode_4">[id number]</td><td ID="MedicationTaxonomyDesc_4"> Nurse Practitioner</td><td ID="MedicationPhoneNumber_4">[phone]</td> [facility] ([facility]) aripiprazole 2 MG Oral Tablet aripiprazole 12/20/2019 12:00:00 AM EDT 2 mg by mouth completed <td ID="Medica tionRxNorm_2">776504</td><td ID="MedicationMedication_2">aripiprazole</td><td ID="MedicationRoute_2">by mouth</td><td ID="MedicationRouteConcept_2">C92118</td><td ID="MedicationStartDate_2">12/20/2019</td><td ID="MedicationStopDate_2">01/02/2020</td><td ID="MedicationDosageFrequency_2">every morning</td><td ID="MedicationDuration_2">30</td><td ID="MedicationFormulaStrength_2">2 mg</td><td ID="MedicationDosageForm_2">tablet</td><td ID="MedicationDosageFormCode_2"></td><td ID="MedicationDosageDescription_2"> </td><td ID="MedicationMedicationId_2">20827</td><td ID="MedicationAccount_2">[id number]</td><td ID="MedicationNpid_2">[id number]</td><td ID="MedicationAuthorFirstName_2">Lee Ann</td><td ID="MedicationAuthorLastName_2">Tom</td><td ID="MedicationTaxonomyCode_2">[id number]</td><td ID="MedicationTaxonomyDesc_2">Nurse Practitioner</td><td ID="MedicationPhoneNumber_2">[phone]</td> [facility] ([facility]) 12 HR Bupropion Hydrochloride 100 MG Extended Release Oral Tablet [Wellbutrin] Wellbutrin SR 12/20/2019 12:00:00 AM EDT 100 mg by mouth co mpleted <td ID="MedicationRxNorm_2">414442</td><td ID="MedicationMedication_2">Wellbutrin SR</td><td ID="MedicationRoute_2">by mouth</td><td ID="MedicationRouteConcept_2">H14931</td><td ID="MedicationStartDate_2">12/20/2019</td><td ID="MedicationStopDate_2">02/13/2020</td><td ID="MedicationDosageFrequency_2">every morning</td><td ID="MedicationDuration_2">30</td><td ID="MedicationFormulaStrength_2">100 mg</td><td ID="MedicationDosageForm_2">tablet sustained-release 12 hr</td><td ID="MedicationDosageFormCode_2"></td><td ID="MedicationDosageDescription_2"></td><td ID="MedicationMedicationId_2">63618</td><td ID="MedicationAccount_2">[id number]</td><td ID="MedicationNpid_2">[id number]</td><td ID="MedicationAuthorFirstName_2">Tessie</td><td ID="MedicationAuthorLastName_2">Redd</td><td ID="MedicationTaxonomyCode_2">[id number]</td><td ID="MedicationTaxonomyDesc_2"> Psychiatric/Mental Health</td><td ID="MedicationPhoneNumber_2">[phone]</td> [facility] ([facility]) 12 HR Bupropion Hydrochloride 100 MG Extended Release Oral Tablet [Wellbutrin] Wellbutrin SR 12/20/2019 12:00:00 AM EDT 100 mg by mouth co mpleted <td ID="MedicationRxNorm_3">177118</td><td ID="MedicationMedication_3">Wellbutrin SR</td><td ID="MedicationRoute_3">by mouth</td><td ID="MedicationRouteConcept_3">J91808</td><td ID="MedicationStartDate_3">12/20/2019</td><td ID="MedicationStopDate_3">02/01/2020</td><td ID="MedicationDosageFrequency_3">every morning</td><td ID="MedicationDuration_3">30</td><td ID="MedicationFormulaStrength_3">100 mg</td><td ID="MedicationDosageForm_3">tablet sustained-release 12 hr</td><td ID="MedicationDosageFormCode_3"></td><td ID="MedicationDosageDescription_3"></td><td ID="MedicationMedicationId_3">20403</td><td ID="MedicationAccount_3">[id number]</td><td ID="MedicationNpid_3">[id number]</td><td ID="MedicationAuthorFirstName_3">Lee Ann</td><td ID="MedicationAuthorLastName_3">Tom</td><td ID="MedicationTaxonomyCode_3">[id number]</td><td ID="MedicationTaxonomyDesc_3"> Nurse Practitioner</td><td ID="MedicationPhoneNumber_3">[phone]</td> [facility] ([facility]) 300 mg 12/19/2019 12:00:00 AM EDT capsule [...] 5 mg by mouth completed <td ID="MedicationRx Norm_2">678993</td><td ID="MedicationMedication_2">dextroamphetamine-amphetamine</td><td ID="MedicationRoute_2">by mouth</td><td ID="MedicationRouteConcept_2"> H90289</td><td ID="MedicationStartDate_2">11/13/2019</td><td ID="MedicationStopDate_2">12/13/2019</td><td ID="MedicationDosageFrequency_2">twice a day</td><td ID="MedicationDuration_2">30</td><td ID="MedicationFormulaStrength_2">5 mg</td><td ID="MedicationDosageForm_2">tablet</td><td ID="MedicationDosageFormCode_2"></td><td ID="MedicationDosageDescription_2">as directed</td><td ID="MedicationMedicationId_2">36144</td><td ID="MedicationAccount_2">[id number]</td><td ID="MedicationNpid_2">[id number]</td><td ID="MedicationAuthorFirstName_2">Lee Ann</td><td ID="MedicationAuthorLastName_2">Tom</td><td ID="MedicationTaxonomyCode_2">[id number]</td><td ID="MedicationTaxonomyDesc_2"> Nurse Practitioner</td><td ID="MedicationPhoneNumber_2">[phone]</td> [facility] ([facility]) 5 mg 11/13/2019 12:00:00 AM EDT tablet [...] 5 mg by mouth completed <td ID="MedicationRx Norm_3">606129</td><td ID="MedicationMedication_3">dextroamphetamine-amphetamine</td><td ID="MedicationRoute_3">by mouth</td><td ID="MedicationRouteConcept_3"> [id number]</td><td ID="MedicationStartDate_3">11/13/2019</td><td ID="MedicationStopDate_3">12/13/2019</td><td ID="MedicationDosageFrequency_3">twice a day</td><td ID="MedicationDuration_3">30</td><td ID="MedicationFormulaStrength_3">5 mg</td><td ID="MedicationDosageForm_3">tablet</td><td ID="MedicationDosageFormCode_3"></td><td ID="MedicationDosageDescription_3">as directed</td><td ID="MedicationMedicationId_3">[id number]</td><td ID="MedicationAccount_3">[id number]</td><td ID="MedicationNpid_3">[id number]</td><td ID="MedicationAuthorFirstName_3">Lee Ann</td><td ID="MedicationAuthorLastName_3">Tom</td><td ID="MedicationTaxonomyCode_3">[id number]</td><td ID="MedicationTaxonomyDesc_3"> Nurse Practitioner</td><td ID="MedicationPhoneNumber_3">[phone]</td> [facility] ([facility] 5 mg 11/01/2019 12:00:00 AM EDT tablet 14 TAKE ONE TABLET BY MOUTH TWICE A DAY MAXIMUM DAILY DOSE = 2 TAKE ONE TABLET BY MOUTH TWICE A DAY MAX IMUM DAILY DOSE = 2 SOLD: 11/03/2019 [facility] olanzapine 5 MG Oral Tablet olanzapine 10/09/2019 12:00:00 AM EDT 5 mg by mouth completed <td ID="Medica tionRxNorm_1">[id number]</td><td ID="MedicationMedication_1">olanzapine</td><td ID="MedicationRoute_1">by mouth</td><td ID="MedicationRouteConcept_1">[id number]</td><td ID="MedicationStartDate_1">10/09/2019</td><td ID="MedicationStopDate_1">12/08/2019</td><td ID="MedicationDosageFrequency_1">at bedtime</td><td ID="MedicationDuration_1">30</td><td ID="MedicationFormulaStrength_1">5 mg</td><td ID="MedicationDosageForm_1">tablet</td><td ID="MedicationDosageFormCode_1"></td><td ID="MedicationDosageDescription_1"></td><td ID="MedicationMedicationId_1">[id number]</td><td ID="MedicationAccount_1">[id number]</td><td ID="MedicationNpid_1">[id number]</td><td ID="MedicationAuthorFirstName_1">Lee Ann</td><td ID="MedicationAuthorLastName_1">Tom</td><td ID="MedicationTaxonomyCode_1">[id number]</td><td ID="MedicationTaxonomyDesc_1">Nurse Practitioner</td><td ID="MedicationPhoneNumber_1">[phone]</td> [facility] ([facility]) Insurance Providers Payer name Policy type / Coverage type Policy ID Covered constitution party ID Covered constitution party's relationship to sagastume Policy Sagastume Plan Information [facility] Health Maintenance Organization ([facility]) [id number] Self [id number] [facility] Community Plan Commercial [id number] Self [id number] [facility] Community Plan Commercial [id number] Self [id number] [facility] [id number] SP [id number] [facility] [id number] SP [id number] [facility] [id number] SP [id number] [facility] [id number] SP [id number] SELF PAY [facility] [id number] SP [id number] ANSI-Medicaid [id number] ANSI-Medicaid [id number] ANSI-Medicaid [id number] ANSI-Medicaid [id number] ANSI-Medicaid [id number] ANSI-Medicaid [id number] [facility] [id number] SP [id number] ANSI-Medicaid [id number] ANSI-Medicaid [id number] [facility] [id number] SP [id number] [facility] PLAN [facility] [id number] SP [id number] [employer] [id number] SP [id number] 1 [employer] [facility] Commercial [id number] [facility] [id number] [facility] PLAN [facility] [id number] [employer] [facility] [id number] S [id number] [facility] [id number] SP [id number] [facility] Community Plan P [id number] S [id number] Medicaid S [id number] S [id number] ANSI-Medicaid [id number] ANSI-Medicaid [id number] ANSI-Medicaid [id number] ANSI-Medicaid [id number] Problems, Conditions, and Diagnoses Code Display Name Description Problem Type Effective Dates Data Source(s) 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 Condition 11/14/2020 12:00:00 AM EDT [facility] ([facility]) F50.00 Anorexia nervosa, unspecified Anorexia nervosa, unspec ified Condition 11/14/2020 12:00:00 AM EDT [facility] ([facility]) F33.2 Major depressive disorder, recurrent 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 Major Depressive Disorder, Recurrent episode, Severe Condition 0 11/14/2020 12:00:00 AM EDT [facility] ([facility]) F43.12 Post-traumatic stress disorder, chronic Post-traumatic stress disorder, chronic Condition 11/14/2020 12:00:00 AM EDT [facility] ([facility]) F90.2 Attention-deficit hyperactivity disorder , combined type Attention- Deficit/Hyperactivity Disorder, Combined presentation Condition 11/30/2019 12:00:00 AM EDT [facility] ([facility]) F31.32 Bipolar disorder, current episode depres sed, moderate Bipolar I Disorder, Current or most recent episode depressed, Moderate Condition 12:00:00 AM EDT [facility] ([facility]) Surgeries/Procedures Procedure Description Date Indications Data Source(s) OFFICE OUTPATIENT VISIT 15 MINUTES 11/14 12:00:00 AM EDT - 11/14/2020 12:00:00 AM EDT [facility] ([facility]) OFFICE OUTPATIENT VISIT 15 MINUTES 11/14/2020 12:00:00 AM EDT [facility] ([facility]) EAR IRRIGATION 10/15/2020 12:00:00 AM EDT eCW1 ([facility]) OFFICE OUTPATIENT VISIT 15 MINUTES 09/24 12:00:00 AM EDT - 09/24/2020 12:00:00 AM EDT [facility] ([facility]) OFFICE OUTPATIENT VISIT 15 MINUTES 09/24/2020 12:00:00 AM EDT [facility] ([facility]) OFFICE OUTPATIENT VISIT 15 MINUTES 08/26 12:00:00 AM EDT - 08/26/2020 12:00:00 AM EDT [facility] ([facility]) OFFICE OUTPATIENT VISIT 15 MINUTES 08/26/2020 12:00:00 AM EDT [facility] ([facility]) Brief Individual Psychotherapy - 30 min 08/15/2020 12:00:00 AM EDT - 08/15/2020 12:00:00 AM EDT [facility] ([facility]) Brief Individual Psychotherapy - 30 min 08/15/2020 12: 00:00 AM EDT [facility] ([facility]) Extended Individual Psychotherapy - 45 min 07/24/2020 12:00:00 AM EDT - 07/24/2020 12:00:00 AM EDT [facility] ([facility]) Extended Individual Psychotherapy - 45 min 12:00:00 AM EDT [facility] ([facility]) Extended Individual Psychotherapy - 45 min 07/09/2020 12:00:00 AM EDT - 07/09/2020 12:00:00 AM EDT [facility] ([facility]) Extended Individual Psychotherapy - 45 min 12:00:00 AM EDT [facility] ([facility]) Extended Individual Psychotherapy - 45 min 06/25/2020 12:00:00 AM EDT - 06/25/2020 12:00:00 AM EDT [facility] ([facility]) Extended Individual Psychotherapy - 45 min 12:00:00 AM EDT [facility] ([facility]) Brief Individual Psychotherapy - 30 min 05/31/2020 12:00:00 AM EST - 05/31/2020 12:00:00 AM EST [facility] ([facility]) Brief Individual Psychotherapy - 30 min 05/31/2020 12: 00:00 AM EST [facility] ([facility]) [id number]"Psychotherapy 12:00:00 AM EST - 05/17/2020 12:00:00 AM EST [facility] ([facility]) [id number]"Psychotherapy 05/17/2020 12:00:00 AM EST [facility] ([facility]) Extended Individual Psychotherapy - 45 min 05/07/2020 12:00:00 AM EST - 05/07/2020 12:00:00 AM EST [facility] ([facility]) Extended Individual Psychotherapy - 45 min 12:00:00 AM EST [facility] ([facility]) MHC Telemed E/M Lvl 3--Est pt 05/07/2020 12:00:00 AM EST - 05/07/2020 12:00:00 AM EST [facility] ([facility]) Psychotherapy ADD ON - 30 Minutes 05/07/2020 12:00:00 AM EST [facility] ([facility]) MHC Telemed E/M Lvl 3--Est pt 05/07/2020 12:00:[address] [facility] ([facility]) Extended Individual Psychotherapy - 45 min 04/19/2020 12:00:00 AM EST - 04/19/2020 12:00:00 AM EST [facility] ([facility]) Extended Individual Psychotherapy - 45 min 12:00:00 AM EST [facility] ([facility]) OFFICE OUTPATIENT VISIT 15 MINUTES 04/09 12:00:00 AM EST - 04/09/2020 12:00:00 AM EST [facility] ([facility]) OFFICE OUTPATIENT VISIT 15 MINUTES 04/09/2020 12:00:00 AM EST [facility] ([facility]) Extended Individual Psychotherapy - 45 min 04/02/2020 12:00:00 AM EST - 04/02/2020 12:00:00 AM EST [facility] ([facility]) Extended Individual Psychotherapy - 45 min 12:00:00 AM EST [facility] ([facility]) OFFICE OUTPATIENT VISIT 15 MINUTES 03/12 12:00:00 AM EST - 03/12/2020 12:00:00 AM EST [facility] ([facility]) OFFICE OUTPATIENT VISIT 15 MINUTES 03/12/2020 12:00:00 AM EST [facility] ([facility]) OFFICE OUTPATIENT VISIT 15 MINUTES 02/12 12:00:00 AM EST - 02/13/2020 12:00:00 AM EST [facility] ([facility]) OFFICE OUTPATIENT VISIT 15 MINUTES 02/13/2020 12:00:00 AM EST [facility] ([facility]) TEMPMHCTelemed--Crisis Brief 01/23/2020 12:00:00 AM EST - 01/23/2020 12:00:00 AM EST [facility] ([facility]) TEMPMHCTelemed--Crisis Brief 01/23/2020 12:00:00 AM ES T [facility] ([facility]) Extended Individual Psychotherapy - 45 min 01/23/2020 12:00:00 AM EST - 01/23/2020 12:00:00 AM EST [facility] ([facility]) Extended Individual Psychotherapy - 45 min 0 12:00:00 AM EST [facility] ([facility]) OFFICE OUTPATIENT VISIT 15 MINUTES 01/15 12:00:00 AM EDT - 01/16/2020 12:00:00 AM EDT [facility] ([facility]) OFFICE OUTPATIENT VISIT 15 MINUTES 01/16/2020 12:00:00 AM EDT [facility] ([facility]) OFFICE OUTPATIENT VISIT 15 MINUTES 01/01 12:00:00 AM EDT - 01/02/2020 12:00:00 AM EDT [facility] ([facility]) OFFICE OUTPATIENT VISIT 15 MINUTES 01/02/2020 12:00:00 AM EDT [facility] ([facility]) Extended Individual Psychotherapy - 45 min 12/26/2019 12:00:00 AM EDT - 12/26/2019 12:00:00 AM EDT [facility] ([facility]) Extended Individual Psychotherapy - 45 min 0 12:00:00 AM EDT [facility] ([facility]) OFFICE OUTPATIENT VISIT 15 MINUTES 12/19 12:00:00 AM EDT - 12/20/2019 12:00:00 AM EDT [facility] ([facility]) Psychotherapy ADD ON - 30 Minutes 12/20/2019 12:00:00 AM EDT [facility] ([facility]) OFFICE OUTPATIENT VISIT 15 MINUTES 12/20/2019 12:00:00 AM EDT [facility] ([facility]) Brief Individual Psychotherapy - 30 min 12/19/2019 12:00:00 AM EDT - 12/19/2019 12:00:00 AM EDT [facility] ([facility]) Brief Individual Psychotherapy - 30 min 12/19/2019 12: 00:00 AM EDT [facility] ([facility]) Extended Individual Psychotherapy - 45 min 12/11/2019 12:00:00 AM EDT - 12/11/2019 12:00:00 AM [facility] Extended Individual Psychotherapy - 45 min 0 12:00:00 AM [facility] Extended Individual Psychotherapy - 45 min 11/30/2019 12:00:00 AM EDT - 11/30/2019 12:00:00 AM EDT [facility] ([facility]) Extended Individual Psychotherapy - 45 min 0 12:00:00 AM EDT [facility] ([facility]) Results ID Date Data Source CHLAMYDIA, GC & TRICH AMP 11/07/2020 12:00:00 AM EDT eCW1 ([facility]) Name Value Range Interpretation Code Description Data Angie rce(s) Supporting Document(s) NOT DETECTED NEGATIVE Trichomonas vaginalis ( AMP) eCW1 ([facility]) ID Date Data Source PAP REQUEST FOR SERVICE 11/07/2020 12:00:00 AM EDT eCW1 ([facility]) Name Value Range Interpretation Code Description Data Angie rce(s) Supporting Document(s) PAP REQUEST FOR SERVICE eCW1 ( [facility]) Procedure Social History Code Duration Value Status Description Data Source(s ) Smoking 11/14/2020 12:00:00 AM EDT Unknown if ever smoked comp leted Unknown if ever smoked [facility] ([facility]) Smoking 11/07/2020 12:00:00 AM EDT Never Smoker completed Never S moker eCW1 ([facility]) Smoking 10/15/2020 12:00:00 AM EDT Never Smoker completed Never S moker eCW1 ([facility]) Smoking 10/15/2020 12:00:00 AM EDT Never Smoker completed Never S moker eCW1 ([facility]) Smoking 09/24/2020 12:00:00 AM EDT Unknown if ever smoked comp leted Unknown if ever smoked [facility] ([facility]) Smoking 08/26/2020 12:00:00 AM EDT Unknown if ever smoked comp leted Unknown if ever smoked [facility] ([facility]) Smoking 08/15/2020 12:00:00 AM EDT Unknown if ever smoked comp leted Unknown if ever smoked [facility] ([facility]) Smoking 07/24/2020 12:00:00 AM EDT Unknown if ever smoked comp leted Unknown if ever smoked [facility] ([facility]) Smoking 07/09/2020 12:00:00 AM EDT Unknown if ever smoked comp leted Unknown if ever smoked [facility] ([facility]) Smoking 06/25/2020 12:00:00 AM EDT Unknown if ever smoked comp leted Unknown if ever smoked [facility] ([facility]) Smoking 05/31/2020 12:00:00 AM EST Unknown if ever smoked comp leted Unknown if ever smoked [facility] ([facility]) Smoking 05/17/2020 12:00:00 AM EST Unknown if ever smoked comp leted Unknown if ever smoked [facility] ([facility]) Smoking 05/07/2020 12:00:00 AM EST Unknown if ever smoked comp leted Unknown if ever smoked [facility] ([facility]) Smoking 04/19/2020 12:00:00 AM EST Unknown if ever smoked comp leted Unknown if ever smoked [facility] ([facility]) Smoking 04/09/2020 12:00:00 AM EST Unknown if ever smoked comp leted Unknown if ever smoked [facility] ([facility]) Smoking 04/02/2020 12:00:00 AM EST Unknown if ever smoked comp leted Unknown if ever smoked [facility] ([facility]) Smoking 03/12/2020 12:00:00 AM EST Unknown if ever smoked comp leted Unknown if ever smoked [facility] ([facility]) Smoking 02/13/2020 12:00:00 AM EST Unknown if ever smoked comp leted Unknown if ever smoked [facility] ([facility]) Smoking 01/23/2020 12:00:00 AM EST Unknown if ever smoked comp leted Unknown if ever smoked [facility] ([facility]) Smoking 01/16/2020 12:00:00 AM EDT Unknown if ever smoked comp leted Unknown if ever smoked [facility] ([facility]) Smoking 01/02/2020 12:00:00 AM EDT Unknown if ever smoked comp leted Unknown if ever smoked [facility] ([facility]) Smoking 12/26/2019 12:00:00 AM EDT Unknown if ever smoked comp leted Unknown if ever smoked [facility] ([facility]) Smoking 12/20/2019 12:00:00 AM EDT Unknown if ever smoked comp leted Unknown if ever smoked [facility] ([facility]) Smoking 12/19/2019 12:00:00 AM EDT Unknown if ever smoked comp leted Unknown if ever smoked [facility] ([facility]) Smoking 12/11/2019 12:00:00 AM EDT Unknown if ever smoked comp leted Unknown if ever smoked [facility] ([facility]) Smoking 11/30/2019 12:00:00 AM EDT Unknown if ever smoked comp leted Unknown if ever smoked [facility] ([facility]) Vital Signs ID Date Data Source UNK Name Value Range Interpretation Code Description Data Source(s) Body weight 140 [lb_av] 140 [lb_av] eCW1 ([facility]) Body height 63 [in_i] 63 [in_i] eCW1 ([facility]) Body mass index (BMI) [Ratio] 24.8 kg/m2 24.8 k g/m2 eCW1 ([facility]) Systolic blood pressure 102 mm[Hg] 102 mm[Hg] e CW1 ([facility]) Diastolic blood pressure 68 mm[Hg] 68 mm[Hg] eCW1 ([facility]) Body weight 137 [lb_av] 137 [lb_av] eCW1 ([facility]) Body height 63 [in_i] 63 [in_i] eCW1 ([facility]) Body mass index (BMI) [Ratio] 24.27 kg/m2 24.27 kg/m2 eCW1 ([facility]) Heart rate 77 /min 77 /min eCW1 ([facility]) Respiratory rate 18 /min 18 /min eCW1 ([facility]) Body temperature 98.1 [degF] 98.1 [degF] eCW1 ( [facility]) Systolic blood pressure 110 mm[Hg] 110 mm[Hg] e CW1 ([facility]) Diastolic blood pressure 70 mm[Hg] 70 mm[Hg] eCW1 ([facility]) Body height 0.00 in Normal (applies to non-numeric resu lts) 0.00 in [facility] ([facility]) Body weight Measured 0.00 lbs Normal (applies to n on-numeric results) 0.00 lbs [facility] ([facility]) Body mass index (BMI) [Ratio] 0.00 kg/m2 No rmal (applies to non-numeric results) 0.00 kg/m2 [facility] ([facility]) Systolic blood pressure 0 mm[Hg] Normal (applies t o non-numeric results) 0 mm[Hg] [facility] ([facility]) Diastolic blood pressure 0 mm[Hg] Normal (applies to non-numeric results) 0 mm[Hg] [facility] ([facility]) Body height 0.00 in Normal (applies to non-numeric resu lts) 0.00 in [facility] ([facility]) Body weight Measured 0.00 lbs Normal (applies to n on-numeric results) 0.00 lbs [facility] ([facility]) Body mass index (BMI) [Ratio] 0.00 kg/m2 No rmal (applies to non-numeric results) 0.00 kg/m2 [facility] ([facility]) Systolic blood pressure 0 mm[Hg] Normal (applies t o non-numeric results) 0 mm[Hg] [facility] ([facility]) Diastolic blood pressure 0 mm[Hg] Normal (applies to non-numeric results) 0 mm[Hg] [facility] ([facility]) Body height 0.00 in Normal (applies to non-numeric resu lts) 0.00 in [facility] ([facility]) Body weight Measured 0.00 lbs Normal (applies to n on-numeric results) 0.00 lbs [facility] ([facility]) Body mass index (BMI) [Ratio] 0.00 kg/m2 No rmal (applies to non-numeric results) 0.00 kg/m2 [facility] ([facility]) Systolic blood pressure 0 mm[Hg] Normal (applies t o non-numeric results) 0 mm[Hg] [facility] ([facility]) Diastolic blood pressure 0 mm[Hg] Normal (applies to non-numeric results) 0 mm[Hg] [facility] ([facility]) Body height 0.00 in Normal (applies to non-numeric resu lts) 0.00 in [facility] ([facility]) Body weight Measured 0.00 lbs Normal (applies to n on-numeric results) 0.00 lbs [facility] ([facility]) Body mass index (BMI) [Ratio] 0.00 kg/m2 No rmal (applies to non-numeric results) 0.00 kg/m2 [facility] ([facility]) Systolic blood pressure 0 mm[Hg] Normal (applies t o non-numeric results) 0 mm[Hg] [facility] ([facility]) Diastolic blood pressure 0 mm[Hg] Normal (applies to non-numeric results) 0 mm[Hg] [facility] ([facility]) Body height 0.00 in Normal (applies to non-numeric resu lts) 0.00 in [facility] ([facility]) Body weight Measured 0.00 lbs Normal (applies to n on-numeric results) 0.00 lbs [facility] ([facility]) Body mass index (BMI) [Ratio] 0.00 kg/m2 No rmal (applies to non-numeric results) 0.00 kg/m2 [facility] ([facility]) Systolic blood pressure 0 mm[Hg] Normal (applies t o non-numeric results) 0 mm[Hg] [facility] ([facility]) Diastolic blood pressure 0 mm[Hg] Normal (applies to non-numeric results) 0 mm[Hg] [facility] ([facility]) Body height 0.00 in Normal (applies to non-numeric resu lts) 0.00 in [facility] ([facility]) Body weight Measured 0.00 lbs Normal (applies to n on-numeric results) 0.00 lbs [facility] ([facility]) Body mass index (BMI) [Ratio] 0.00 kg/m2 No rmal (applies to non-numeric results) 0.00 kg/m2 [facility] Systolic blood pressure 0 mm[Hg] Normal (applies t o non-numeric results) 0 mm[Hg] [facility] ([facility]) Diastolic blood pressure 0 mm[Hg] Normal (applies to non-numeric results) 0 mm[Hg] [facility] ([facility]) Body mass index (BMI) [Ratio] 0.00 kg/m2 No rmal (applies to non-numeric results) 0.00 kg/m2 [facility]) Body height 0.00 in Normal (applies to non-numeric resu lts) 0.00 in [facility] ([facility]) Body weight Measured 0.00 lbs Normal (applies to n on-numeric results) 0.00 lbs [facility] ([facility]) Systolic blood pressure 0 mm[Hg] Normal (applies t o non-numeric results) 0 mm[Hg] [facility] ([facility]) Diastolic blood pressure 0 mm[Hg] Normal (applies to non-numeric results) 0 mm[Hg] [facility] ([facility]) Patient Treatment Plan of Care Planned Activity Planned Date Details Description Data Source (s) Hydrocortisone 25 MG/ML Topical Cream 10/15/2020 12:00:00 AM EDT eCW1 ([facility]) Docusate Sodium 100 MG Oral Capsule [Colace] 10/15/2020 12:00:00 AM EDT eCW1 ([facility]) Hydrocortisone 25 MG/ML Topical Cream 10/15/2020 12:00:00 AM EDT eCW1 ([facility]) Docusate Sodium 100 MG Oral Capsule [Colace] 10/15/2020 12:00:00 AM EDT eCW1 ([facility])
[2021-01-02] MEDS ORDERED: ONDANSETRON 4MG/2ML VIAL IV ONE (01:05)
[2021-01-02 02:28] VITALS: BP 142/85
== END 2021-01-02 02:32 | disposition home or self-care (01) ==
LOC: M ED 15:46
DX: R19.7 Diarrhea, unspecified (principal); R50.9 Fever, unspecified; R05.9 Cough, unspecified; U07.1 COVID-19; F31.9 Bipolar disorder, unspecified; Z79.899 Other long term (current) drug therapy
CPT/HCPCS: 87631; 96361; 96374; 96375; 99284; J1200; J1885; J2405

== ENCOUNTER → 2021-11-12 | Outpatient (CLI) | payer OTHER ==
[~2021-11-12] MED LIST changes: +FLUO10CA18; +GABA-282; +OXCA300T14
[2021-11-12 13:50] LABS: HEMOGLOBIN 12.9 g/dl (12.0-15.5); MEAN CORPUSCULAR HEMOGLOBIN 29.1 pg (27.0-33.0); MEAN CORPUSCULAR HGB CONC 32.3 g/dl (32.0-36.5); MEAN CORPUSCULAR VOLUME 90.1 fl (80.0-96.0); PLATELET COUNT, AUTOMATED 198 10^3/uL (150-450); RED BLOOD COUNT 4.44 10^6/uL (4.00-5.40); WHITE BLOOD COUNT 4.5 10^3/uL (4.0-10.0)
[2021-11-12 14:32] LABS: ALBUMIN 3.9 GM/DL (3.2-5.2); ALT/SGPT 23 U/L (12-78); BILIRUBIN,TOTAL < 0.1 MG/DL (0.2-1.0); BLOOD UREA NITROGEN 9 MG/DL (7-18); CALCIUM LEVEL 9.6 MG/DL (8.5-10.1); CARBON DIOXIDE LEVEL 26 MEQ/L (21-32); CHLORIDE LEVEL 104 MEQ/L (98-107); CREATININE FOR GFR 0.52 MG/DL (0.55-1.30); GLOMERULAR FILTRATION RATE > 60.0 (>60); GLUCOSE, FASTING 90 MG/DL (70-100); POTASSIUM SERUM 4.2 MEQ/L (3.5-5.1); SODIUM LEVEL 137 MEQ/L (136-145); TOTAL PROTEIN 7.2 GM/DL (6.4-8.2)
[2021-11-12 15:56] LABS: HEMOGLOBIN A1c 5.7 %
== END ==
LOC: M PLALAB 09:32
PROVIDERS: ATTEND Internal Medicine Hematology
DX: Z01.818 Encounter for other preprocedural examination (principal)

== ENCOUNTER → 2021-11-16 | Outpatient (CLI) | payer OTHER | LOC: M LABSMTC 10:40 | PROVIDERS: ATTEND Surgery | DX: Z01.818 Encounter for other preprocedural examination (principal); Z11.52 Encounter for screening for COVID-19 ==

== ENCOUNTER → 2022-07-10 | Outpatient (REF) | payer OTHER | LOC: M PLALAB 14:07 | PROVIDERS: ATTEND Nurse Practitioner Family | DX: Z11.3 Encounter for screening for infections with a predominantly sexual mode of transmission (principal); Z53.8 Procedure and treatment not carried out for other reasons ==

== ENCOUNTER → 2023-03-24 | Outpatient (CLI) | payer OTHER ==
[~2023-03-24] MED LIST changes: +LORA1TAB23; -LORA1TAB4
[2023-03-24 14:16] LABS: APPEARANCE, URINE HAZY (CLEAR); BACTERIA, URINE AUTO NEGATIVE (NEGATIVE); BILIRUBIN, URINE AUTO NEGATIVE (NEGATIVE); BLOOD, URINE BLOOD NEGATIVE (NEGATIVE); COLOR, URINE YELLOW (YELLOW); GLUCOSE, URINE (UA) AUTO NEGATIVE (NEGATIVE); KETONE, URINE AUTO NEGATIVE (NEGATIVE); LEUKOCYTE ESTERASE, URINE AUTO NEGATIVE (NEGATIVE); MUCUS, URINE SMALL (NEGATIVE); NITRITE, URINE AUTO NEGATIVE (NEGATIVE); PROTEIN, URINE AUTO NEGATIVE (NEGATIVE); RBC, URINE AUTO 0 /HPF (0-3); SPECIFIC GRAVITY URINE AUTO 1.025 (1.002-1.035); SQUAMOUS EPITHELIAL CELL UR AU 6 /HPF (0-6); UROBILINOGEN, URINE AUTO 0.2 mg/dL (0.0-2.0); WBC, URINE AUTO 2 /HPF (0-3)
[2023-03-24 14:18] LABS: BASO % 0.6 % (0.0-1.0); EOS # 0.1 10^3/uL (0.0-0.5); EOS % 1.2 % (0.0-3.0); HEMATOCRIT 41.6 % (36.0-47.0); HEMOGLOBIN 13.2 g/dl (12.0-15.5); LYMPH # 1.8 10^3/uL (1.5-5.0); LYMPH % 35.9 % (24.0-44.0); MEAN CORPUSCULAR HEMOGLOBIN 29.1 pg (27.0-33.0); MEAN CORPUSCULAR HGB CONC 31.7 g/dl (32.0-36.5); MEAN CORPUSCULAR VOLUME 91.8 fl (80.0-96.0); MONO # 0.4 10^3/uL (0.0-0.8); MONO % 8.6 % (2.0-8.0); NEUTROPHILS # 2.7 10^3/uL (1.5-8.5); NEUTROPHILS % 53.5 % (36.0-66.0); PLATELET COUNT, AUTOMATED 187 10^3/uL (150-450); RED BLOOD COUNT 4.53 10^6/uL (4.00-5.40)
[2023-03-24 14:24] LABS: ERYTHROCYTE SEDIMENTATION RATE 9 mm/hr (0-20)
[2023-03-24 14:48] LABS: C REACTIVE PROTEIN QUANTITATIV < 0.40 MG/DL (<1.0)
[2023-03-24 14:50] LABS: ALBUMIN 4.2 G/DL (3.2-5.2); ALKALINE PHOSPHATASE 49 U/L (46-116); ALT/SGPT 10 U/L (7.0-40); AST/SGOT 9 U/L (<34); BILIRUBIN,TOTAL 0.4 MG/DL (0.3-1.2); BLOOD UREA NITROGEN 7 MG/DL (9-23); CALCIUM LEVEL 9.2 MG/DL (8.5-10.1); CARBON DIOXIDE LEVEL 28 MMOL/L (20-31); CHLORIDE LEVEL 106 MMOL/L (98-107); CREATININE FOR GFR 0.53 MG/DL (0.55-1.30); GLOMERULAR FILTRATION RATE > 60.0 (>60); GLUCOSE, FASTING 87 MG/DL (60-100); SODIUM LEVEL 138 MMOL/L (136-145)
[2023-03-24 14:53] LABS: THYROID STIMULATING HORMONE 1.163 uIU/ML (0.55-4.78)
[2023-03-24 15:22] LABS: HIV 1&2 SCREEN NEGATIVE (NEGATIVE)
[2023-03-24 15:30] LABS: HEPATITIS C VIRUS ABY INDEX 0.07 INDEX (<0.8)
[2023-03-24 15:53] LABS: CHLAMYDIA DNA AMPLIFICATION NEGATIVE (NEGATIVE); GC DNA AMPLIFICATION NEGATIVE (NEGATIVE)
== END ==
LOC: M PLALAB 11:12
PROVIDERS: ATTEND Family Medicine
DX: R10.2 Pelvic and perineal pain (principal); R19.5 Other fecal abnormalities; R63.4 Abnormal weight loss

== ENCOUNTER → 2023-03-26 | Outpatient (CLI) | payer OTHER | LOC: M RAD 12:05 | PROVIDERS: ATTEND Family Medicine | DX: R10.2 Pelvic and perineal pain (principal) ==

== ENCOUNTER → 2024-04-11 | Outpatient (REF) | payer OTHER ==
[~2024-04-11] MED LIST changes: +FLUO-290; -FLUO10CA18; +GABA-1172; -GABA-282
[2024-04-11 14:26] LABS: Trichomonas vaginalis (AMP) NOT DETECTED (NEGATIVE)
[2024-04-11 14:49] LABS: GC DNA AMPLIFICATION NEGATIVE (NEGATIVE)
[2024-04-14 12:26] LABS: HPV APTIMA Not Detected (Not Detected)
== END ==
LOC: M SFHCWAGY 12:37
PROVIDERS: ATTEND Obstetrics & Gynecology
DX: Z12.4 Encounter for screening for malignant neoplasm of cervix (principal)

== ENCOUNTER → 2024-04-20 | Outpatient (CLI) | payer OTHER | LOC: M WUC 09:21 | PROVIDERS: ATTEND Student in an Organized Health Care Education/Training Program | DX: M25.531 Pain in right wrist (principal) ==

== ENCOUNTER → 2024-08-08 | Outpatient (REF) | payer OTHER ==
[2024-08-09 16:11] LABS: GC DNA AMPLIFICATION POSITIVE (NEGATIVE)
== END ==
LOC: M LAB REF 12:06
PROVIDERS: ATTEND Physician Assistant
DX: N76.0 Acute vaginitis (principal)

== ENCOUNTER 2024-10-21 11:53 | Emergency (ER) | payer OTHER ==
[~2024-10-21] VITALS: Ht 152.4 cm; Wt 50.3 kg
[~2024-10-21 11:53] MED LIST changes: +DIVA-41; -DIVA500T94; -GABA-1172; +GABA-1172 PO; -OXCA300T14; +OXCA300T14 PO
[2024-10-21] MEDS ORDERED: OLAN1TAB16 PO (12:20)
[2024-10-21] MEDS ORDERED: XANA0.25 PO (12:20)
[2024-10-21 13:40] LABS: HCG, SERUM QUALITATIVE NEGATIVE (NEGATIVE)
[2024-10-21] MEDS ORDERED: LIDO4CRE12 TOP (15:46)
[2024-10-21 15:55] VITALS: BP 107/52; TEMP 99; O2SAT 100
== END 2024-10-21 15:56 | disposition home or self-care (01) ==
LOC: M ED 11:53
DX: M54.50 Low back pain, unspecified (principal); Z79.899 Other long term (current) drug therapy

== ENCOUNTER → 2024-11-06 | Outpatient (CLI) | payer OTHER ==
[~2024-11-06] MED LIST changes: +LIDO4CRE12 TOP; +OLAN1TAB16 PO; +XANA0.25 PO
[2024-11-06 16:04] LABS: HIV 1&2 SCREEN NEGATIVE (NEGATIVE)
[2024-11-06 16:12] LABS: HEPATITIS C VIRUS ABY INDEX < 0.02 INDEX (<0.8)
[2024-11-06 16:59] LABS: Trichomonas vaginalis (AMP) NOT DETECTED (NEGATIVE)
[2024-11-06 17:22] LABS: GC DNA AMPLIFICATION NEGATIVE (NEGATIVE)
== END ==
LOC: M PLALAB 12:52
PROVIDERS: ATTEND Obstetrics & Gynecology
DX: Z11.3 Encounter for screening for infections with a predominantly sexual mode of transmission (principal)

== ENCOUNTER → 2024-11-30 | Outpatient (CLI) | payer OTHER ==
[2024-11-30 11:14] LABS: BASO # 0.0 10^3/uL (0.0-0.2); BASO % 0.5 % (0.0-1.0); EOS # 0.0 10^3/uL (0.0-0.5); EOS % 0.5 % (0.0-3.0); LYMPH # 1.8 10^3/uL (1.5-5.0); LYMPH % 24.0 % (24.0-44.0); MONO # 0.8 10^3/uL (0.0-0.8); MONO % 10.6 % (2.0-8.0); NEUTROPHILS # 4.8 10^3/uL (1.5-8.5); NEUTROPHILS % 64.0 % (36.0-66.0); PLATELET COUNT, AUTOMATED 233 10^3/uL (150-450)
[2024-11-30 11:29] LABS: ESTIMATED AVERAGE GLUCOSE 114.0 MG/DL (60-110)
[2024-11-30 11:42] LABS: ALT/SGPT 19 U/L (7.0-40); AST/SGOT 16 U/L (<34); CALCIUM LEVEL 9.4 MG/DL (8.5-10.1); CARBON DIOXIDE LEVEL 26 MMOL/L (20-31); CHLORIDE LEVEL 105 MMOL/L (98-107); CHOLESTEROL LEVEL 165 MG/DL (<200); CHOLESTEROL RISK RATIO 2.55 (<5); CREATININE FOR GFR 0.50 MG/DL (0.55-1.30); GLOMERULAR FILTRATION RATE > 90.0 (>60); LDL CHOLESTEROL 92.0 MG/DL (<100); NON-HDL-C 100.4 MG/DL; POTASSIUM SERUM 3.9 MMOL/L (3.5-5.1); SODIUM LEVEL 141 MMOL/L (136-145); TRIGLYCERIDES LEVEL 42 MG/DL (<150)
== END ==
LOC: M LAB 09:11
DX: F31.81 Bipolar II disorder (principal)